=== PATIENT | female | born 1960 | race African-American/Black ===

== ENCOUNTER → 2017-12-01 15:15 | Outpatient (CLI) | payer BC, MEDICAID, SELFPAY | PROVIDERS: Family Provider Internal Medicine; PCP Internal Medicine; Visit Provider Nurse Practitioner Women's Health | DX: Z12.4 Encounter for screening for malignant neoplasm of cervix (principal) ==

== ENCOUNTER → 2018-01-13 13:20 | Outpatient (CLI) | payer BC, MEDICAID, SELFPAY ==
--- NOTE | 2018-01-13 13:30 | HPBI_ITS ---
MAMMOGRAPHY - UNILATERAL DIAGNOSTIC: RIGHT BREAST REASON FOR EXAM: Female, 57 years old. Pain in the lower inner quadrant of the right breast for 3 months. PERTINENT HISTORY: Non-contributory. TECHNIQUE: Digital unilateral breast birgit (3D mammographic acquisition) in the CC and MLO projections. 2-D mediolateral oblique (MLO) and craniocaudad (CC) views of both breasts were obtained. CAD: Full Field Digital Mammography with Computer Added Detection was performed. COMPARISON: Comparison is made with prior outside examination dated August 11, 2017. FINDINGS: Breast Composition: The breasts are heterogeneously dense, which may obscure small masses. There are no dominant masses or suspicious calcifications. There is a 6.2 mm x 6.5 mm well-defined nodule in the slightly inferior lateral midportion of the right breast. This most likely represents a small lymph node. Correlation with ultrasound is recommended. No other significant abnormalities are identified. HPBI/DIAG MAMM W/CAD, UNILAT IMPRESSION: 6.2 mm x 6.5 mm nodular density in the right breast as described. Correlation with ultrasound is recommended. ASSESSMENT CATEGORY: BIRADS Category 0: Incomplete. Need additional imaging evaluation. A letter regarding these results will be sent to the patient by the facility within 30 days. Approximately 10% of breast cancers are not detected by mammography. A normal mammogram should not delay biopsy of a clinically suspicious abnormality. Electronically Signed: Wale Gonzalez MD at 15:04 EDT Tel [phone], Service support ,
--- NOTE | 2018-01-13 14:30 | US_ITS ---
STUDY: ULTRASOUND BREAST - RIGHT REASON FOR EXAM: Female, 57 years old. Tenderness in the lower inner quadrant of the right breast. TECHNIQUE: Axial and longitudinal images of the RIGHT breast were performed with a high resolution ultrasound transducer. COMPARISON: Comparison is made with prior mammogram done earlier today. FINDINGS: RIGHT Breast: Sonographic examination of the lower inner quadrant was obtained. No solid or cystic mass lesion is seen. Routine mammographic follow-up is recommended. US/Breast Limited Unilateral IMPRESSION: No sonographic abnormality is seen. ASSESSMENT CATEGORY: BIRADS Category 2: Benign. A letter regarding these results will be sent to the patient by the facility within 30 days. Electronically Signed: Wale Gonzalez MD at 8:39 EDT Tel [phone], Service support ,
== END ==
PROVIDERS: Family Provider Internal Medicine; PCP Internal Medicine; Visit Provider Nurse Practitioner Women's Health
DX: N64.4 Mastodynia (principal)
CPT/HCPCS: 76642; 77061; 77065; G0279

== ENCOUNTER → 2018-12-16 16:33 | Outpatient (CLI) | payer BC, MEDICAID, SELFPAY ==
[2017-12-01 09:27] VITALS: BMI 39.6
--- NOTE | 2018-12-16 16:36 | BI_ITS ---
MAMMOGRAPHY - BILATERAL SCREENING REASON FOR EXAM: Female, 58 years old. Routine annual screening examination. PERTINENT HISTORY: Non-contributory. TECHNIQUE: Digital bilateral breast birgit (3D mammographic acquisition) in the CC and MLO projections. 2-D mediolateral oblique (MLO) and craniocaudad (CC) views of both breasts were obtained. CAD: Full Field Digital Mammography with Computer Added Detection was performed. COMPARISON: Comparison is made with prior mammogram dated January 13, 2018 and prior sonogram of the right breast dated January 13, 2018. FINDINGS: Breast Composition: The breasts are heterogeneously dense, which may obscure small masses. There is a 6.4 mm x 7.8 mm slightly irregular nodular density in the inferior central portion of the left breast. The patient will be recalled for additional views including 90 degree lateral and compression spot views and ultrasound of this nodular density. No other significant abnormalities are identified. BI/SCREENING MAMM (CAD), BILAT IMPRESSION: Nodular density in the left breast as described. The patient will be recalled for additional mammographic views and ultrasound. Recall Side: Left Breast ASSESSMENT CATEGORY: BIRADS Category 0: Incomplete. Need additional imaging evaluation. A letter regarding these results will be sent to the patient by the facility within 30 days. Approximately 10% of breast cancers are not detected by mammography. A normal mammogram should not delay biopsy of a clinically suspicious abnormality. [id number] Electronically Signed: Wale Gonzalez MD at 8:36 EST , Service support ,
== END ==
PROVIDERS: Family Provider Internal Medicine; PCP Internal Medicine; Referring Provider Nurse Practitioner Women's Health; Visit Provider Nurse Practitioner Women's Health
DX: Z12.31 Encounter for screening mammogram for malignant neoplasm of breast (principal)
CPT/HCPCS: 77063; 77067

== ENCOUNTER 2018-12-24 12:00 | Outpatient (RCR) | payer BC, MEDICAID, SELFPAY | END 2018-12-30 23:59 | LOC: NS 12:00 | PROVIDERS: Family Provider Internal Medicine; PCP Internal Medicine; Visit Provider Internal Medicine | DX: E66.01 Morbid (severe) obesity due to excess calories (principal); E78.00 Pure hypercholesterolemia, unspecified; M17.0 Bilateral primary osteoarthritis of knee | CPT/HCPCS: 97802; 97803 ==

== ENCOUNTER → 2018-12-28 09:28 | Outpatient (CLI) | payer BC, MEDICAID, SELFPAY ==
[2017-12-01 09:27] VITALS: BMI 39.6
--- NOTE | 2018-12-28 09:30 | BI_ITS ---
MAMMOGRAPHY - BILATERAL DIAGNOSTIC REASON FOR EXAM: Female, 58 years old. The patient was recalled for additional views of the left breast. PERTINENT HISTORY: Non-contributory. TECHNIQUE: Compression spot views and 90 degree lateral view of the left breast were obtained. CAD: Full Field Digital Mammography with Computer Added Detection was performed. COMPARISON: Comparison is made with prior mammogram dated December 16, 2018. FINDINGS: Breast Composition: The breasts are heterogeneously dense, which may obscure small masses. Stable appearance of the 6.4 mm x 7.8 mm slightly irregular nodule in the inferior central portion of the left breast as described. Correlation with ultrasound is recommended for further evaluation. No other significant abnormalities are identified. BI/DIAG MAMM W/CAD, BILAT IMPRESSION: Persistent nodular density as described. Correlation with ultrasound is recommended. ASSESSMENT CATEGORY: BIRADS Category 0: Incomplete. Need additional imaging evaluation. A letter regarding these results will be sent to the patient by the facility within 30 days. Approximately 10% of breast cancers are not detected by mammography. A normal mammogram should not delay biopsy of a clinically suspicious abnormality. Electronically Signed: Wale Gonzalez, at 10:50 EST , Service support ,
--- NOTE | 2018-12-28 09:30 | US_ITS ---
STUDY: ULTRASOUND BREAST - LEFT REASON FOR EXAM: Female, 58 years old. Abnormal screening mammogram. TECHNIQUE: Axial and longitudinal images of the LEFT breast were performed with a high resolution ultrasound transducer. COMPARISON: Comparison is made with prior mammogram dated December 16, 2018 and mammogram done earlier today. FINDINGS: LEFT Breast: The mammographic abnormality corresponds to a 6 mm x 7 mm x 5 mm slightly irregular solid and cystic nodule at the 7:00 position of the breast at 5 cm from nipple. A biopsy recommended for further evaluation. US/Breast Limited Unilateral IMPRESSION: 6 mm x 7 mm x 5 mm solid/cystic nodule at the 7:00 position of the breast at 5 cm from the nipple. A biopsy recommended. ASSESSMENT CATEGORY: BIRADS Category 4: Suspicious - Biopsy Should Be Considered. A letter regarding these results will be sent to the patient by the facility within 30 days. Electronically Signed: Wale Gonzalez, at 10:48 EST , Service support ,
== END ==
PROVIDERS: Family Provider Internal Medicine; PCP Internal Medicine; Referring Provider Nurse Practitioner Women's Health; Visit Provider Nurse Practitioner Women's Health
DX: R92.8 Other abnormal and inconclusive findings on diagnostic imaging of breast (principal)
CPT/HCPCS: 76642; 77066

== ENCOUNTER → 2019-01-11 09:01 | Outpatient (CLI) | payer BC, MEDICAID, SELFPAY ==
[2019-01-07 09:46] VITALS: BMI 42.3
--- NOTE | 2019-01-11 09:03 | US_ITS ---
STUDY: ULTRASOUND BREAST - LEFT REASON FOR EXAM: Female, 58 years old. Ultrasound guided left breast biopsy. TECHNIQUE: Axial and longitudinal images of the LEFT breast were performed with a high resolution ultrasound transducer. COMPARISON: Comparison is made with prior mammogram dated December 28, 2018 and prior ultrasound the left breast dated December 28, 2018. FINDINGS: LEFT Breast: Under direct sonographic guidance, the surgeon performed 4 core biopsies of the hypoechoic solid/cystic nodule at the 7:00 position breast at 5 cm from nipple. US/US Breast Biopsy 1st Lesion IMPRESSION: Ultrasound guided left breast biopsy. ASSESSMENT CATEGORY: BIRADS Category 4: Suspicious - Biopsy Should Be Considered. A letter regarding these results will be sent to the patient by the facility within 30 days. Electronically Signed: Wale Gonzalez, at 13:19 EDT , Service support ,
--- NOTE | 2019-01-11 09:30 | BRBX_PTH ---
PATIENT: GEORGIA GARBER LOC: OPUS U#:[id number] AGE/SX: 65/F ROOM: RE01/11/[address]: Dr. Kristi Licea MD : 1960 BED: DIS: SPEC #: [id number] RECD: 01/11/19 09:54 STATUS: SOUTH REJerrod #: [id number] KYLE: 01/11/19 09:[address]: Kristi Licea DEPT: SURGICAL PATHOLOGY RECD BY: Nicola Rao ENTERED: 01/11/19 11:35 SP TYPE: BREAST BX OTHR DR: Dr. Divya Alexandra MD Tissues: Left breast, NOS Procedures: Surgery Specimen Level IV HEADER OPERATION: Left breast biopsy PRE-OP DIAGNOSIS: Left breast mass TISSUE SUBMITTED: Left breast mass 7 o'clock, 5 cm from nipple, solid/cystic ISCHEMIC TIME: 1 minute FIXATION TIME: 10 hours MICROSCOPIC DIAGNOSIS Left breast mass, 7 o'clock, 5 cm from nipple, core biopsy: Fragments of fatty breast tissue with focal fibrocystic changes and blood clots. Negative for atypia or malignancy. SUE:alia 01/12/19 COMMENT Correlation with clinical, radiologic findings and appropriate follow up are necessary. MICROSCOPIC DESCRIPTION Slides are reviewed. GROSS DESCRIPTION Received in fixative is one container labeled with the patient's name and designated left breast. The specimen consists of multiple elongated fragments of young-yellow fibroadipose tissue that in aggregate measure 2.5 x 1.5 x 0.1 cm. The entire specimen is submitted in one cassette. / SUE:alia 01/11/19 TC:5 CPT: 07707
--- NOTE | 2019-01-11 10:00 | PCM.OPRPT ---
Report of Operation Date of Procedure: 01/11/19 Pre-Operative Diagnosis: Left breast nodule at 7:00 5 cm from the nipple Post-Operative Diagnosis: Same Surgery/Procedure Performed:: Left breast ultrasound-guided core biopsy Type of Anesthesia:: Local Specimen's removed: Left breast nodule 7:00 5 cm from the nipple Estimated Blood Loss (mL): minimal Description of Procedure: Procedure: Left ultrasound-guided core biopsy Indications: 58 year-old female with cystic/solid nodule at 7:00 in the left breast 5 centimeters from the nipple. Risk benefits were discussed the patient and she elected to proceed with ultrasound guided core biopsy with clip placement Description of procedure: Patient was brought into the ultrasound room in the left breast was marked. A timeout was completed verifying correct patient, procedure, site, specially, prior to beginning procedure. The left breast was prepped and draped in usual sterile fashion and using local anesthesia was obtained with 1% lidocaine with epi. The lesion was located with the ultrasound. Small incision was made with 11 blade to introduced the mammotome through the skin. Under ultrasound guidance multiple core samples were obtained using then 13-gauge mammotome and sent in formalin for pathology. The BARD ULTRACLIP ribbon shape was then deployed into the biopsy cavity under ultrasound guidance and a picture was taken. Upon completion procedure hemostasis was obtained and a Steri-Strip and OpSite were placed. Patient was then taken to the mammography suite for clip verification. The clip was verified. The patient tolerated the procedure well and was discharged from the breast imaging department good condition. Grafts/Implants Used: Bard ULTRACLIP dual trigger?ribbon shape - Complications None
== END ==
PROVIDERS: Family Provider Internal Medicine; PCP Internal Medicine; Referring Provider Surgery; Visit Provider Surgery
DX: N63.20 Unspecified lump in the left breast, unspecified quadrant (principal)
CPT/HCPCS: 19083; 88305

== ENCOUNTER 2019-01-21 10:00 | Outpatient (RCR) | payer BC, MEDICAID, SELFPAY ==
[2017-12-01 09:27] VITALS: BMI 39.6
[2019-01-07 09:46] VITALS: BMI 42.3
== END 2019-01-30 23:59 ==
LOC: NS 10:00
PROVIDERS: Family Provider Internal Medicine; PCP Internal Medicine; Visit Provider Internal Medicine
DX: E66.01 Morbid (severe) obesity due to excess calories (principal); E78.00 Pure hypercholesterolemia, unspecified; M17.0 Bilateral primary osteoarthritis of knee
CPT/HCPCS: 97803

== ENCOUNTER 2019-02-07 11:15 | Outpatient (RCR) | payer BC, MEDICAID, SELFPAY ==
[2019-01-07 09:46] VITALS: BMI 42.3
== END 2019-03-01 23:59 ==
LOC: NS 11:15
PROVIDERS: Family Provider Internal Medicine; PCP Internal Medicine; Visit Provider Internal Medicine
DX: E66.01 Morbid (severe) obesity due to excess calories (principal); E78.00 Pure hypercholesterolemia, unspecified; M17.0 Bilateral primary osteoarthritis of knee; Z71.3 Dietary counseling and surveillance
CPT/HCPCS: 97803

== ENCOUNTER 2019-03-18 10:45 | Outpatient (RCR) | payer BC, MEDICAID, SELFPAY ==
[2019-01-07 09:46] VITALS: BMI 42.3
== END 2019-04-01 23:59 ==
LOC: NS 10:45
PROVIDERS: Family Provider Internal Medicine; PCP Internal Medicine; Visit Provider Internal Medicine
DX: E66.01 Morbid (severe) obesity due to excess calories (principal); E78.00 Pure hypercholesterolemia, unspecified; M17.0 Bilateral primary osteoarthritis of knee; Z71.3 Dietary counseling and surveillance
CPT/HCPCS: 97803

== ENCOUNTER 2019-05-31 09:30 | Outpatient (RCR) | payer BC, MEDICAID, SELFPAY ==
[2019-01-07 09:46] VITALS: BMI 42.3
== END 2019-06-01 23:59 ==
LOC: NS 09:30
PROVIDERS: Family Provider Internal Medicine; PCP Internal Medicine; Visit Provider Internal Medicine
DX: Z71.3 Dietary counseling and surveillance (principal); E66.01 Morbid (severe) obesity due to excess calories; E78.00 Pure hypercholesterolemia, unspecified; M17.0 Bilateral primary osteoarthritis of knee
CPT/HCPCS: 97803

== ENCOUNTER 2019-06-28 11:00 | Outpatient (RCR) | payer BC, MEDICAID, SELFPAY ==
[2019-01-07 09:46] VITALS: BMI 42.3
== END 2019-06-28 23:59 | disposition home or self-care (01) ==
LOC: NS 11:00
PROVIDERS: Family Provider Internal Medicine; PCP Internal Medicine; Visit Provider Internal Medicine
DX: Z71.3 Dietary counseling and surveillance (principal); E66.01 Morbid (severe) obesity due to excess calories; E78.00 Pure hypercholesterolemia, unspecified; M17.0 Bilateral primary osteoarthritis of knee
CPT/HCPCS: 97802; 97803

== ENCOUNTER → 2019-07-08 08:45 | Outpatient (CLI) | payer BC, MEDICAID, SELFPAY ==
[2019-01-07 09:46] VITALS: BMI 42.3
--- NOTE | 2019-07-08 08:48 | BI_ITS ---
MAMMOGRAPHY - UNILATERAL DIAGNOSTIC: LEFT BREAST REASON FOR EXAM: Female, 59 years old. Six-month follow-up for left breast biopsy. PERTINENT HISTORY: Non-contributory. TECHNIQUE: Digital unilateral breast birgit (3D mammographic acquisition) in the CC and MLO projections. 2-D mediolateral oblique (MLO) and craniocaudad (CC) views of both breasts were obtained. CAD: Full Field Digital Mammography with Computer Added Detection was performed. COMPARISON: Comparison is made with prior study dated December 16, 2018 and December 28, 2018. FINDINGS: Breast Composition: The breasts are heterogeneously dense, which may obscure small masses. There are no dominant masses or suspicious calcifications. The previously seen nodular density in the inferior central portion of the left breast has decreased in size. A tissue clip marker is seen within it. No other significant abnormalities are identified. BI/DIAG MAMM W/CAD, UNILAT IMPRESSION: Stable unilateral diagnostic mammogram. One year follow-up mammogram recommended. (A) ASSESSMENT CATEGORY: BIRADS Category 2: Benign. A letter regarding these results will be sent to the patient by the facility within 30 days. Approximately 10% of breast cancers are not detected by mammography. A normal mammogram should not delay biopsy of a clinically suspicious abnormality. Electronically Signed: Wale Gonzalez, at 10:20 EDT , Service support ,
--- NOTE | 2019-07-08 08:48 | US_ITS ---
STUDY: ULTRASOUND BREAST - LEFT REASON FOR EXAM: Female, 59 years old. Six-month follow-up following left breast biopsy. TECHNIQUE: Axial and longitudinal images of the LEFT breast were performed with a high resolution ultrasound transducer. COMPARISON: Comparison is made with prior ultrasound of the breasts dated January 11, 2019 and prior mammogram done earlier today. FINDINGS: LEFT Breast: The previously seen nodule at the 7:00 position of the breast at 5 cm from nipple is not seen at this time. This corresponds to the mammographic findings. US/Breast Limited Unilateral IMPRESSION: No sonographic abnormality seen at this time. ASSESSMENT CATEGORY: BIRADS Category 1: Negative. A letter regarding these results will be sent to the patient by the facility within 30 days. Electronically Signed: Wale Gonzalez, at 11:00 EDT , Service support ,
== END ==
PROVIDERS: Family Provider Internal Medicine; PCP Internal Medicine; Referring Provider Surgery; Visit Provider Surgery
DX: N63.20 Unspecified lump in the left breast, unspecified quadrant (principal)
CPT/HCPCS: 76642; 77061; 77065; G0279

== ENCOUNTER 2019-10-23 20:35 | Emergency (ER) | payer BC, MEDICAID, SELFPAY ==
[2019-01-07 09:46] VITALS: BMI 42.3
[2019-10-23 20:36] VITALS: BP 164/69; PULSE 72; RESP 16; TEMP 36.7; O2SAT 99; BMI 40.7
--- NOTE | 2019-10-23 21:12 | CT_ITS ---
HISTORY: DIZZINESS AND HEADACHE WITH PAIN TO BACK OF HEAD HX:HTN,DIABETES,VERTIGO,PT JUST STARTED BP MEDS THIS WEEK ADDITIONAL HISTORY: None provided. COMPARISON: None TECHNIQUE: Axial, coronal and sagittal CT images were obtained of the brain without intravenous contrast. Number of images including paperwork: 235. A radiation dose optimization technique was used for this scan. FINDINGS: BRAIN PARENCHYMA: No acute hemorrhage or mass. No definite acute infarct; MRI more sensitive. EXTRA-AXIAL SPACES: No acute hemorrhage. VENTRICULAR SYSTEM: No hydrocephalus. PARANASAL SINUSES AND MASTOIDS: No air-fluid level in the imaged extent. ORBITS: Unremarkable imaged extent. SKELETON AND SOFT TISSUES: Calvarium intact. ASPECTS score: Not applicable. CT/Brain/Head without Contrast IMPRESSION: No acute intracranial abnormality. Individualized dose optimization techniques were used for this CT. at 2244 Reported and signed by: Kasia Garcia MD Electronically Signed: Kasia Garcia MD at 22:44 EST Tel , Service support ,
--- NOTE | 2019-10-23 21:12 | EKG12_ITS ---
Test Reason : DIZZY Blood Pressure : / mmHG Vent. Rate : 067 BPM Atrial Rate : 067 BPM P-R Int : 164 ms QRS Dur : 096 ms QT Int : 422 ms P-R-T Axes : 050 -15 032 degrees QTc Int : 445 ms Normal sinus rhythm Normal ECG Confirmed by MARYCARMEN ALVAREZ, SENAIT ([id number]), rewrite editor ALICIA WHITE ([id number]) on 10/27/2019 8:51:34 AM Referred By: [place] Confirmed By:SENAIT CONROY MD
--- NOTE | 2019-10-23 21:14 | ED.RN ---
NO OLD EKGS IN MUSE
[2019-10-23 21:32] LABS: Absolute Lymphocyte Count 2.63 X10^3/uL (0.83-4.51); Absolute Neutrophil Count 9.2 X10^3/uL (2.0-7.7); Basophil# 0.06 X10^3/uL; Basophil% 0.5 % (0-1); Eosinophil# 0.27 X10^3/uL; Eosinophils% 2.1 % (0-5); Hematocrit 45.7 % (37-47); Hemoglobin 14.4 g/dL (12.0-15.0); Lymphocyte # 2.63 X10^3/ul (4.0); Lymphocyte % 20.2 % (19-41); Mean Corp Hgb Conc 31.5 g/dL (32-36); Mean Corpuscular Hgb 28.3 pg (27.0-32.0); Mean Corpuscular Volume 89.8 fL (81-99); Mean Platelet Vol. 10.5 fl (6.2-12.0); Monocyte# 0.86 X10^3/uL; Monocyte% 6.6 % (0-10); NRBC Flagged by Analyzer 0 % (0-5); Neutrophil # 9.19 X10^3/uL (2.7-7.7); Neutrophil % 70.4 % (47-70); Platelet Count 352 K/mm3 (150-450); RBC Distribution Width CV 13.2 % (11.6-14.6); RBC Distribution Width SD 43.4 fl (35.1-43.9); Red Blood Count 5.09 M/mm3 (4.2-5.4)
[2019-10-23 21:45] LABS: Anion Gap 5 (5-15); BUN 17 mg/dL (7-18); BUN/Creat Ratio 17.3 RATIO (10-20); Calcium,Total 9.3 mg/dL (8.5-10.1); Chloride 106 mmol/L (98-107); Creatinine, Serum 0.98 mg/dL (0.55-1.02); EST Glomerular Filtration Rate 61 mL/min (>60); Est Glom Filt Rate - Afr Amer 74 mL/min (>60); Estimated Creatinine Clearance 59.37 ml/min; Glucose 108 mg/dL (74-106); Potassium 3.5 mmol/L (3.5-5.1); Sodium Level 141 mmol/L (136-145)
--- NOTE | 2019-10-23 23:10 | ED.DCSUM_ITS ---
- ER Visit Summary Date of Service: 10/23/19 Chief Complaint: Neck pain History of Present Illness: The patient is a [address] Alexandra. Patient reports that she is sitting on the table and been segmented for approximate 15 minutes when she had the abrupt onset of an aching pain the back of her neck that was 7 out of 10 in severity at worst. Is 4-10 currently. States that she became very lightheaded with this. She did not pass out. However, she reports that her vision blurred for approximately 15 minutes. She denies any associated chest pain, shortness of breath, or palpitations. She denies any numbness or weakness. She denies any recent trauma. No fall, MVA, or change in activity. Patient denies any other complaints. No headache, numbness, weakness, fever, chills. Physical Examination: Vitals: Stable. Afebrile. General: Well-nourished and well-developed. Head: Normocephalic atraumatic. Neck: Supple, no lymphadenopathy. No JVD. Moderate tenderness palpation of the insertion of her paraspinous musculature on the occipital scalp bilaterally that does reproduce her pain. Cardiovascular: Regular rate and rhythm. No murmurs. Respiratory: No respiratory distress. Clear to auscultation bilaterally. Abdominal: Soft, nontender, nondistended, normal bowel sounds. No guarding, rebound, or peritoneal signs. Back: Nontender. Extremities: Nontender, no edema. Skin: Normal color, no rash. Neurologic: Alert and oriented ?3. Cranial nerves II through XII are intact. Normal strength and sensation. Psych: Normal affect. Test Results: EKG is sinus at [address] changes. Troponin is negative. Chem-7 is more for glucose 108. CBC is marked for white count of 13.0. CT brain shows no acute disease. Emergency Department Course and Treatment: Patient's NIH scale is 0. She is res ting comfortably. She was given a dose of [place] p.o. Treatment Plan: Patient be discharged with [place]. Instructed to follow-up with her primary care physician 1 to 2 days if not improving. Return to the emergency department for any worsening symptoms. Disposition: To home in improved and stable condition. Impression: 1. Neck spasm. 2. Near syncope. This note was generated with [employer] software. It may contain incorrect words, spelling, and punctuation that were not noted in review of the chart prior to signing ED Disposition - Plan for ED Patient: Disposition: Home or Assisted Living Instructions: NECK SPASM, No Trauma Prescriptions: Hydrocodone Bitart/Apap 5-325 [[place] 5MG-325MG] 1 tab PO Q4H PRN PRN 2 Days #10 tab PRN Reason: Pain Prescription Printed Referrals: Divya Alexandra MD [Primary Care Provider] - 1-2 Days if not improving
[2019-10-23] MEDS: HYDROcodone Bitartrate/Apap 5/325 Tablet PO (23:16)
[2019-10-23 23:17] VITALS: BP 136/82; PULSE 61; RESP 18; O2SAT 99
== END 2019-10-23 23:23 | disposition home or self-care (01) ==
LOC: ED 21:15
PROVIDERS: Emergency Provider Emergency Medicine; Family Provider Internal Medicine; PCP Internal Medicine
DX: M62.838 Other muscle spasm (principal); R55 Syncope and collapse; M54.2 Cervicalgia; I10 Essential (primary) hypertension; H53.8 Other visual disturbances; R42 Dizziness and giddiness; Z79.899 Other long term (current) drug therapy
CPT/HCPCS: 70450; 80048; 84484; 85025; 93005; 96360; 99285; J7030; A4216

== ENCOUNTER 2020-05-29 09:16 | Emergency (ER) | payer BC, MEDICAID, SELFPAY ==
[2020-05-29 09:17] VITALS: BP 204/108; PULSE 83; RESP 16; TEMP 37; O2SAT 98; BMI 40.7
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
[2020-05-29] MEDS: Ketorolac 30 MG/ML Syringe IM (09:43)
== END 2020-05-29 10:07 | disposition home or self-care (01) ==
PROVIDERS: Emergency Provider Student in an Organized Health Care Education/Training Program; PCP Internal Medicine
DX: S29.012A Strain of muscle and tendon of back wall of thorax, initial encounter (principal); V44.5XXA Car driver injured in collision with heavy transport vehicle or bus in traffic accident, initial encounter; Y93.9 Activity, unspecified; Y92.9 Unspecified place or not applicable
CPT/HCPCS: 96372; 99282

== ENCOUNTER → 2022-07-10 | Outpatient (CLI) | payer OTHER, MEDICAID, SELFPAY ==
--- NOTE | 2022-07-10 15:48 | CT_ITS ---
STUDY: CT SOFT TISSUE NECK WITHOUT CONTRAST REASON FOR EXAM: Female, 62 years old. Subglottic stenosis. RADIATION DOSAGE (If Supplied By Facility): CTDIvol = ( 17.68 ) mGy, DLP = ( 481.45 ) mGycm TECHNIQUE: The patient was scanned in a multi-detector CT scanner. High resolution transaxial imaging was performed without the administration of intravenous contrast material. Sagittal and coronal images were reconstructed. Individualized dose optimization techniques were used for this CT. COMPARISON: None. FINDINGS: Normal bilateral parotid glands. Normal bilateral milling supervisor spaces. Normal bilateral parapharyngeal spaces. Normal bilateral carotid spaces. Normal bilateral sublingual and submandibular glands and spaces. Normal visualized nasopharynx. Normal retropharyngeal space. Normal perivertebral space. Normal visualized bilateral faucial tonsils. The visualized tongue, tongue base and oropharynx are normal. The visualized cervical lymph nodes (levels I-) are within normal size limits, and maintain normal morphology. There is no demonstrated solid or cystic mass lesion. Normal epiglottis, bilateral vallecula and hypopharynx. The pre-epiglottic and paraglottic adipose spaces are normal. Normal visualized bilateral piriform sinuses, aryepiglottic folds, vocal cords, and arytenoid-cricoid articulations. Question soft tissue density versus debris within the trachea just below the true cords. This is best seen on image 37 of series 2. Otherwise normal subglottic trachea. Normal bilateral lobes of the thyroid gland. Normal visualized pulmonary apices. Normal visualized paranasal sinuses. There is multilevel degenerative changes of the cervical spine. CT/Soft Tissue Neck without Contr IMPRESSION: 1. Minimal density in the subglottic trachea immediately below the true cords. Debris versus soft tissue swelling. 2. Degenerative changes cervical spine. 3. Otherwise normal noncontrast CT of the soft tissues of the neck. Electronically Signed: Jamar Kelly DO at 16:16 EDT ,
== END | disposition home or self-care (01) ==
LOC: CT 15:47
PROVIDERS: PCP Internal Medicine; Referring Provider Otolaryngology; Visit Provider Otolaryngology
DX: J95.5 Postprocedural subglottic stenosis (principal)
CPT/HCPCS: 70490

== ENCOUNTER → 2023-04-24 | Outpatient (CLI) | payer OTHER, MEDICAID, SELFPAY ==
[2023-04-29 16:09] LABS: HPV APTIMA, High Risk Negative (Negative)
== END | disposition home or self-care (01) ==
LOC: LABSPEC 12:31
PROVIDERS: PCP Internal Medicine; Referring Provider Obstetrics & Gynecology; Visit Provider Obstetrics & Gynecology
DX: Z12.4 Encounter for screening for malignant neoplasm of cervix (principal); R10.2 Pelvic and perineal pain
CPT/HCPCS: 87086; 87088; 87624; 88175; G0145

== ENCOUNTER → 2023-04-28 | Outpatient (CLI) | payer OTHER, MEDICAID, SELFPAY ==
--- NOTE | 2023-04-28 15:09 | US_ITS ---
INDICATION: pelvic pain EXAMINATION: Ultrasound US Pelvis Non OB Complete With Transvaginal Imaging COMPARISON: None. FINDINGS: 91 grayscale ultrasound images of the pelvis obtained both transabdominally and transvaginally. In addition dedicated ovarian color Doppler and Doppler waveform interrogation was performed. Suboptimal secondary to overlying bowel. UTERUS: Uterus measures : 7.2 x 4.9 x 3.3 cm. Endometrial thickness of 0.4 cm. Myometrium is somewhat heterogeneous. ADNEXA: Flow is documented to bilateral ovaries by color Doppler as well as Doppler waveform. Right ovary is not visualized. Left ovary is unremarkable. No significant free fluid. US/Pelvic (Non ) IMPRESSION: Left ovary is not visualized. Otherwise unremarkable pelvic ultrasound. Electronically Signed: Presley Chaudhry MD at 4:30 EDT ,
== END | disposition home or self-care (01) ==
PROVIDERS: PCP Internal Medicine; Referring Provider Obstetrics & Gynecology; Visit Provider Obstetrics & Gynecology
DX: R10.2 Pelvic and perineal pain (principal)
CPT/HCPCS: 76830; 76856; 93976

== ENCOUNTER 2023-12-23 13:56 | Outpatient (RCR) | payer OTHER, MEDICAID, SELFPAY ==
[2023-12-23 14:12] VITALS: BP 146/72; PULSE 85; RESP 18; TEMP 36.9; BMI 42.3
--- NOTE | 2023-12-23 16:07 | PCM.WC.HP ---
History of Present Illness Date of Service: 12/23/23 Chief Complaint: Right leg ulceration History of Wound: Chronic wound since August 2023 Progress of Wound: Ms. Gant is a 63-year-old female presenting to the wound care center at [facility] with a chief complaint of full-thickness ulceration to the lateral aspect of the right leg. Patient is unsure how the wound came about. Patient is unsure if she struck her wound, got a bug bite or accidentally cut her right leg. What she does know is that the wound has been present since August 2023. She admits that the wound is still present without treatment. She denies being a diabetic. She denies any treatment to the area. She denies constitutional symptoms. No other pedal complaints at this time. [facility] Medical History Arthritis Home Medications acetaminophen 500 mg tablet (Tylenol Extra Strength) 500 mg PO Q6H PRN Pain Score 1-08/1101/07/19 [History Last Taken Unknown] hydrochlorothiazide 12.5 mg capsule 25 mg PO DAILY 05/29/20 [History Last Taken 05/29/20] atorvastatin 20 mg tablet (Lipitor) 40 mg PO DAILY 04/24/23 [History Last Taken Unknown] lansoprazole 30 mg capsule,delayed release (Prevacid) 30 mg PO DAILY 04/24/23 [History Last Taken Unknown] valsartan 80 mg tablet 160 mg PO DAILY 04/24/23 [History Last Taken Unknown] carbamide peroxide 6.5 % ear drops (Debrox) 5 drp EACH EAR BID 12/23/23 [History Last Taken Unknown] etodolac 400 mg tablet 400 mg PO BID 12/23/23 [History Last Taken Unknown] Allergy/AdvReac Type Severity Reaction Status Date / Time No Known Allergies Allergy Verified 04/24/23 10:39 Family History Mother Diabetes Heart disease Surgical History colonoscopy gallbladder surgery Status post left knee replacement Social History Smoking Status: Never smoker alcohol intake: never substance use type: does not use caffeine: Yes what type of physical activity do you participate in: none seatbelt use: always do you feel safe at home: Yes additional social history: Single [place] in [place] Vital Signs Vital Signs Vital Signs: 12/23/23 14:12 Temperature 98.4 F Temperature Source Temporal Pulse Rate 85 Respiratory Rate 18 Blood Pressure 146/72 H Blood Pressure Mean 96 Blood Pressure Source Monitor Blood Pressure Position Sitting Blood Pressure Location Left Arm Oxygen Delivery Method Room Air Weight Weight: 122.47 kg Body Mass Index (BMI) 42.3 Physical Exam Narrative Vascular: DP and PT pulses are lightly palpable. CFT is brisk. Skin temperature great is warm to warm from proximal ankle to distal digits bilateral. No focal increase noted. Evidence of varicosities appreciated to the right lower extremity. Neurological: Light touch and epicritic sensation is intact. Dermatological: Full-thickness ulceration to the lateral aspect of the right lower extremity measuring 1.5 x 1.7 x 0.1 cm. Wound base is fibrogranular nature. No evidence of erythema or proximal streaking. No drainage. No probe to bone. No sign of infection. Evidence of varicosities appreciated right lower extremity. Excisional debridement down to and including subcutaneous tissue with a number 5 mm dermal curette to the level of the right lower extremity full-thickness ulceration. Predebridement measurement was 1.2 x 1.5 x 0.1 cm. Postdebridement measurement is 1.5 x 1.0 x 0.1 cm. Musculoskeletal: Mild pain to palpation to the full-thickness ulceration to right leg. No pain with calf compression. Debridement Note Debridement Note Debridement Free Text: Excisional debridement down to and including subcutaneous tissue with a number 5 mm dermal curette to the level of the right lower extremity full-thickness ulceration. Predebridement measurement was 1.2 x 1.5 x 0.1 cm. Postdebridement measurement is 1.5 x 1.0 x 0.1 cm. Post-Debridement Measurements and Additional Note: Post-Debridement Measurements/Treatment WC - Nurse 1 - General Ulcer Assessment Start: 12/23/23 14:11 Freq: Status: Active Protocol: MELE Activity Type Activity Date Activity User E-sign Co-sign Detail Recorded Client Recorded Date Recorded By Document 12/23/23 14:12 GM Desktop 12/23/23 14:33 GM 12/23/23 14:12 WC - Today's Visit Information Type of service Initial Visit Arrival Mode Ambulatory Transfer Assistance None Patient Identification Verified (Name & Yes ) Height and Weight Height 5 ft 7 in Weight 122.47 kg Weight in Pounds 270.0 lbs Weight Measurement Method Stated by Patient Body Mass Index (BMI) 42.3 BMI Classification Obese BSA - Chirag 2.30 Vital Signs Temperature (97.8 F-99.1 F) 98.4 F Temperature Source Temporal Pulse Rate (60-100) 85 Pulse Location Monitor Respiratory Rate (12-18) 18 Respiratory rate source Observation Oxygen Delivery Method Room Air Blood Pressure (90/60-120/80) 146/72 H Blood Pressure Mean 96 Source Monitor Position Sitting Blood Pressure Location Left Arm History Since Last Visit- (Skip if this is Patient's initial visit) Left Footwear Regular Shoe Right Footwear Regular Shoe Pain Scale: 0-10 Numeric Is Patient Pain Free? Yes Lower Extremity Assessment/ Foot Assessment/ Toe Nail Assessment Right -Claudication Assessment Rest Pain -Polpliteal Pulses Palpable No -Posterior Tibial Palpable No -Dorsalis Pedis Palpable Yes -Dorsalis Pedis Doppler Monophasic -Extremity Color Normal -Hair Growth on Legs No -Hair Growth on Toes No -Temperature of Extremity Warm -Capillary Refill Less than 3 Seconds -Dependent Rubor No -Blanched when Elevated No -Lipodermatosclerosis No -Other Deformity No -Prior Foot Ulcer No -Charcot Joint No -Prior Amputation No -Thick Yes -Discolored Yes -Deformed No -Improper Length & Hygeine No Neuropathy Assessment Feet - Top Side and Bottom <Entered> (a) Communication Assessment Preferred language Bulgarian Directory Operator Required No Able to Read Yes Able to Write Yes Right Hearing Abillity Normal Left Hearing Abillity Normal Visual Assistive Devices Glasses Teaching Assessment Preferences Verbal,Written, Demonstration Barriers to Learning None Readiness To Learn Excellent Willingness to Engage in Self Management High Activies Readiness to Engage in Self Management High Activities Anxiety Level Calm Cooperation Cooperative Perception Coherent Interest in Health Problem Asks Questions Does Patient Smoke tobacco or other No substances Functional Assessment Recent Decline in Ability to Perform Denies Any Declines Assistive Device With Patient No Culture/Worship/Music Critic Cultural/Worship Needs that may affect No Treatment Plan Would you allow our hospital electro mechanical designer to No meet you for the purpose of spiritual/ emotional support? Music Critic to contact place of voodoo No Teaching: Wound Center Admission to -Person Taught Patient -Teaching Method Discussion -Response to teaching Verbalize understanding (a) 1 - sensation is present 2 - sensation is present on dorsum - Nurse 1 - General Ulcer Measurement Start: 12/23/23 14:11 Freq: Status: Active Protocol: Activity Type Activity Date Activity User E-sign Co-sign Detail Recorded Client Recorded Date Recorded By Document 12/23/23 14:12 Desktop 12/23/23 14:33 12/23/23 14:12 Wound Center Nurse 1 #1 Right lateral lower leg -Current Size (cm) - Length 1.5 -Current Size (cm) - Width 1.5 -Current Size (cm) - Depth 0.1 -Total Square Cm 2.25 -Date of Last Picture (Recall this 12/23/23 field) -Photo Taken Yes -Epithelialization None Present -Tunneling No -Undermining/Tunneling No -Circular Undermining No -Exudate Amt None Present -Wound Margin Distinct, Outline Attached -Slough/Fibrin Yes -Necrosis Amt Large (67-100%) -Necrotic Tissue Type Adherent Slough -Structure Exposed N/A -Texture (Goldie-wound Skin Appearance) Assessed -Moisture (Goldie-wound Skin Appearance) Assessed -Color (Goldie-wound Skin Appearance) Assessed -Temperature (Goldie-wound Skin No Abnormality Appearance) (Pt Warm) -Ulcer Cleansing Rinsed/ Irrigated with Saline -Foul Odor after Cleansing No -Anesthetic Used 5% Lidocaine Gel Right Calf (cm) 45.3 Right Ankle (cm) 33.3 - Nurse 2 - General Ulcer CM Notes Start: 12/23/23 14:11 Freq: Status: Active Protocol: Activity Type Activity Date Activity User E-sign Co-sign Detail Recorded Client Recorded Date Recorded By Document 12/23/23 14:58 Laptop 12/23/23 15:07 12/23/23 14:58 Wound Center Nurse 2 #1 Right lateral lower leg -Time 15:03 -Correct Patient Yes -Correct Side, Site, Position Yes -Correct Procedure Yes -Procedure Performed Yes -Type of Procedure Debridement -Clinical Debridement Subcutaneous -Tissue Removed Subcutaneous -Post Debridement (cm) - Length 1.5 -Post Debridement (cm) - Width 1.7 -Post Debridement (cm) - Depth 0.1 -Total Square (Post) (cm) 2.55 -Area of Debridement (cm) - Length 1.5 -Area of Debridement (cm) - Width 1.7 -Total Square (Area) (cm) 2.55 -Tunneling No -Undermining/Tunneling No -Circular Undermining No -Wound/Ulcer Outcome Not Healed -Ulcer Cleansing Rinsed/ Irrigated with Saline -Foul Odor after Cleansing No -Bioengineered Tissue No -Bleeding Controlled with Pressure -Treatment Response Procedure Tolerated Well -Offloading No -Debridement - Subq, 1st 20sq cm Yes Pain Scale: 0-10 Numeric Is Patient Pain Free? Yes - Nurse 3 - General Ulcer D/C NN Start: 12/23/23 14:11 Freq: Status: Active Protocol: Activity Type Activity Date Activity User E-sign Co-sign Detail Recorded Client Recorded Date Recorded By Document 12/23/23 15:27 GM Desktop 12/23/23 15:28 GM 12/23/23 15:27 Wound Care Center Nurse 3 #1 Right lateral lower leg -Ulcer Cleansing Not Cleansed -Foul Odor after Cleansing No -Primary Dressing Applied Promogran Alissa Matter -Primary Dressing Covered/Secured with Dry Gauze & Roll Gauze, Secured with Tape -Promogran Alissa Matter 1 Right -Tubular Bandage Single Layer -Size of Tubigrip Used Size E -Size E ($) 1 Pain Scale: 0-10 Numeric Is Patient Pain Free? Yes Teaching: Wound Center Compression and elevation -Person Taught Patient -Teaching Method Discussion -Response to teaching Verbalize understanding Dressing Your Wound -Person Taught Patient -Teaching Method Discussion, Demonstration -Response to teaching Verbalize understanding *Debridement -Person Taught Patient -Teaching Method Discussion -Response to teaching Verbalize understanding WC - Visit Discharge Discharge Condition Stable Ambulatory Status Ambulatory Transportation Private Auto Medication Reconcilliation completed & Yes provided to patient/care provider Clinical Summary of Care Provided Yes Assessment/Plan Assessment/Plan (1) Non-pressure chronic ulcer of other part of right lower leg with fat layer exposed: CODE(S): L97.812 - Non-pressure chronic ulcer of other part of right lower leg with fat layer exposed PLAN: Patient was examined and evaluated. All findings were discussed with the patient. All questions were answered to the patient's satisfaction. Excisional debridement down to and including subcutaneous tissue with a number 5 mm dermal curette to the level of the right lower extremity full-thickness ulceration. Predebridement measurement was 1.2 x 1.5 x 0.1 cm. Postdebridement measurement is 1.5 x 1.0 x 0.1 cm. Right lower extremities were cleaned and patted dry. The ulceration was dressed with Alissa, dry sterile dressing and a single-layer Tubigrip was placed over the right lower extremity. The ulceration was cultured sent off to microbiology for culture and sensitivity antibiotic treatment to follow if needed. Due to the patient's varicosities and decrease palpable pulses we will begin authorization for venous and PVR/arterial studies. Due to the chronicity of the wound since August 2023 the patient was given an order to get tib-fib x-rays of the right lower extremity to rule out any underlying bone infection. Will begin authorization to the patient's insurance for home wound care dressings for [place] which will consist of Alissa, dry sterile dressing and single-layer Tubigrip that would need to be changed every other day until her wound is healed. Follow-up at the wound care center with Dr. Guillen in 1 week. (2) Peripheral vascular disease: CODE(S): I73.9 - Peripheral vascular disease, unspecified (3) Right leg pain: CODE(S): M79.604 - Pain in right leg
[2023-12-30 15:42] VITALS: BP 157/65; PULSE 89; RESP 18; BMI 42.3
--- NOTE | 2023-12-30 16:14 | PCM.WC.PN ---
History of Present Illness Date of Service: 12/30/23 Chief Complaint: Right leg ulceration History of Wound: Chronic wound since August 2023 Progress of Wound: Ms. Gant is a 63-year-old female presenting to the wound care center at [facility] with a chief complaint of full-thickness ulceration to the lateral aspect of the right leg. Patient is unsure how the wound came about. Patient is unsure if she struck her wound, got a bug bite or accidentally cut her right leg. What she does know is that the wound has been present since August 2023. She admits that the wound is still present without treatment. She denies being a diabetic. She denies any treatment to the area. She denies constitutional symptoms. No other pedal complaints at this time. Subjective Subjective Mrs. Gant is a 63-year-old female resenting to wound care center for follow-up and evaluation of full-thickness ulceration to the right leg. Patient has gotten her dressing supplies and is doing her home dressing changes daily. She denies any drainage to the wound. She states that there is no evidence of redness or sign of infection. She denies any pain right lower extremity. She denies trauma. Denies constitutional symptoms. No other pedal complaints at this time. Objective Data Objective Data Vital Signs: Vital Signs Temp Pulse Resp BP O2 Del Method 98.4 F 89 18 157/65 H Room Air 12/23/23 14:12 12/30/23 15:42 12/30/23 15:42 12/30/23 15:42 12/30/23 15:42 Oxygen Delivery Method Room Air Weight: 122.47 kg Body Mass Index (BMI) 42.3 Lab / Micro Data Micro: Microbiology 12/23/23 15:00 Wound - Leg, Right Gram Stain - Final 12/23/23 15:00 Wound - Leg, Right Wound Culture - Final No growth aerobically. 12/23/23 15:00 Wound - Leg, Right Anaerobic Culture - Final No anaerobic bacteria isolated. Physical Exam Narrative Vascular: DP and PT pulses are lightly palpable. CFT is brisk. Skin temperature great is warm to warm from proximal ankle to distal digits bilateral. No focal increase noted. Evidence of varicosities appreciated to the right lower extremity. Neurological: Light touch and epicritic sensation is intact. Dermatological: Full-thickness ulceration to the lateral aspect of the right lower extremity measuring 1.8 x 2.2 x 0.1 cm. Wound base is fibrogranular nature. No evidence of erythema or proximal streaking. No drainage. No probe to bone. No sign of infection. Evidence of varicosities appreciated right lower extremity. Excisional debridement down to and including subcutaneous tissue with a number 5 mm dermal curette to the level of the right lower extremity full-thickness ulceration. Predebridement measurement was 1.7 x 2.0 x 0.1 cm. Postdebridement measurement is 1.8 x 2.2 x 0.1 cm. Musculoskeletal: Mild pain to palpation to the full-thickness ulceration to right leg. No pain with calf compression. Debridement Note Debridement Note Debridement Free Text: Excisional debridement down to and including subcutaneous tissue with a number 5 mm dermal curette to the level of the right lower extremity full-thickness ulceration. Predebridement measurement was 1.7 x 2.0 x 0.1 cm. Postdebridement measurement is 1.8 x 2.2 x 0.1 cm Post-Debridement Measurements and Additional Note: Post-Debridement Measurements/Treatment - Nurse 1 - General Ulcer Assessment Start: 12/23/23 14:11 Freq: Status: Active Protocol: [email or web address] Activity Type Activity Date Activity User E-sign Co-sign Detail Recorded Client Recorded Date Recorded By Document 12/23/23 14:12 GM Desktop 12/23/23 14:33 GM Document 12/30/23 15:42 KW Desktop 12/30/23 15:49 KW 12/23/23 12/30/23 14:12 15:42 - Today's Visit Information Type of service Initial Visit Follow-up Visit (Physician/DOOR CLAMP OPERATOR ) Arrival Mode Ambulatory Ambulatory Transfer Assistance None Patient Identification Verified (Name & Yes Yes ) Height and Weight Height 5 ft 7 in Weight 122.47 kg Weight in Pounds 270.0 lbs Weight Measurement Method Stated by Patient Body Mass Index (BMI) 42.3 42.3 BMI Classification Obese Obese BSA - Chirag 2.30 Vital Signs Temperature (97.8 F-99.1 F) 98.4 F Temperature Source Temporal Pulse Rate (60-100) 85 89 Pulse Location Monitor Monitor Respiratory Rate (12-18) 18 18 Respiratory rate source Observation Observation Oxygen Delivery Method Room Air Room Air Blood Pressure (90/60-120/80) 146/72 H 157/65 H Blood Pressure Mean (mm Hg) 96 95 Source Monitor Monitor Position Sitting Semi-Fowlers Blood Pressure Location Left Arm Left Arm History Since Last Visit- (Skip if this is Patient's initial visit) Have you changed medications since your No last visit? Any new allergies or adverse reactions No Had a fall/change in ADL's that may No increase risk of falls Signs or symptoms of abuse and/or No neglect since last visit Have you been in the hospital since your No last visit? Has dressing in place as prescribed Yes Has compression in place as prescribed Yes Has offloadiing in place as prescribed N/A Experienced any changes in pain level or No management Left Footwear Regular Shoe Regular Shoe Right Footwear Regular Shoe Regular Shoe Pain Scale: 0-10 Numeric Is Patient Pain Free? Yes Yes Lower Extremity Assessment/ Foot Assessment/ Toe Nail Assessment Right -Claudication Assessment Rest Pain -Polpliteal Pulses Palpable No -Posterior Tibial Palpable No -Dorsalis Pedis Palpable Yes -Dorsalis Pedis Doppler Monophasic -Extremity Color Normal -Hair Growth on Legs No -Hair Growth on Toes No -Temperature of Extremity Warm -Capillary Refill Less than 3 Seconds -Dependent Rubor No -Blanched when Elevated No -Lipodermatosclerosis No -Other Deformity No -Prior Foot Ulcer No -Charcot Joint No -Prior Amputation No -Thick Yes -Discolored Yes -Deformed No -Improper Length & Hygeine No Neuropathy Assessment Feet - Top Side and Bottom <Entered> (a) Communication Assessment Preferred language Indonesian Agriculture Research Director Required No Able to Read Yes Able to Write Yes Right Hearing Abillity Normal Left Hearing Abillity Normal Visual Assistive Devices Glasses Teaching Assessment Preferences Verbal,Written, Demonstration Barriers to Learning None Readiness To Learn Excellent Willingness to Engage in Self Management High Activies Readiness to Engage in Self Management High Activities Anxiety Level Calm Cooperation Cooperative Perception Coherent Interest in Health Problem Asks Questions Does Patient Smoke tobacco or other No substances Functional Assessment Recent Decline in Ability to Perform Denies Any Declines Assistive Device With Patient No Culture/Yarsanism/Nursing Assoc Cultural/Yarsanism Needs that may affect No Treatment Plan Would you allow our hospital operator weapon locating radar to No meet you for the purpose of spiritual/ emotional support? Nursing Assoc to contact place of judaism No Teaching: Wound Center Admission to -Person Taught Patient -Teaching Method Discussion -Response to teaching Verbalize understanding (a) 1 - sensation is present 2 - sensation is present on dorsum WC - Nurse 1 - General Ulcer Measurement Start: 12/23/23 14:11 Freq: Status: Active Protocol: Activity Type Activity Date Activity User E-sign Co-sign Detail Recorded Client Recorded Date Recorded By Document 12/23/23 14:12 Desktop 12/23/23 14:33 Document 12/30/23 15:42 Desktop 12/30/23 15:49 12/23/23 12/30/23 14:12 15:42 Wound Center Nurse 1 #1 Right lateral lower leg -Current Size (cm) - Length 1.5 1.7 -Current Size (cm) - Width 1.5 1.7 -Current Size (cm) - Depth 0.1 0.1 -Total Square Cm 2.25 2.89 -Date of Last Picture (Recall this 12/23/23 field) -Photo Taken Yes -Epithelialization None Present -Tunneling No -Undermining/Tunneling No -Circular Undermining No -Exudate Amt None Present Small -Exudate Type Serosanguineous -Wound Margin Distinct, Distinct, Outline Outline Attached Attached -Granulation Amt Small (1-33%) -Granulation Quality Red -Slough/Fibrin Yes -Necrosis Amt Large (67-100%) Large (67-100%) -Necrotic Tissue Type Adherent Slough Adherent Slough -Structure Exposed N/A -Texture (Goldie-wound Skin Appearance) Assessed Assessed -Moisture (Goldie-wound Skin Appearance) Assessed Assessed -Color (Goldie-wound Skin Appearance) Assessed Assessed -Temperature (Goldie-wound Skin No Abnormality Appearance) (Pt Warm) -Ulcer Cleansing Rinsed/ Rinsed/ Irrigated with Irrigated with Saline Saline -Foul Odor after Cleansing No No -Anesthetic Used 5% Lidocaine 5% Lidocaine Gel Gel Right Calf (cm) 45.3 44 Right Ankle (cm) 33.3 22.5 WC - Nurse 2 - General Ulcer CM Notes Start: 12/23/23 14:11 Freq: Status: Active Protocol: Activity Type Activity Date Activity User E-sign Co-sign Detail Recorded Client Recorded Date Recorded By Document 12/23/23 14:58 Laptop 12/23/23 15:07 Document 12/30/23 16:03 Laptop 12/30/23 16:07 JF 12/23/23 12/30/23 14:58 16:03 Wound Center Nurse 2 #1 Right lateral lower leg -Time 15:03 16:04 -Correct Patient Yes Yes -Correct Side, Site, Position Yes Yes -Correct Procedure Yes Yes -Procedure Performed Yes Yes -Type of Procedure Debridement Debridement -Clinical Debridement Subcutaneous Subcutaneous -Tissue Removed Subcutaneous Subcutaneous -Post Debridement (cm) - Length 1.5 1.8 -Post Debridement (cm) - Width 1.7 2.2 -Post Debridement (cm) - Depth 0.1 0.1 -Total Square (Post) (cm) 2.55 3.96 -Area of Debridement (cm) - Length 1.5 1.8 -Area of Debridement (cm) - Width 1.7 2.2 -Total Square (Area) (cm) 2.55 3.96 -Tunneling No No -Undermining/Tunneling No No -Circular Undermining No No -Wound/Ulcer Outcome Not Healed Not Healed -Ulcer Cleansing Rinsed/ Rinsed/ Irrigated with Irrigated with Saline Saline -Foul Odor after Cleansing No No -Bioengineered Tissue No No -Bleeding Controlled with Pressure Pressure -Treatment Response Procedure Procedure Tolerated Well Tolerated Well -Offloading No No -Debridement - Subq, 1st 20sq cm Yes Yes Pain Scale: 0-10 Numeric Is Patient Pain Free? Yes Yes WC - Nurse 3 - General Ulcer D/C NN Start: 12/23/23 14:11 Freq: Status: Active Protocol: Activity Type Activity Date Activity User E-sign Co-sign Detail Recorded Client Recorded Date Recorded By Document 12/23/23 15:27 GM Desktop 12/23/23 15:28 12/23/23 15:27 Wound Care Center Nurse 3 #1 Right lateral lower leg -Ulcer Cleansing Not Cleansed -Foul Odor after Cleansing No -Primary Dressing Applied Promogran Alissa Matter -Primary Dressing Covered/Secured with Dry Gauze & Roll Gauze, Secured with Tape -Promogran Alissa Matter 1 Right -Tubular Bandage Single Layer -Size of Tubigrip Used Size E -Size E ($) 1 Pain Scale: 0-10 Numeric Is Patient Pain Free? Yes Teaching: Wound Center Compression and elevation -Person Taught Patient -Teaching Method Discussion -Response to teaching Verbalize understanding Dressing Your Wound -Person Taught Patient -Teaching Method Discussion, Demonstration -Response to teaching Verbalize understanding *Debridement -Person Taught Patient -Teaching Method Discussion -Response to teaching Verbalize understanding WC - Visit Discharge Discharge Condition Stable Ambulatory Status Ambulatory Transportation Private Auto Medication Reconcilliation completed & Yes provided to patient/care provider Clinical Summary of Care Provided Yes Assessment/Plan Assessment/Plan (1) Non-pressure chronic ulcer of other part of right lower leg with fat layer exposed: CODE(S): L97.812 - Non-pressure chronic ulcer of other part of right lower leg with fat layer exposed PLAN: Patient was examined and evaluated. All findings were discussed with the patient. All questions were answered to the patient's satisfaction. Excisional debridement down to and including subcutaneous tissue with a number 5 mm dermal curette to the level of the right lower extremity full-thickness ulceration. Predebridement measurement was 1.7 x 2.0 x 0.1 cm. Postdebridement measurement is 1.8 x 2.2 x 0.1 cm. Right lower extremities were cleaned and patted dry. The ulcers were dressed with Alissa, dry sterile dressing and single-layer Tubigrip. Patient's microbiology culture and sensitivities were negative. Patient will get vascular studies 01/01/2024. Will send in a prescription for Santyl to be applied nickel thick to the right lower extremity followed by moistened gauze and dry sterile dressing and single-layer Tubigrip. Follow-up at the wound care center with Dr. Guillen in 1 week. (2) Peripheral vascular disease: CODE(S): I73.9 - Peripheral vascular disease, unspecified (3) Right leg pain: CODE(S): M79.604 - Pain in right leg
== END 2023-12-31 23:59 | disposition home or self-care (01) ==
LOC: WC 13:56
PROVIDERS: PCP Internal Medicine; Referring Provider Internal Medicine; Visit Provider Podiatrist Foot & Ankle Surgery
DX: L97.812 Non-pressure chronic ulcer of other part of right lower leg with fat layer exposed (principal); I73.9 Peripheral vascular disease, unspecified; M19.90 Unspecified osteoarthritis, unspecified site; Z79.899 Other long term (current) drug therapy; Z96.652 Presence of left artificial knee joint
CPT/HCPCS: 11042; 87070; 87075; 87101; 87205; 99214; G0463

== ENCOUNTER 2024-01-20 15:45 | Outpatient (RCR) | payer OTHER, MEDICAID, SELFPAY ==
[2024-01-01 00:41] VITALS: BP 157/65; PULSE 89; RESP 18; TEMP 36.9; BMI 42.3
--- NOTE | 2024-01-01 08:55 | VDLE_ITS ---
Reason For Study: Right leg ulcer RIGHT LEFT CFV is compressible, spontaneous, phasic, CFV is compressible, spontaneous, phasic, competent and demonstrates normal competent, and demonstrates normal augmentation. augmentation. FV is compressible, spontaneous, phasic, FV is compressible, spontaneous, phasic, competent and demonstrates normal competent and demonstrates normal augmentation. augmentation. POP V is compressible, spontaneous, phasic, POP V is compressible, spontaneous, phasic, competent and demonstrates normal competent and demonstrates normal augmentation. augmentation. T/P Trunk is compressible. T/P Trunk is compressible. PTV is compressible. PTV is compressible. RT PerV is compressible. LT PerV is compressible. SFJ is competent and measures 0.75 x 0.55 cm. SFJ is competent and measures 0.68 x 0.74 cm. GSV proximal thigh measures 0.39 x 0.39 cm. GSV proximal thigh measures 0.31 x 0.27 cm. GSV above knee is competent. GSV above knee is competent. GSV at knee measures 0.18 x 0.22 cm. GSV at knee measures 0.20 x 0.24 cm. GSV below knee is INCOMPETENT for greater GSV below knee is INCOMPETENT for greater than 0.5 seconds. than 0.5 seconds. ASV mid thigh is INCOMPETENT for greater than SSV proximal calf is INCOMPETENT for greater 0.5 seconds and measures 0.25 x 0.25 cm. than 0.5 seconds and measures 0.20 x 0.22 cm. INCOMPETENT safety trainer is noted 15 cm above medial malleolus. SSV proximal calf is INCOMPETENT for greater than 0.5 seconds and measures 0.11 x 0.12 cm. Procedure This is a venous duplex using B-mode, color flow and spectral Doppler. Exam performed in department. A preliminary report was called and/or faxed to . VL/Venous Duplex US - Colt Extrem Interpretation Summary Deep veins of the lower extremities are bilaterally patent and compressible seg mentally. There is no evidence of deep vein thrombosis on either side. Valvular competence appears in tact within the proximal deep venous systems bilaterally. The great saphenous veins appear bila terally patent and compressible segmentally. Sapheno-femoral junctions are bilaterally competent . The right great saphenous vein appears competent above the knee. The right great saphenous vein appears incompetent below the knee. The left great saphenous vein appears competent above the knee. The left great saphenous vein appears incompetent below the knee. Small saphenous veins are pa tent and incompetent bilaterally. The accessory saphenous vein in the right mid-thigh is incompetent . An incompetent safety trainer vein is noted in the right calf, located 15 centimeters proximal to the right medial malleolus. Ordering Physician: Juan Guillen Referring Physician: Divya Alexandra M.D. Performed By: Laurie Freeman RVT
--- NOTE | 2024-01-01 08:57 | ART_ITS ---
Reason For Study: Right leg ulcer Procedure A bilateral lower extremity continuous wave Doppler with analog waveform analysis,segmental pressures,and ankle brachial indexes without exercise. Left Segmental Pressures Left brachial= 109mmHg. Left posterior tibial artery = 131mmHg. Left dorsalis pedis artery = 126mmHg. Left digit = 102 mmHg. The left dorsalis pedis waveforms are triphasic. The left posterior tibial artery waveforms are triphasic. Right Segmental Pressures Right brachial= 123mmHg. Right posterior tibial artery = 133mmHg. Right dorsalis pedis artery = 125mmHg. Right digit = 103 mmHg. The right dorsalis pedis waveforms are triphasic. The right posterior tibial artery waveforms are triphasic. Indices The right ankle brachial index by the dorsalis pedis is 1.02. The right ankle brachial index by the posterior tibial artery is 1.08. The right digital-brachial index is 0.84. The left ankle brachial index by the dorsalis pedis is 1.02. The left ankle brachial index by the posterior tibial artery is 1.07. The left digital-brachial index is 0.83. VL/Lower Ext Art Exam w/o Exercis Interpretation Summary Triphasic Doppler waveforms are noted at ankle level bilaterally. Pulse-volume recordings appear diminished at digital level bilaterally, but satisfactory at calf and ankle lev els bilaterally. Resting ankle-brachial indices are normal bilaterally. Digital-brachial indices are normal bilaterally. There is no evidence of significant arterial occlusive disease in the lower ext remities bilaterally. Ordering Physician: Juan Guillen Referring Physician: Divya Alexandra M.D. Performed By: Laurie Freeman RVT
--- NOTE | 2024-01-01 10:10 | RAD_ITS ---
STUDY: X-RAY - RIGHT TIBIA AND FIBULA REASON FOR EXAM: Female, 63 years old. RIGHT LEG ULCER TECHNIQUE: 2 view(s) of the tibia and fibula were obtained. COMPARISON: None. FINDINGS: Normal visualized tibia. Normal visualized fibula. There is no demonstrated destructive osseous lesion. The soft tissue structures are unremarkable. No soft tissue gas seen. RAD/Tibia & Fibula 2 Views IMPRESSION: Normal x-ray examination of the tibia and fibula. Electronically Signed: Mir Rocha MD at 18:53 EST ,
[2024-01-06 15:51] VITALS: BP 147/90; PULSE 101; RESP 18; TEMP 35.8; BMI 42.3
--- NOTE | 2024-01-06 16:45 | PN.PCM_ITS ---
History of Present Illness Date of Service: 01/06/24 Chief Complaint: Right leg ulceration History of Wound: Chronic wound since August 2023 Subjective Subjective Mrs. Gant is a 63-year-old female resenting to wound care center for follow- up and evaluation of full-thickness ulceration to the right leg. Patient has gotten her dressing supplies and is doing her home dressing changes daily. She also states that she got her x-ray, and vascular studies. She denies any drainage to the wound. She states that there is no evidence of redness or sign of infection. She denies any pain right lower extremity. She denies trauma. Denies constitutional symptoms. No other pedal complaints at this time. Objective Data Objective Data Vital Signs: Vital Signs Temp Pulse Resp BP O2 Del Method 96.5 F L 101 H 18 147/90 H Room Air 01/06/24 15:51 01/06/24 15:51 01/06/24 15:51 01/06/24 15:51 01/06/24 15:51 Oxygen Delivery Method Room Air Weight: 122.47 kg Body Mass Index (BMI) 42.3 Physical Exam Narrative Vascular: DP and PT pulses are lightly palpable. CFT is brisk. Skin temperature great is warm to warm from proximal ankle to distal digits bilateral. No focal increase noted. Evidence of varicosities appreciated to the right lower extremity. Neurological: Light touch and epicritic sensation is intact. Dermatological: Full-thickness ulceration to the lateral aspect of the right lower extremity measuring 1.8 x 1.9 x 0.1 cm. Wound base is fibrogranular nature. No evidence of erythema or proximal streaking. No drainage. No probe to bone. No sign of infection. Evidence of varicosities appreciated right lower extremity. Excisional debridement down to and including subcutaneous tissue with a number 5 mm dermal curette to the level of the right lower extremity full-thickness ulceration. Predebridement measurement was 1.7 x 1.8 x 0.1 cm. Postdebridement measurement is 1.8 x 1.9 x 0.1 cm. Musculoskeletal: Mild pain to palpation to the full-thickness ulceration to right leg. No pain with calf compression. Debridement Note Debridement Note Debridement Free Text: Excisional debridement down to and including subcutaneous tissue with a number 5 mm dermal curette to the level of the right lower extremity full-thickness ulceration. Predebridement measurement was 1.7 x 1.8 x 0.1 cm. Postdebridement measurement is 1.8 x 1.9 x 0.1 cm. Post-Debridement Measurements and Additional Note: Post-Debridement Measurements/Treatment WC - Nurse 1 - General Ulcer Assessment Start: 01/06/24 15:51 Freq: Status: Active Protocol: MELE Activity Type Activity Date Activity User E-sign Co-sign Detail Recorded Client Recorded Date Recorded By Document 01/06/24 15:51 [employer]2 [employer] 01/06/24 15:56 KW 01/06/24 15:51 WC - Today's Visit Information Type of service Follow-up Visit (Physician/ACCOUNT SERVICES COORDINATOR ) Arrival Mode Cane Patient Identification Verified (Name & Yes ) Height and Weight Body Mass Index (BMI) 42.3 BMI Classification Obese Vital Signs Temperature (97.8 F-99.1 F) 96.5 F L Temperature Source Temporal Pulse Rate (60-100) 101 H Pulse Location Monitor Respiratory Rate (12-18) 18 Respiratory rate source Observation Oxygen Delivery Method Room Air Blood Pressure (90/60-120/80) 147/90 H Blood Pressure Mean (mm Hg) 109 Source Monitor Position Semi-Fowlers Blood Pressure Location Left Forearm History Since Last Visit- (Skip if this is Patient's initial visit) Have you changed medications since your No last visit? Any new allergies or adverse reactions No Had a fall/change in ADL's that may No increase risk of falls Signs or symptoms of abuse and/or No neglect since last visit Have you been in the hospital since your No last visit? Has dressing in place as prescribed Yes Has compression in place as prescribed Yes Has offloadiing in place as prescribed N/A Experienced any changes in pain level or No management Left Footwear Regular Shoe Right Footwear Regular Shoe Pain Scale: 0-10 Numeric Is Patient Pain Free? Yes - Nurse 1 - General Ulcer Measurement Start: 01/06/24 15:51 Freq: Status: Active Protocol: Activity Type Activity Date Activity User E-sign Co-sign Detail Recorded Client Recorded Date Recorded By Document 01/06/24 15:51 KW [employer] 01/06/24 15:56 KW 01/06/24 15:51 Wound Center Nurse 1 #1 Right lateral lower leg -Current Size (cm) - Length 1.4 -Current Size (cm) - Width 2 -Current Size (cm) - Depth 0.1 -Total Square Cm 2.8 -Exudate Amt Small -Exudate Type Serosanguineous -Wound Margin Distinct, Outline Attached -Granulation Amt Small (1-33%) -Granulation Quality [place] -Necrosis Amt Large (67-100%) -Necrotic Tissue Type Adherent Slough -Texture (Goldie-wound Skin Appearance) Assessed -Moisture (Goldie-wound Skin Appearance) Assessed -Color (Goldie-wound Skin Appearance) Assessed -Ulcer Cleansing Rinsed/ Irrigated with Saline -Foul Odor after Cleansing No -Anesthetic Used 5% Lidocaine Gel Right Calf (cm) 43 Right Ankle (cm) 22.5 WC - Nurse 2 - General Ulcer CM Notes Start: 01/06/24 15:51 Freq: Status: Active Protocol: Activity Type Activity Date Activity User E-sign Co-sign Detail Recorded Client Recorded Date Recorded By Document 01/06/24 16:01 Desktop 01/06/24 16:08 01/06/24 16:01 Wound Center Nurse 2 #1 Right lateral lower leg -Time 16:07 -Correct Patient Yes -Correct Side, Site, Position Yes -Correct Procedure Yes -Procedure Performed Yes -Type of Procedure Debridement -Clinical Debridement Subcutaneous -Tissue Removed Subcutaneous -Post Debridement (cm) - Length 1.8 -Post Debridement (cm) - Width 1.9 -Post Debridement (cm) - Depth 0.1 -Total Square (Post) (cm) 3.42 -Area of Debridement (cm) - Length 1.8 -Area of Debridement (cm) - Width 1.9 -Total Square (Area) (cm) 3.42 -Tunneling No -Undermining/Tunneling No -Circular Undermining No -Wound/Ulcer Outcome Not Healed -Ulcer Cleansing Rinsed/ Irrigated with Saline -Foul Odor after Cleansing No -Bioengineered Tissue No -Bleeding Controlled with Pressure -Treatment Response Procedure Tolerated Well -Offloading No -Debridement - Subq, 1st 20sq cm Yes -Wound Comment(s) Primatrix sample applied [id number] lot number 11/01/2024 exp date Pain Scale: 0-10 Numeric Is Patient Pain Free? Yes - Nurse 3 - General Ulcer D/C NN Start: 01/06/24 15:51 Freq: Status: Active Protocol: Activity Type Activity Date Activity User E-sign Co-sign Detail Recorded Client Recorded Date Recorded By Document 01/06/24 16:12 KW Desktop 01/06/24 16:13 KW 01/06/24 16:12 Wound Care Center Nurse 3 #1 Right lateral lower leg -Primary Dressing Applied Optilok 8x12 -Other Dressing PRIMATRIX -Optilok 8x12 1 Right -Tubular Bandage Double Layer -Size of Tubigrip Used Size E -Size E ($) 1 Treatment Response Procedure Tolerated Well Pain Scale: 0-10 Numeric Is Patient Pain Free? 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 All findings were discussed with the patient. All questions were answered to the patient's satisfaction. Excisional debridement down to and including subcutaneous tissue with a number 5 mm dermal curette to the level of the right lower extremity full-thickness ulce ration. Predebridement measurement was 1.7 x 1.8 x 0.1 cm. Postdebridement measurement is 1.8 x 1.9 x 0.1 cm. The patient's right leg ulceration was dressed with PriMatrix a 2 x 2 centimeter disc followed by bolster dressing and a double layer Tubigrip stocking. The patient's radiographs are unremarkable at this time and have no concern for underlying bone infection or pathology. The patient's arterial studies are unremarkable at this time. 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 If the patient is delayed in healing by mid January we will make referral over to vascular surgery for consultation and possible intervention. The patient's left lower extremity venous study was unremarkable. Follow-up at the wound care center with Dr. Guillen in 1 week. (2) Other specified peripheral vascular diseases: CODE(S): I73.89 - Other specified peripheral vascular diseases
[2024-01-13 15:44] VITALS: BP 162/77; PULSE 96; RESP 18; TEMP 36.5; BMI 42.3
--- NOTE | 2024-01-13 16:40 | PN.PCM_ITS ---
History of Present Illness Date of Service: 01/13/24 Chief Complaint: Right leg ulceration History of Wound: Chronic wound since August 2023 Subjective Subjective Mrs. Gant is a 63-year-old female resenting to wound care center for follow- up and evaluation of full-thickness ulceration to the right leg. Patient has gotten her dressing supplies and is doing her home dressing changes daily. She also states that she got her x-ray, and vascular studies. She denies any drainage to the wound. She states that there is no evidence of redness or sign of infection. She denies any pain right lower extremity. She denies trauma. Denies constitutional symptoms. No other pedal complaints at this time. Objective Data Objective Data Vital Signs: Vital Signs Temp Pulse Resp BP O2 Del Method 97.7 F L 96 18 162/77 H Room Air 01/13/24 15:44 01/13/24 15:44 01/13/24 15:44 01/13/24 15:44 01/13/24 15:44 Oxygen Delivery Method Room Air Weight: 122.47 kg Body Mass Index (BMI) 42.3 Physical Exam Narrative Vascular: DP and PT pulses are lightly palpable. CFT is brisk. Skin temperature great is warm to warm from proximal ankle to distal digits bilateral. No focal increase noted. Evidence of varicosities appreciated to the right lower extremity. Neurological: Light touch and epicritic sensation is intact. Dermatological: Full-thickness ulceration to the lateral aspect of the right lower extremity measuring 1.9 x 2.4 x 0.1 cm. Wound base is fibrogranular nature. No evidence of erythema or proximal streaking. No drainage. No probe to bone. No sign of infection. Evidence of varicosities appreciated right lower extremity. Excisional debridement down to and including subcutaneous tissue with a number 5 mm dermal curette to the level of the right lower extremity full-thickness ulceration. Predebridement measurement was 1.8 x 2.2 x 0.1 cm. Postdebridement measurement is 1.9 x 2.4 x 0.1 cm. Musculoskeletal: Mild pain to palpation to the full-thickness ulceration to right leg. No pain with calf compression. Debridement Note Debridement Note Debridement Free Text: Excisional debridement down to and including subcutaneous tissue with a number 5 mm dermal curette to the level of the right lower extremity full-thickness ulceration. Predebridement measurement was 1.8 x 2.2 x 0.1 cm. Postdebridement measurement is 1.9 x 2.4 x 0.1 cm. Post-Debridement Measurements and Additional Note: Post-Debridement Measurements/Treatment WC - Nurse 1 - General Ulcer Assessment Start: 01/06/24 15:51 Freq: Status: Active Protocol: [email or web address] Activity Type Activity Date Activity User E-sign Co-sign Detail Recorded Client Recorded Date Recorded By Document 01/06/24 15:51 KW Desktop 01/06/24 15:56 KW Document 01/13/24 15:44 KW Desktop 01/13/24 15:53 KW 01/06/24 01/13/24 15:51 15:44 WC - Today's Visit Information Type of service Follow-up Visit Follow-up Visit (Physician/SENIOR WINDOWS SYSTEMS ENGINEER (Physician/SENIOR WINDOWS SYSTEMS ENGINEER ) ) Arrival Mode Cane Ambulatory Patient Identification Verified (Name & Yes Yes ) Height and Weight Body Mass Index (BMI) 42.3 42.3 BMI Classification Obese Obese Vital Signs Temperature (97.8 F-99.1 F) 96.5 F L 97.7 F L Temperature Source Temporal Temporal Pulse Rate (60-100) 101 H 96 Pulse Location Monitor Monitor Respiratory Rate (12-18) 18 18 Respiratory rate source Observation Observation Oxygen Delivery Method Room Air Room Air Blood Pressure (90/60-120/80) 147/90 H 162/77 H Blood Pressure Mean (mm Hg) 109 105 Source Monitor Monitor Position Semi-Fowlers Semi-Fowlers Blood Pressure Location Left Forearm Left Arm History Since Last Visit- (Skip if this is Patient's initial visit) Have you changed medications since your No No last visit? Any new allergies or adverse reactions No No Had a fall/change in ADL's that may No No increase risk of falls Signs or symptoms of abuse and/or No No neglect since last visit Have you been in the hospital since your No No last visit? Has dressing in place as prescribed Yes Yes Has compression in place as prescribed Yes Yes Has offloadiing in place as prescribed N/A N/A Experienced any changes in pain level or No No management Left Footwear Regular Shoe Regular Shoe Right Footwear Regular Shoe Regular Shoe Pain Scale: 0-10 Numeric Is Patient Pain Free? Yes Yes - Nurse 1 - General Ulcer Measurement Start: 01/06/24 15:51 Freq: Status: Active Protocol: Activity Type Activity Date Activity User E-sign Co-sign Detail Recorded Client Recorded Date Recorded By Document 01/06/24 15:51 KW Desktop 01/06/24 15:56 KW Document 01/13/24 15:44 KW Desktop 01/13/24 15:53 KW 01/06/24 01/13/24 15:51 15:44 Wound Center Nurse 1 #1 Right lateral lower leg -Current Size (cm) - Length 1.4 1.8 -Current Size (cm) - Width 2 2 -Current Size (cm) - Depth 0.1 0.1 -Total Square Cm 2.8 3.6 -Exudate Amt Small Small -Exudate Type Serosanguineous Serosanguineous -Wound Margin Distinct, Distinct, Outline Outline Attached Attached -Granulation Amt Small (1-33%) Small (1-33%) -Granulation Quality [place] Red -Necrosis Amt Large (67-100%) Large (67-100%) -Necrotic Tissue Type Adherent Slough Adherent Slough -Texture (Goldie-wound Skin Appearance) Assessed Assessed -Moisture (Goldie-wound Skin Appearance) Assessed Assessed -Color (Goldie-wound Skin Appearance) Assessed Assessed -Temperature (Goldie-wound Skin No Abnormality Appearance) (Pt Warm) -Tenderness on Palpation (Goldie-wound No Skin Appearance) -Ulcer Cleansing Rinsed/ Rinsed/ Irrigated with Irrigated with Saline Saline -Foul Odor after Cleansing No No -Anesthetic Used 5% Lidocaine 5% Lidocaine Gel Gel Right Calf (cm) 43 42 Right Ankle (cm) 22.5 23 WC - Nurse 2 - General Ulcer CM Notes Start: 01/06/24 15:51 Freq: Status: Active Protocol: Activity Type Activity Date Activity User E-sign Co-sign Detail Recorded Client Recorded Date Recorded By Document 01/06/24 16:01 Desktop 01/06/24 16:08 Document 01/13/24 16:08 Laptop 01/13/24 16:17 01/06/24 01/13/24 16:01 16:08 Wound Center Nurse 2 #1 Right lateral lower leg -Time 16:07 16:09 -Correct Patient Yes Yes -Correct Side, Site, Position Yes Yes -Correct Procedure Yes Yes -Procedure Performed Yes Yes -Type of Procedure Debridement Debridement -Clinical Debridement Subcutaneous Subcutaneous -Tissue Removed Subcutaneous Subcutaneous -Post Debridement (cm) - Length 1.8 1.9 -Post Debridement (cm) - Width 1.9 2.4 -Post Debridement (cm) - Depth 0.1 0.1 -Total Square (Post) (cm) 3.42 4.56 -Area of Debridement (cm) - Length 1.8 1.9 -Area of Debridement (cm) - Width 1.9 2.4 -Total Square (Area) (cm) 3.42 4.56 -Tunneling No No -Undermining/Tunneling No No -Circular Undermining No No -Wound/Ulcer Outcome Not Healed Not Healed -Ulcer Cleansing Rinsed/ Rinsed/ Irrigated with Irrigated with Saline Saline -Foul Odor after Cleansing No No -Bioengineered Tissue No No -Bleeding Controlled with Pressure Pressure -Treatment Response Procedure Procedure Tolerated Well Tolerated Well -Offloading No No -Debridement - Subq, 1st 20sq cm Yes Yes -Wound Comment(s) Primatrix sample applied [id number] lot number 11/01/2024 exp date Pain Scale: 0-10 Numeric Is Patient Pain Free? Yes Yes - Nurse 3 - General Ulcer D/C NN Start: 01/06/24 15:51 Freq: Status: Active Protocol: Activity Type Activity Date Activity User E-sign Co-sign Detail Recorded Client Recorded Date Recorded By Document 01/06/24 16:12 KW Desktop 01/06/24 16:13 KW Document 01/13/24 16:20 KW Desktop 01/13/24 16:20 KW 01/06/24 01/13/24 16:12 16:20 Wound Care Center Nurse 3 #1 Right lateral lower leg -Primary Dressing Applied Optilok 8x12 Aquacel AG 4x4 -Other Dressing PRIMATRIX -Primary Dressing Covered/Secured with Dry Gauze & Roll Gauze, Secured with Tape -Aquacel AG 4x4 1 -Optilok 8x12 1 Right -Tubular Bandage Double Layer Double Layer -Size of Tubigrip Used Size E Size E -Size E ($) 1 2 Treatment Response Procedure Tolerated Well Pain Scale: 0-10 Numeric Is Patient Pain Free? Yes Yes - Visit Discharge Discharge Condition Stable Stable Ambulatory Status Ambulatory Ambulatory Transportation Private Auto Private Auto Medication Reconcilliation completed & No provided to patient/care provider Clinical Summary of Care Provided Yes Assessment/Plan Assessment/Plan (1) Non-pressure chronic ulcer of other part of right lower leg with fat layer exposed: CODE(S): L97.812 - Non-pressure chronic ulcer of other part of right lower leg with fat layer exposed PLAN: Patient was examined and evaluated. All findings were discussed with the patient. All questions were answered to the patient's satisfaction. Excisional debridement down to and including subcutaneous tissue with a number 5 mm dermal curette to the level of the right lower extremity full-thickness ulceration. Predebridement measurement was 1.8 x 2.2 x 0.1 cm. Postdebridement measurement is 1.9 x 2.4 x 0.1 cm. Ulceration was dressed with silver alginate AG, dry sterile dressing and a double layer Tubigrip. We will attempt to get Santyl for the patient as this will be the gold standard for treating her fibrotic wound. If you are unsuccessful to get this medication to the patient's pharmacy I recommend the patient paying [id number] which she was understanding of. Follow-up at the wound care center with Dr. Guillen in 1 week. (2) Other specified peripheral vascular diseases: CODE(S): I73.89 - Other specified peripheral vascular diseases
[2024-01-20 15:41] VITALS: BMI 42.3
--- NOTE | 2024-01-20 21:23 | PN.PCM_ITS ---
History of Present Illness Date of Service: 01/20/24 Chief Complaint: Right leg ulceration History of Wound: Chronic wound since August 2023 Subjective Subjective Mrs. Gant is a 63-year-old female resenting to wound care center for follow- up and evaluation of full-thickness ulceration to the right leg. Patient has gotten her dressing supplies and is doing her home dressing changes daily. She also states that she got her Santyl which was only $50 with the coupon. She has been doing dressing changes with the product and has noticed improvement to her ulceration to the right leg. She denies any pain right lower extremity. She denies trauma. Denies constitutional symptoms. No other pedal complaints at this time. Objective Data Objective Data Vital Signs: Vital Signs Temp Pulse Resp BP O2 Del Method 97.7 F L 96 18 162/77 H Room Air 01/13/24 15:44 01/13/24 15:44 01/13/24 15:44 01/13/24 15:44 01/13/24 15:44 Oxygen Delivery Method Room Air Weight: 122.47 kg Body Mass Index (BMI) 42.3 Physical Exam Narrative Vascular: DP and PT pulses are lightly palpable. CFT is brisk. Skin temperature great is warm to warm from proximal ankle to distal digits bilateral. No focal increase noted. Evidence of varicosities appreciated to the right lower extremity. Neurological: Light touch and epicritic sensation is intact. Dermatological: Full-thickness ulceration to the lateral aspect of the right lo wer extremity measuring 1.8 x 2.3 x 0.1 cm. Wound base is fibrogranular nature and improving. No evidence of erythema or proximal streaking. No drainage. No probe to bone. No sign of infection. Evidence of varicosities appreciated right lower extremity. Excisional debridement down to and including subcutaneous tissue with a number 5 mm dermal curette to the level of the right lower extremity full-thickness ulceration. Predebridement measurement was 1.7 x 2.2 x 0.1 cm. Postdebridement measurement is 1.8 x 2.3 x 0.1 cm. Musculoskeletal: Mild pain to palpation to the full-thickness ulceration to right leg. No pain with calf compression. Debridement Note Debridement Note Post-Debridement Measurements and Additional Note: Post-Debridement Measurements/Treatment - Nurse 1 - General Ulcer Assessment Start: 01/06/24 15:51 Freq: Status: Active Protocol: [email or web address] Activity Type Activity Date Activity User E-sign Co-sign Detail Recorded Client Recorded Date Recorded By Document 01/06/24 15:51 KW Desktop 01/06/24 15:56 KW Document 01/13/24 15:44 KW Desktop 01/13/24 15:53 KW Document 01/20/24 15:41 KW Desktop 01/20/24 15:45 KW 01/06/24 01/13/24 01/20/24 15:51 15:44 15:41 - Today's Visit Information Type of service Follow-up Visit Follow-up Visit Follow-up Visit (Physician/[employer] (Physician/[employer]OKER (Physician/[employer]OK[employer] ) ) ) Arrival Mode Cane Ambulatory Ambulatory Patient Identification Verified (Name & Yes Yes Yes ) Height and Weight Body Mass Index (BMI) 42.3 42.3 42.3 BMI Classification Obese Obese Obese Vital Signs Temperature (97.8 F-99.1 F) 96.5 F L 97.7 F L Temperature Source Temporal Temporal Pulse Rate (60-100) 101 H 96 Pulse Location Monitor Monitor Respiratory Rate (12-18) 18 18 Respiratory rate source Observation Observation Oxygen Delivery Method Room Air Room Air Blood Pressure (90/60-120/80) 147/90 H 162/77 H Blood Pressure Mean (mm Hg) 109 105 Source Monitor Monitor Position Semi-Fowlers Semi-Fowlers Blood Pressure Location Left Forearm Left Arm History Since Last Visit- (Skip if this is Patient's initial visit) Have you changed medications since your No No No last visit? Any new allergies or adverse reactions No No No Had a fall/change in ADL's that may No No No increase risk of falls Signs or symptoms of abuse and/or No No No neglect since last visit Have you been in the hospital since your No No No last visit? Has dressing in place as prescribed Yes Yes Yes Has compression in place as prescribed Yes Yes Yes Has offloadiing in place as prescribed N/A N/A N/A Experienced any changes in pain level or No No No management Left Footwear Regular Shoe Regular Shoe Regular Shoe Right Footwear Regular Shoe Regular Shoe Regular Shoe Pain Scale: 0-10 Numeric Is Patient Pain Free? Yes Yes Yes - Nurse 1 - General Ulcer Measurement Start: 03/06/24 15:51 Freq: Status: Active Protocol: Activity Type Activity Date Activity User E-sign Co-sign Detail Recorded Client Recorded Date Recorded By Document 01/06/24 15:51 KW Desktop 01/06/24 15:56 KW Document 01/13/24 15:44 KW Desktop 01/13/24 15:53 KW Document 01/20/24 15:41 KW Desktop 01/20/24 15:45 KW 01/06/24 01/13/24 01/20/24 15:51 15:44 15:41 Wound Center Nurse 1 #1 Right lateral lower leg -Current Size (cm) - Length 1.4 1.8 2 -Current Size (cm) - Width 2 2 2.1 -Current Size (cm) - Depth 0.1 0.1 0.1 -Total Square Cm 2.8 3.6 4.2 -Exudate Amt Small Small -Exudate Type Serosanguineous Serosanguineous -Wound Margin Distinct, Distinct, Outline Outline Attached Attached -Granulation Amt Small (1-33%) Small (1-33%) Small (1-33%) -Granulation Quality [place] -Necrosis Amt Large (67-100%) Large (67-100%) Large (67-100%) -Necrotic Tissue Type Adherent Slough Adherent Slough Adherent Slough -Texture (Goldie-wound Skin Appearance) Assessed Assessed Assessed -Moisture (Goldie-wound Skin Appearance) Assessed Assessed Assessed -Color (Goldie-wound Skin Appearance) Assessed Assessed Assessed -Temperature (Goldie-wound Skin No Abnormality No Abnormality Appearance) (Pt Warm) (Pt Warm) -Tenderness on Palpation (Goldie-wound No Skin Appearance) -Ulcer Cleansing Rinsed/ Rinsed/ Rinsed/ Irrigated with Irrigated with Irrigated with Saline Saline Saline -Foul Odor after Cleansing No No No -Anesthetic Used 5% Lidocaine 5% Lidocaine 5% Lidocaine Gel Gel Gel Right Calf (cm) 43 42 42.8 Right Ankle (cm) 22.5 23 21.7 WC - Nurse 2 - General Ulcer CM Notes Start: 01/06/24 15:51 Freq: Status: Active Protocol: Activity Type Activity Date Activity User E-sign Co-sign Detail Recorded Client Recorded Date Recorded By Document 01/06/24 16:01 [facility] 01/06/24 16:08 Document 01/13/24 16:08 Laptop 01/13/24 16:17 Document 01/20/24 15:58 Laptop 01/20/24 16:00 01/06/24 01/13/24 01/20/24 16:01 16:08 15:58 Wound Center Nurse 2 #1 Right lateral lower leg -Time 16:07 16:09 15:58 -Correct Patient Yes Yes Yes -Correct Side, Site, Position Yes Yes Yes -Correct Procedure Yes Yes Yes -Procedure Performed Yes Yes Yes -Type of Procedure Debridement Debridement Debridement -Clinical Debridement Subcutaneous Subcutaneous Subcutaneous -Tissue Removed Subcutaneous Subcutaneous Subcutaneous -Post Debridement (cm) - Length 1.8 1.9 1.8 -Post Debridement (cm) - Width 1.9 2.4 2.3 -Post Debridement (cm) - Depth 0.1 0.1 0.1 -Total Square (Post) (cm) 3.42 4.56 4.14 -Area of Debridement (cm) - Length 1.8 1.9 1.8 -Area of Debridement (cm) - Width 1.9 2.4 2.3 -Total Square (Area) (cm) 3.42 4.56 4.14 -Tunneling No No No -Undermining/Tunneling No No No -Circular Undermining No No No -Wound/Ulcer Outcome Not Healed Not Healed Not Healed -Ulcer Cleansing Rinsed/ Rinsed/ Rinsed/ Irrigated with Irrigated with Irrigated with Saline Saline Saline -Foul Odor after Cleansing No No No -Bioengineered Tissue No No No -Bleeding Controlled with Pressure Pressure Pressure -Treatment Response Procedure Procedure Procedure Tolerated Well Tolerated Well Tolerated Well -Offloading No No No -Debridement - Subq, 1st 20sq cm Yes Yes Yes -Wound Comment(s) Primatrix sample applied [id number] lot number 11/01/2024 exp date Pain Scale: 0-10 Numeric Is Patient Pain Free? Yes Yes Yes WC - Nurse 3 - General Ulcer D/C NN Start: 01/06/24 15:51 Freq: Status: Active Protocol: Activity Type Activity Date Activity User E-sign Co-sign Detail Recorded Client Recorded Date Recorded By Document 01/06/24 16:12 KW Desktop 01/06/24 16:13 KW Document 01/13/24 16:20 KW Desktop 01/13/24 16:20 KW Document 01/20/24 16:12 [facility] Desktop 01/20/24 16:13 [facility] 01/06/24 01/13/24 01/20/24 16:12 16:20 16:12 Wound Care Center Nurse 3 #1 Right lateral lower leg -Ulcer Cleansing Rinsed/ Irrigated with Saline -Foul Odor after Cleansing No -Primary Dressing Applied Optilok 8x12 Aquacel AG 4x4 -Other Dressing PRIMATRIX hailee; moist gauze -Primary Dressing Covered/Secured with Dry Gauze & Dry Gauze & Roll Gauze, Roll Gauze, Secured with Secured with Tape Tape -Aquacel AG 4x4 1 -Optilok 8x12 1 Right -Tubular Bandage Double Layer Double Layer Double Layer -Size of Tubigrip Used Size E Size E Size D -Size D ($) 4 -Size E ($) 1 2 -Other sent extra Treatment Response Procedure Procedure Tolerated Well Tolerated Well Pain Scale: 0-10 Numeric Is Patient Pain Free? Yes Yes Yes WC - Visit Discharge Discharge Condition Stable Stable Stable Ambulatory Status Ambulatory Ambulatory Ambulatory Transportation Private Auto Private Auto Private Auto Medication Reconcilliation completed & No provided to patient/care provider Clinical Summary of Care Provided Yes Assessment/Plan Assessment/Plan (1) Non-pressure chronic ulcer of other part of right lower leg with fat layer exposed: CODE(S): L97.812 - Non-pressure chronic ulcer of other part of right lower leg with fat layer exposed PLAN: Patient was examined and evaluated. All findings were discussed with the patient. All questions were answered to the patient satisfaction. Excisional debridement down to and including subcutaneous tissue with a number 5 mm dermal curette to the level of the right lower extremity full-thickness ulceration. Predebridement measurement was 1.7 x 2.2 x 0.1 cm. Postdebridement measurement is 1.8 x 2.3 x 0.1 cm. Right lower extremity ulceration dressed with Santyl, moist soaking 4 x 4 dry sterile dressing and a Tubigrip. Patient will follow-up with Dr. Guillen in 2 weeks. Patient will follow-up with Dr. Guillen at the wound care center in 2 week. (2) Other specified peripheral vascular diseases: CODE(S): I73.89 - Other specified peripheral vascular diseases
== END 2024-01-31 23:59 | disposition home or self-care (01) ==
LOC: WC 15:45
PROVIDERS: PCP Internal Medicine; Referring Provider Internal Medicine; Visit Provider Podiatrist Foot & Ankle Surgery
DX: L97.812 Non-pressure chronic ulcer of other part of right lower leg with fat layer exposed (principal); I73.89 Other specified peripheral vascular diseases
CPT/HCPCS: 11042; 73590; 93923; 93970

== ENCOUNTER 2024-02-24 15:45 | Outpatient (RCR) | payer OTHER, MEDICAID, MEDICARE, SELFPAY ==
[2024-02-01 00:49] VITALS: BP 162/77; PULSE 96; RESP 18; TEMP 36.5; BMI 42.3
[2024-02-03 15:37] VITALS: BP 169/93; PULSE 94; RESP 18; TEMP 36.3; BMI 42.3
--- NOTE | 2024-02-03 16:10 | PN.PCM_ITS ---
History of Present Illness Date of Service: 02/03/24 Chief Complaint: Right leg ulceration History of Wound: Chronic wound since August 2023 Subjective Subjective Mrs Gant is a 63-year-old female presenting to clinic today for follow-up evaluation of full-thickness ulceration to right leg. She has been doing home dressing changes with Santyl moist gauze and dry sterile dressing with double layer Tubigrip. She states that she notices improvement with her ulceration. She denies any new trauma. Denies constitutional symptoms. Other pedal complaints at this time. Objective Data Objective Data Vital Signs: Vital Signs Temp Pulse Resp BP O2 Del Method 97.4 F L 94 18 169/93 H Room Air 02/03/24 15:37 02/03/24 15:37 02/03/24 15:37 02/03/24 15:37 02/03/24 15:37 Oxygen Delivery Method Room Air Weight: 122.47 kg Body Mass Index (BMI) 42.3 Physical Exam Narrative Vascular: DP and PT pulses are lightly palpable. CFT is brisk. Skin temperature great is warm to warm from proximal ankle to distal digits bi lateral. No focal increase noted. Evidence of varicosities appreciated to the right lower extremity. Neurological: Light touch and epicritic sensation is intact. Dermatological: Full-thickness ulceration to the lateral aspect of the right lower extremity measuring 1.5 x 1.9 x 0.1 cm. Wound base is fibrogranular nature and improving. No evidence of erythema or proximal streaking. No drainage. No probe to bone. No sign of infection. Evidence of varicosities appreciated right lower extremity. Excisional debridement down to and including subcutaneous tissue with a number 3 mm dermal curette to the level of the right lower extremity full-thickness ulceration. Predebridement measurement was 1.5 x 1.9 x 0.1 cm. Postdebridement measurement is 1.6 x 2.0 x 0.2 cm. Musculoskeletal: Mild pain to palpation to the full-thickness ulceration to right leg. No pain with calf compression. Debridement Note Debridement Note Debridement Free Text: Excisional debridement down to and including subcutaneous tissue with a number 3 mm dermal curette to the level of the right lower extremity full-thickness ulceration. Predebridement measurement was 1.5 x 1.9 x 0.1 cm. Postdebridement measurement is 1.6 x 2.0 x 0.2 cm. Post-Debridement Measurements and Additional Note: Post-Debridement Measurements/Treatment - Nurse 1 - General Ulcer Assessment Start: 02/03/24 15:37 Freq: Status: Active Protocol: MELE Activity Type Activity Date Activity User E-sign Co-sign Detail Recorded Client Recorded Date Recorded By Document 02/03/24 15:37 KW Desktop 02/03/24 15:46 KW 02/03/24 15:37 WC - Today's Visit Information Type of service Follow-up Visit (Physician/[employer] ) Arrival Mode Ambulatory Patient Identification Verified (Name & Yes ) Height and Weight Body Mass Index (BMI) 42.3 BMI Classification Obese Vital Signs Temperature (97.8 F-99.1 F) 97.4 F L Temperature Source Temporal Pulse Rate (60-100) 94 Pulse Location Monitor Respiratory Rate (12-18) 18 Respiratory rate source Observation Oxygen Delivery Method Room Air Blood Pressure (90/60-120/80) 169/93 H Blood Pressure Mean (mm Hg) 118 Source Monitor Position Semi-Fowlers Blood Pressure Location Left Arm History Since Last Visit- (Skip if this is Patient's initial visit) Have you changed medications since your No last visit? Any new allergies or adverse reactions No Had a fall/change in ADL's that may No increase risk of falls Signs or symptoms of abuse and/or No neglect since last visit Have you been in the hospital since your No last visit? Has dressing in place as prescribed Yes Has compression in place as prescribed Yes Has offloadiing in place as prescribed N/A Experienced any changes in pain level or No management Left Footwear Regular Shoe Right Footwear Regular Shoe Pain Scale: 0-10 Numeric Is Patient Pain Free? Yes - Nurse 1 - General Ulcer Measurement Start: 02/03/24 15:37 Freq: Status: Active Protocol: Activity Type Activity Date Activity User E-sign Co-sign Detail Recorded Client Recorded Date Recorded By Document 02/03/24 15:37 KW Desktop 02/03/24 15:46 KW 02/03/24 15:37 Wound Center Nurse 1 #1 Right lateral lower leg -Current Size (cm) - Length 1.8 -Current Size (cm) - Width 2 -Current Size (cm) - Depth 0.1 -Total Square Cm 3.6 -Date of Last Picture (Recall this 02/03/24 field) -Photo Taken Yes -Exudate Amt Medium -Exudate Type Serosanguineous -Wound Margin Distinct, Outline Attached -Granulation Amt Medium (34-66%) -Granulation Quality Red -Necrosis Amt Medium (34-66%) -Necrotic Tissue Type Adherent Slough -Texture (Goldie-wound Skin Appearance) Assessed -Moisture (Goldie-wound Skin Appearance) Assessed, Maceration -Color (Goldie-wound Skin Appearance) Assessed -Temperature (Goldie-wound Skin No Abnormality Appearance) (Pt Warm) -Tenderness on Palpation (Goldie-wound No Skin Appearance) -Ulcer Cleansing Rinsed/ Irrigated with Saline -Foul Odor after Cleansing No -Anesthetic Used 5% Lidocaine Gel Right Calf (cm) 44.3 Right Ankle (cm) 22 WC - Nurse 2 - General Ulcer CM Notes Start: 02/03/24 15:37 Freq: Status: Active Protocol: Activity Type Activity Date Activity User E-sign Co-sign Detail Recorded Client Recorded Date Recorded By Document 02/03/24 16:06 Laptop 02/03/24 16:09 02/03/24 16:06 Wound Center Nurse 2 #1 Right lateral lower leg -Time 16:06 -Correct Patient Yes -Correct Side, Site, Position Yes -Correct Procedure Yes -Procedure Performed Yes -Type of Procedure Debridement -Clinical Debridement Subcutaneous -Tissue Removed Subcutaneous -Post Debridement (cm) - Length 1.6 -Post Debridement (cm) - Width 2.0 -Post Debridement (cm) - Depth 0.2 -Total Square (Post) (cm) 3.20 -Area of Debridement (cm) - Length 1.6 -Area of Debridement (cm) - Width 2.0 -Total Square (Area) (cm) 3.20 -Tunneling No -Undermining/Tunneling No -Circular Undermining No -Wound/Ulcer Outcome Not Healed -Ulcer Cleansing Rinsed/ Irrigated with Saline -Foul Odor after Cleansing No -Bioengineered Tissue No -Bleeding Controlled with Pressure -Treatment Response Procedure Tolerated Well -Offloading No -Debridement - Subq, 1st 20sq cm Yes Pain Scale: 0-10 Numeric Is Patient Pain Free? Yes Assessment/Plan Assessment/Plan (1) Non-pressure chronic ulcer of other part of right lower leg with fat layer exposed: CODE(S): L97.812 - Non-pressure chronic ulcer of other part of right lower leg with fat layer exposed PLAN: Patient was examined and evaluated. All findings were discussed with the patient. All questions were answered to the patient's satisfaction. Excisional debridement down to and including subcutaneous tissue with a number 3 mm dermal curette to the level of the right lower extremity full-thickness ulceration. Predebridement measurement was 1.5 x 1.9 x 0.1 cm. Postdebridement measurement is 1.6 x 2.0 x 0.2 cm. Right lower extremities were cleaned and patted dry. Santyl nickel thick was applied to the full-thickness ulceration followed by moist gauze dry sterile dressing on double layer Tubigrip. Patient will continue home dressing changes as instructed. She showed understanding of this. Follow-up at the wound care center with Dr. Guillen in 1 week. (2) Other specified peripheral vascular diseases: CODE(S): I73.89 - Other specified peripheral vascular diseases
--- NOTE | 2024-02-05 12:29 | WC ---
4.3.24 RT LAT LE
[2024-02-17 15:50] VITALS: BP 163/78; PULSE 90; RESP 16; TEMP 37.6; BMI 42.3
--- NOTE | 2024-02-17 16:18 | PCM.WC.PN ---
History of Present Illness Date of Service: 02/17/24 Chief Complaint: Right leg ulceration History of Wound: Chronic wound since August 2023 Subjective Subjective Mrs Gant is a 63-year-old female presenting to clinic today for follow-up evaluation of full-thickness ulceration to right leg. She has been doing home dressing changes with Santyl moist gauze and dry sterile dressing with double layer Tubigrip. She states that she notices improvement with her ulceration. She denies any new trauma. Denies constitutional symptoms. Other pedal complaints at this time. Objective Data Objective Data Vital Signs: Vital Signs Temp Pulse Resp BP O2 Del Method 99.7 F H 90 16 163/78 H Room Air 02/17/24 15:50 02/17/24 15:50 02/17/24 15:50 02/17/24 15:50 02/17/24 15:50 Oxygen Delivery Method Room Air Weight: 122.47 kg Body Mass Index (BMI) 42.3 Physical Exam Narrative Vascular: DP and PT pulses are lightly palpable. CFT is brisk. Skin temperature great is warm to warm from proximal ankle to distal digits bilateral. No focal increase noted. Evidence of varicosities appreciated to the right lower extremity. Neurological: Light touch and epicritic sensation is intact. Dermatological: Full-thickness ulceration to the lateral aspect of the right lower extremity measuring 1.3 x 2.0 x 0.1 cm. Wound base is fibrogranular nature and improving. No evidence of erythema or proximal streaking. No drainage. No probe to bone. No sign of infection. Evidence of varicosities appreciated right lower extremity. Excisional debridement down to and including subcutaneous tissue with a number 3 mm dermal curette to the level of the right lower extremity full-thickness ulceration. Predebridement measurement was 1.2 x 1.9 x 0.1 cm. Postdebridement measurement is 1.3 x 2.0 x 0.1 cm. Musculoskeletal: Mild pain to palpation to the full-thickness ulceration to right leg. No pain with calf compression. Debridement Note Debridement Note Debridement Free Text: Excisional debridement down to and including subcutaneous tissue with a number 3 mm dermal curette to the level of the right lower extremity full-thickness ulceration. Predebridement measurement was 1.2 x 1.9 x 0.1 cm. Postdebridement measurement is 1.3 x 2.0 x 0.1 cm. Post-Debridement Measurements and Additional Note: Post-Debridement Measurements/Treatment WC - Nurse 1 - General Ulcer Assessment Start: 02/03/24 15:37 Freq: Status: Active Protocol: MELE Activity Type Activity Date Activity User E-sign Co-sign Detail Recorded Client Recorded Date Recorded By Document 02/03/24 15:37 KW Desktop 02/03/24 15:46 KW Document 02/17/24 15:50 CP Desktop 02/17/24 15:54 CP 02/03/24 02/17/24 15:37 15:50 WC - Today's Visit Information Type of service Follow-up Visit Follow-up Visit (Physician/CITY EDITOR (Physician/CITY EDITOR ) ) Arrival Mode Ambulatory Ambulatory Patient Identification Verified (Name & Yes Yes ) Patient Requires Transmission-Based No Precautions Safety Precautions NA Height and Weight Body Mass Index (BMI) 42.3 42.3 BMI Classification Obese Obese Vital Signs Temperature (97.8 F-99.1 F) 97.4 F L 99.7 F H Temperature Source Temporal Temporal Pulse Rate (60-100) 94 90 Pulse Location Monitor Monitor Respiratory Rate (12-18) 18 16 Respiratory rate source Observation Observation Oxygen Delivery Method Room Air Room Air Blood Pressure (90/60-120/80) 169/93 H 163/78 H Blood Pressure Mean (mm Hg) 118 106 Source Monitor Monitor Position Semi-Fowlers Semi-Fowlers Blood Pressure Location Left Arm Left Arm History Since Last Visit- (Skip if this is Patient's initial visit) Have you changed medications since your No No last visit? Any new allergies or adverse reactions No No Had a fall/change in ADL's that may No No increase risk of falls Signs or symptoms of abuse and/or No No neglect since last visit Have you been in the hospital since your No No last visit? Has dressing in place as prescribed Yes Yes Has compression in place as prescribed Yes Yes Has offloadiing in place as prescribed N/A No Experienced any changes in pain level or No No management Left Footwear Regular Shoe Right Footwear Regular Shoe Pain Scale: 0-10 Numeric Is Patient Pain Free? Yes Yes DEMETRIUS - Nurse 1 - General Ulcer Measurement Start: 02/03/24 15:37 Freq: Status: Active Protocol: Activity Type Activity Date Activity User E-sign Co-sign Detail Recorded Client Recorded Date Recorded By Document 02/03/24 15:37 KW Desktop 02/03/24 15:46 KW Document 02/17/24 15:50 CP Desktop 02/17/24 15:54 CP 02/03/24 02/17/24 15:37 15:50 Wound Center Nurse 1 #1 Right lateral lower leg -Current Size (cm) - Length 1.8 1.4 -Current Size (cm) - Width 2 1.7 -Current Size (cm) - Depth 0.1 0.1 -Total Square Cm 3.6 2.38 -Date of Last Picture (Recall this 02/03/24 field) -Photo Taken Yes -Epithelialization None Present -Tunneling No -Undermining/Tunneling No -Exudate Amt Medium Small -Exudate Type Serosanguineous Sanguineous -Wound Margin Distinct, Flat & Intact Outline Attached -Granulation Amt Medium (34-66%) Large (67-100%) -Granulation Quality Red Red -Slough/Fibrin Yes -Necrosis Amt Medium (34-66%) Small (1-33%) -Necrotic Tissue Type Adherent Slough Adherent Slough -Structure Exposed N/A -Texture (Goldie-wound Skin Appearance) Assessed No Abnormality -Moisture (Goldie-wound Skin Appearance) Assessed, No Abnormality Maceration -Color (Goldie-wound Skin Appearance) Assessed No Abnormality -Temperature (Goldie-wound Skin No Abnormality No Abnormality Appearance) (Pt Warm) (Pt Warm) -Tenderness on Palpation (Goldie-wound No Yes Skin Appearance) -Ulcer Cleansing Rinsed/ Rinsed/ Irrigated with Irrigated with Saline Saline -Foul Odor after Cleansing No No -Anesthetic Used 5% Lidocaine 5% Lidocaine Gel Gel Right Calf (cm) 44.3 41.5 Right Ankle (cm) 22 23.4 WC - Nurse 2 - General Ulcer CM Notes Start: 02/03/24 15:37 Freq: Status: Active Protocol: Activity Type Activity Date Activity User E-sign Co-sign Detail Recorded Client Recorded Date Recorded By Document 02/03/24 16:06 Laptop 02/03/24 16:09 Document 02/17/24 16:02 Laptop 02/17/24 16:07 02/03/24 02/17/24 16:06 16:02 Wound Center Nurse 2 #1 Right lateral lower leg -Time 16:06 16:02 -Correct Patient Yes Yes -Correct Side, Site, Position Yes Yes -Correct Procedure Yes Yes -Procedure Performed Yes Yes -Type of Procedure Debridement Debridement -Clinical Debridement Subcutaneous Subcutaneous -Tissue Removed Subcutaneous Subcutaneous -Post Debridement (cm) - Length 1.6 1.3 -Post Debridement (cm) - Width 2.0 2 -Post Debridement (cm) - Depth 0.2 0.1 -Total Square (Post) (cm) 3.20 2.6 -Area of Debridement (cm) - Length 1.6 1.3 -Area of Debridement (cm) - Width 2.0 2.0 -Total Square (Area) (cm) 3.20 2.60 -Tunneling No No -Undermining/Tunneling No No -Circular Undermining No No -Wound/Ulcer Outcome Not Healed Not Healed -Ulcer Cleansing Rinsed/ Rinsed/ Irrigated with Irrigated with Saline Saline -Foul Odor after Cleansing No No -Bioengineered Tissue No No -Bleeding Controlled with Pressure Pressure -Treatment Response Procedure Procedure Tolerated Well Tolerated Well -Offloading No No -Debridement - Subq, 1st 20sq cm Yes Yes Pain Scale: 0-10 Numeric Is Patient Pain Free? Yes Yes - Nurse 3 - General Ulcer D/C NN Start: 02/03/24 15:37 Freq: Status: Active Protocol: Activity Type Activity Date Activity User E-sign Co-sign Detail Recorded Client Recorded Date Recorded By Document 02/03/24 16:12 KW Desktop 02/03/24 16:14 KW 02/03/24 16:12 Wound Care Center Nurse 3 #1 Right lateral lower leg -Other Dressing SANTYL -Primary Dressing Covered/Secured with Dry Gauze & Roll Gauze, Secured with Tape Right -Tubular Bandage Double Layer -Size of Tubigrip Used Size D -Size D ($) 2 Pain Scale: 0-10 Numeric Is Patient Pain Free? Yes WC - Visit Discharge Discharge Condition Stable Ambulatory Status Ambulatory Transportation Private Auto Medication Reconcilliation completed & No provided to patient/care provider Clinical Summary of Care Provided Yes Assessment/Plan Assessment/Plan (1) Non-pressure chronic ulcer of other part of right lower leg with fat layer exposed: CODE(S): L97.812 - Non-pressure chronic ulcer of other part of right lower leg with fat layer exposed PLAN: Patient was examined and evaluated. All findings were discussed with the patient. All questions were answered to the patient's satisfaction. Excisional debridement down to and including subcutaneous tissue with a number 3 mm dermal curette to the level of the right lower extremity full-thickness ulceration. Predebridement measurement was 1.2 x 1.9 x 0.1 cm. Postdebridement measurement is 1.3 x 2.0 x 0.1 cm. Right lower extremities were cleaned and patted dry. Santyl was applied nickel thick with moist gauze and dry sterile dressing and Tubigrip. Patient will continue daily dressing changes for an additional week. When the patient follows up next week we will begin collagen application with moist Alissa and dry sterile dressing and Tubigrip. Patient is grateful for her care. Follow-up at the wound care center with Dr. Guillen in 1 week. (2) Other specified peripheral vascular diseases: CODE(S): I73.89 - Other specified peripheral vascular diseases
[2024-02-24 15:43] VITALS: RESP 16; TEMP 37.1; BMI 42.3
--- NOTE | 2024-02-24 16:53 | PCM.WC.PN ---
History of Present Illness Date of Service: 02/24/24 Chief Complaint: Right leg ulceration History of Wound: Chronic wound since August 2023 Subjective Subjective Mrs Gant is a 63-year-old female presenting to clinic today for follow-up evaluation of full-thickness ulceration to right leg. She has been doing home dressing changes with Santyl moist gauze and dry sterile dressing with double layer Tubigrip. She states that she notices improvement with her ulceration. She denies any new trauma. Denies constitutional symptoms. Other pedal complaints at this time. Objective Data Objective Data Vital Signs: Vital Signs Temp Pulse Resp BP O2 Del Method 98.7 F 90 16 163/78 H Room Air 02/24/24 15:43 02/17/24 15:50 02/24/24 15:43 02/17/24 15:50 02/24/24 15:43 Oxygen Delivery Method Room Air Weight: 122.47 kg Body Mass Index (BMI) 42.3 Physical Exam Narrative Vascular: DP and PT pulses are lightly palpable. CFT is brisk. Skin temperature great is warm to warm from proximal ankle to distal digits bilateral. No focal increase noted. Evidence of varicosities appreciated to the right lower extremity. Neurological: Light touch and epicritic sensation is intact. Dermatological: Full-thickness ulceration to the lateral aspect of the right lower extremity measuring 1.3 x 1.7 x 0.1 cm. Wound base is granular nature and improving. No evidence of erythema or proximal streaking. No drainage. No probe to bone. No sign of infection. Evidence of varicosities appreciated right lower extremity. Excisional debridement down to and including subcutaneous tissue with a number 3 mm dermal curette to the level of the right lower extremity full-thickness ulceration. Predebridement measurement was 1.2 x 1.6 x 0.1 cm. Postdebridement measurement is 1.3 x 1.7 x 0.1 cm. Musculoskeletal: Mild pain to palpation to the full-thickness ulceration to right leg. No pain with calf compression. Debridement Note Debridement Note Debridement Free Text: Excisional debridement down to and including subcutaneous tissue with a number 3 mm dermal curette to the level of the right lower extremity full-thickness ulceration. Predebridement measurement was 1.2 x 1.6 x 0.1 cm. Postdebridement measurement is 1.3 x 1.7 x 0.1 cm. Post-Debridement Measurements and Additional Note: Post-Debridement Measurements/Treatment WC - Nurse 1 - General Ulcer Assessment Start: 02/03/24 15:37 Freq: Status: Active Protocol: MELE Activity Type Activity Date Activity User E-sign Co-sign Detail Recorded Client Recorded Date Recorded By Document 02/03/24 15:37 KW Desktop 02/03/24 15:46 KW Document 02/17/24 15:50 CP Desktop 02/17/24 15:54 CP Document 02/24/24 15:43 GM Desktop 02/24/24 15:55 GM 02/03/24 02/17/24 02/24/24 15:37 15:50 15:43 WC - Today's Visit Information Type of service Follow-up Visit Follow-up Visit Follow-up Visit (Physician/WATCH MECHANIC (Physician/WATCH MECHANIC (Physician/WATCH MECHANIC ) ) ) Arrival Mode Ambulatory Ambulatory Ambulatory Transfer Assistance None Patient Identification Verified (Name & Yes Yes Yes ) Patient Requires Transmission-Based No No Precautions Safety Precautions NA NA Height and Weight Body Mass Index (BMI) 42.3 42.3 42.3 BMI Classification Obese Obese Obese Vital Signs Temperature (97.8 F-99.1 F) 97.4 F L 99.7 F H 98.7 F Temperature Source Temporal Temporal Temporal Pulse Rate (60-100) 94 90 Pulse Location Monitor Monitor Monitor Respiratory Rate (12-18) 18 16 16 Respiratory rate source Observation Observation Observation Oxygen Delivery Method Room Air Room Air Room Air Blood Pressure (90/60-120/80) 169/93 H 163/78 H Blood Pressure Mean (mm Hg) 118 106 Source Monitor Monitor Monitor Position Semi-Fowlers Semi-Fowlers Sitting Blood Pressure Location Left Arm Left Arm Left Arm History Since Last Visit- (Skip if this is Patient's initial visit) Have you changed medications since your No No No last visit? Any new allergies or adverse reactions No No No Had a fall/change in ADL's that may No No No increase risk of falls Signs or symptoms of abuse and/or No No No neglect since last visit Have you been in the hospital since your No No No last visit? Has dressing in place as prescribed Yes Yes Yes Has compression in place as prescribed Yes Yes Has offloadiing in place as prescribed N/A No Experienced any changes in pain level or No No management Left Footwear Regular Shoe Right Footwear Regular Shoe Pain Scale: 0-10 Numeric Is Patient Pain Free? Yes Yes Yes WC - Nurse 1 - General Ulcer Measurement Start: 02/03/24 15:37 Freq: Status: Active Protocol: Activity Type Activity Date Activity User E-sign Co-sign Detail Recorded Client Recorded Date Recorded By Document 02/03/24 15:37 KW Desktop 02/03/24 15:46 KW Document 02/17/24 15:50 CP Desktop 02/17/24 15:54 CP Document 02/24/24 15:43 GM Desktop 02/24/24 15:55 GM 02/03/24 02/17/24 02/24/24 15:37 15:50 15:43 Wound Center Nurse 1 #1 Right lateral lower leg -Current Size (cm) - Length 1.8 1.4 1.2 -Current Size (cm) - Width 2 1.7 1.7 -Current Size (cm) - Depth 0.1 0.1 0.1 -Total Square Cm 3.6 2.38 2.04 -Date of Last Picture (Recall this 02/03/24 field) -Photo Taken Yes No -Epithelialization None Present Medium 34-66% -Tunneling No No -Undermining/Tunneling No No -Circular Undermining No -Exudate Amt Medium Small Small -Exudate Type Serosanguineous Sanguineous Yellow/Green -Wound Margin Distinct, Flat & Intact Distinct, Outline Outline Attached Attached -Granulation Amt Medium (34-66%) Large (67-100%) Medium (34-66%) -Granulation Quality Red Red -Slough/Fibrin Yes Yes -Necrosis Amt Medium (34-66%) Small (1-33%) Small (1-33%) -Necrotic Tissue Type Adherent Slough Adherent Slough Adherent Slough -Structure Exposed N/A N/A -Texture (Goldie-wound Skin Appearance) Assessed No Abnormality Assessed -Moisture (Goldie-wound Skin Appearance) Assessed, No Abnormality Assessed Maceration -Color (Goldie-wound Skin Appearance) Assessed No Abnormality Assessed -Temperature (Goldie-wound Skin No Abnormality No Abnormality No Abnormality Appearance) (Pt Warm) (Pt Warm) (Pt Warm) -Tenderness on Palpation (Goldie-wound No Yes Skin Appearance) -Ulcer Cleansing Rinsed/ Rinsed/ Soap and Water Irrigated with Irrigated with Saline Saline -Foul Odor after Cleansing No No No -Anesthetic Used 5% Lidocaine 5% Lidocaine 5% Lidocaine Gel Gel Gel Right Calf (cm) 44.3 41.5 45.5 Right Ankle (cm) 22 23.4 23.5 WC - Nurse 2 - General Ulcer CM Notes Start: 02/03/24 15:37 Freq: Status: Active Protocol: Activity Type Activity Date Activity User E-sign Co-sign Detail Recorded Client Recorded Date Recorded By Document 02/03/24 16:06 [facility] Laptop 02/03/24 16:09 Document 02/17/24 16:02 [facility] Laptop 02/17/24 16:07 Document 02/24/24 16:05 [facility] Laptop 02/24/24 16:06 02/03/24 02/17/24 02/24/24 16:06 16:02 16:05 Wound Center Nurse 2 #1 Right lateral lower leg -Time 16:06 16:02 16:05 -Correct Patient Yes Yes Yes -Correct Side, Site, Position Yes Yes Yes -Correct Procedure Yes Yes Yes -Procedure Performed Yes Yes Yes -Type of Procedure Debridement Debridement Debridement -Clinical Debridement Subcutaneous Subcutaneous Subcutaneous -Tissue Removed Subcutaneous Subcutaneous Subcutaneous -Post Debridement (cm) - Length 1.6 1.3 1.3 -Post Debridement (cm) - Width 2.0 2 1.7 -Post Debridement (cm) - Depth 0.2 0.1 0.1 -Total Square (Post) (cm) 3.20 2.6 2.21 -Area of Debridement (cm) - Length 1.6 1.3 1.3 -Area of Debridement (cm) - Width 2.0 2.0 1.7 -Total Square (Area) (cm) 3.20 2.60 2.21 -Tunneling No No No -Undermining/Tunneling No No No -Circular Undermining No No No -Wound/Ulcer Outcome Not Healed Not Healed Not Healed -Ulcer Cleansing Rinsed/ Rinsed/ Rinsed/ Irrigated with Irrigated with Irrigated with Saline Saline Saline -Foul Odor after Cleansing No No No -Bioengineered Tissue No No No -Bleeding Controlled with Pressure Pressure Pressure -Treatment Response Procedure Procedure Procedure Tolerated Well Tolerated Well Tolerated Well -Offloading No No No -Debridement - Subq, 1st 20sq cm Yes Yes Yes Pain Scale: 0-10 Numeric Is Patient Pain Free? Yes Yes Yes - Nurse 3 - General Ulcer D/C NN Start: 02/03/24 15:37 Freq: Status: Active Protocol: Activity Type Activity Date Activity User E-sign Co-sign Detail Recorded Client Recorded Date Recorded By Document 02/03/24 16:12 KW Desktop 02/03/24 16:14 KW Document 02/17/24 16:19 BMF Desktop 02/17/24 16:19 BM Document 02/24/24 16:13 KW Desktop 02/24/24 16:13 KW 02/03/24 02/17/24 02/24/24 16:12 16:19 16:13 Wound Care Center Nurse 3 #1 Right lateral lower leg -Ulcer Cleansing Rinsed/ Irrigated with Saline -Foul Odor after Cleansing No -Primary Dressing Applied NonAdherent Contact Layer, Promogran Alissa Matter -Other Dressing SANTYL santyl -Primary Dressing Covered/Secured with Dry Gauze & Dry Gauze & Dry Gauze & Roll Gauze, Roll Gauze, Roll Gauze, Secured with Secured with Secured with Tape Tape Tape -Promogran Alissa Matter 1 Right -Tubular Bandage Double Layer Single Layer Double Layer -Size of Tubigrip Used Size D Size D Size D -Size D ($) 2 1 2 Treatment Response Procedure Tolerated Well Pain Scale: 0-10 Numeric Is Patient Pain Free? Yes Yes Yes - Visit Discharge Discharge Condition Stable Stable Stable Ambulatory Status Ambulatory Ambulatory Ambulatory Transportation Private Auto Private Auto Private Auto Medication Reconcilliation completed & No No provided to patient/care provider Clinical Summary of Care Provided Yes Yes Assessment/Plan Assessment/Plan (1) Non-pressure chronic ulcer of other part of right lower leg with fat layer exposed: CODE(S): L97.812 - Non-pressure chronic ulcer of other part of right lower leg with fat layer exposed PLAN: Patient was examined and evaluated. All findings were discussed with the patient. All questions were answered to the patient's satisfaction. Excisional debridement down to and including subcutaneous tissue with a number 3 mm dermal curette to the level of the right lower extremity full-thickness ulceration. Predebridement measurement was 1.2 x 1.6 x 0.1 cm. Postdebridement measurement is 1.3 x 1.7 x 0.1 cm. Right lower extremities were cleaned patted dry. We will stop the Santyl as the patient's wound is ready for collagen. The ulceration was dressed with Alissa, moist gauze dry sterile dressing and single-layer Tubigrip. Patient will perform daily dressing changes and was also dispensed Adaptic if needed. Patient was understanding of her dressing changes. Follow-up at the wound care center with Dr. Guillen in 1 week. (2) Other specified peripheral vascular diseases: CODE(S): I73.89 - Other specified peripheral vascular diseases
== END 2024-03-01 23:59 | disposition home or self-care (01) ==
LOC: WC 15:45
PROVIDERS: PCP Internal Medicine; Referring Provider Internal Medicine; Visit Provider Podiatrist Foot & Ankle Surgery
DX: L97.812 Non-pressure chronic ulcer of other part of right lower leg with fat layer exposed (principal); Z79.899 Other long term (current) drug therapy; I73.89 Other specified peripheral vascular diseases
CPT/HCPCS: 11042

== ENCOUNTER 2024-03-16 15:45 | Outpatient (RCR) | payer MEDICARE, OTHER, SELFPAY ==
[2024-03-02 00:51] VITALS: BP 163/78; PULSE 90; RESP 16; TEMP 37.1; BMI 42.3
[2024-03-02 15:46] VITALS: BP 136/64; PULSE 95; RESP 18; TEMP 36.2; BMI 42.3
--- NOTE | 2024-03-02 16:36 | PCM.WC.PN ---
History of Present Illness Date of Service: 03/02/24 Chief Complaint: Right leg ulceration History of Wound: Chronic wound since August 2023 Subjective Subjective Mrs Gant is a 64-year-old female presenting to clinic today for evaluation of full-thickness ulceration to right leg. She has been doing dressing changes with Alissa and dry sterile dressing and Tubigrip. She admits some improvement to her leg. She denies any new ulceration. Denies trauma. Denies constitutional symptoms. No other pedal complaints at this time. Objective Data Objective Data Vital Signs: Vital Signs Temp Pulse Resp BP O2 Del Method 97.1 F L 95 18 136/64 H Room Air 03/02/24 15:46 03/02/24 15:46 03/02/24 15:46 03/02/24 15:46 03/02/24 15:46 Oxygen Delivery Method Room Air Weight: 122.47 kg Body Mass Index (BMI) 42.3 Physical Exam Narrative Vascular: DP and PT pulses are lightly palpable. CFT is brisk. Skin temperature great is warm to warm from proximal ankle to distal digits bilateral. No focal increase noted. Evidence of varicosities appreciated to the right lower extremity. Neurological: Light touch and epicritic sensation is intact. Dermatological: Full-thickness ulceration to the lateral aspect of the right lower extremity measuring 1.4 x 1.5 x 0.1 cm. Wound base is granular nature and improving. No evidence of erythema or proximal streaking. No drainage. No probe to bone. No sign of infection. Evidence of varicosities appreciated right lower extremity. Excisional debridement down to and including subcutaneous tissue with a number 3 mm dermal curette to the level of the right lower extremity full-thickness ulceration. Predebridement measurement was 1.3 x 1.4 x 0.1 cm. Postdebridement measurement is 1.4 x 1.5 x 0.1 cm. Musculoskeletal: Mild pain to palpation to the full-thickness ulceration to right leg. No pain with calf compression. Debridement Note Debridement Note Debridement Free Text: Excisional debridement down to and including subcutaneous tissue with a number 3 mm dermal curette to the level of the right lower extremity full-thickness ulceration. Predebridement measurement was 1.3 x 1.4 x 0.1 cm. Postdebridement measurement is 1.4 x 1.5 x 0.1 cm. Post-Debridement Measurements and Additional Note: Post-Debridement Measurements/Treatment DEMETRIUS - Nurse 1 - General Ulcer Assessment Start: 03/02/24 15:46 Freq: Status: Active Protocol: MELE Activity Type Activity Date Activity User E-sign Co-sign Detail Recorded Client Recorded Date Recorded By Document 03/02/24 15:46 KW [employer] 03/02/24 15:51 KW 03/02/24 15:46 WC - Today's Visit Information Type of service Follow-up Visit (Physician/RETURN TO FACTORY CLERK ) Arrival Mode Ambulatory Patient Identification Verified (Name & Yes ) Height and Weight Body Mass Index (BMI) 42.3 BMI Classification Obese Vital Signs Temperature (97.8 F-99.1 F) 97.1 F L Temperature Source Temporal Pulse Rate (60-100) 95 Pulse Location Monitor Respiratory Rate (12-18) 18 Respiratory rate source Observation Oxygen Delivery Method Room Air Blood Pressure (90/60-120/80) 136/64 H Blood Pressure Mean (mm Hg) 88 Source Monitor Position Semi-Fowlers Blood Pressure Location Left Arm History Since Last Visit- (Skip if this is Patient's initial visit) Have you changed medications since your No last visit? Any new allergies or adverse reactions No Had a fall/change in ADL's that may No increase risk of falls Signs or symptoms of abuse and/or No neglect since last visit Have you been in the hospital since your No last visit? Has dressing in place as prescribed Yes Has compression in place as prescribed Yes Has offloadiing in place as prescribed N/A Experienced any changes in pain level or No management Left Footwear Regular Shoe Right Footwear Regular Shoe Pain Scale: 0-10 Numeric Is Patient Pain Free? Yes Marie Nurse 1 - General Ulcer Measurement Start: 03/02/24 15:46 Freq: Status: Active Protocol: Activity Type Activity Date Activity User E-sign Co-sign Detail Recorded Client Recorded Date Recorded By Document 03/02/24 15:46 KW [employer] 03/02/24 15:51 KW 03/02/24 15:46 Wound Center Nurse 1 #1 Right lateral lower leg -Current Size (cm) - Length 1.4 -Current Size (cm) - Width 1.7 -Current Size (cm) - Depth 0.2 -Total Square Cm 2.38 -Exudate Amt Small -Exudate Type Serosanguineous -Wound Margin Distinct, Outline Attached -Granulation Amt Large (67-100%) -Granulation Quality Red -Necrosis Amt Small (1-33%) -Necrotic Tissue Type Adherent Slough -Texture (Goldie-wound Skin Appearance) Assessed -Moisture (Goldie-wound Skin Appearance) Assessed -Color (Goldie-wound Skin Appearance) Assessed -Temperature (Goldie-wound Skin No Abnormality Appearance) (Pt Warm) -Tenderness on Palpation (Goldie-wound No Skin Appearance) -Ulcer Cleansing Soap and Water -Anesthetic Used 5% Lidocaine Gel Right Calf (cm) 43 Right Ankle (cm) 22.5 - Nurse 2 - General Ulcer CM Notes Start: 03/02/24 15:46 Freq: Status: Active Protocol: Activity Type Activity Date Activity User E-sign Co-sign Detail Recorded Client Recorded Date Recorded By Document 03/02/24 16:13 [employer] 03/02/24 16:14 03/02/24 16:13 Wound Center Nurse 2 #1 Right lateral lower leg -Time 16:14 -Correct Patient Yes -Correct Side, Site, Position Yes -Correct Procedure Yes -Procedure Performed Yes -Type of Procedure Debridement -Clinical Debridement Subcutaneous -Tissue Removed Subcutaneous -Post Debridement (cm) - Length 1.4 -Post Debridement (cm) - Width 1.5 -Post Debridement (cm) - Depth 0.1 -Total Square (Post) (cm) 2.10 -Area of Debridement (cm) - Length 1.4 -Area of Debridement (cm) - Width 1.5 -Total Square (Area) (cm) 2.10 -Tunneling No -Undermining/Tunneling No -Circular Undermining No -Wound/Ulcer Outcome Not Healed -Ulcer Cleansing Rinsed/ Irrigated with Saline -Foul Odor after Cleansing No -Bioengineered Tissue No -Bleeding Controlled with Pressure -Treatment Response Procedure Tolerated Well -Offloading No -Debridement - Subq, 1st 20sq cm Yes Pain Scale: 0-10 Numeric Is Patient Pain Free? Yes - Nurse 3 - General Ulcer D/C NN Start: 03/02/24 15:46 Freq: Status: Active Protocol: Activity Type Activity Date Activity User E-sign Co-sign Detail Recorded Client Recorded Date Recorded By Document 03/02/24 16:14 [employer] 03/02/24 16:15 03/02/24 16:14 Wound Care Center Nurse 3 #1 Right lateral lower leg -Ulcer Cleansing Rinsed/ Irrigated with Saline -Foul Odor after Cleansing No -Other Dressing hydrogel -Primary Dressing Covered/Secured with Dry Gauze, Secured with Tape Right -Tubular Bandage Double Layer -Size of Tubigrip Used Size D -Size D ($) 2 Pain Scale: 0-10 Numeric Is Patient Pain Free? Yes WC - Visit Discharge Discharge Condition Stable Ambulatory Status Ambulatory Transportation Private Auto Medication Reconcilliation completed & Yes provided to patient/care provider Clinical Summary of Care Provided Yes Assessment/Plan Assessment/Plan (1) Non-pressure chronic ulcer of other part of right lower leg with fat layer exposed: CODE(S): L97.812 - Non-pressure chronic ulcer of other part of right lower leg with fat layer exposed PLAN: Patient was examined and evaluated. All findings were discussed with the patient. All questions were answered to the patient's satisfaction. Excisional debridement down to and including subcutaneous tissue with a number 3 mm dermal curette to the level of the right lower extremity full-thickness ulceration. Predebridement measurement was 1.3 x 1.4 x 0.1 cm. Postdebridement measurement is 1.4 x 1.5 x 0.1 cm. Right lower extremities were cleaned and patted dry. Santyl nickel thick was applied to the ulceration followed by wet gauze dry sterile dressing and Tubigrip. We begin authorization for EpiFix to help speed up and heal the patient's full-thickness ulceration. We believe that the amniotic skin graft substitute will help desk operator in accelerating the patient's delayed healing wound. Follow-up at the wound care center with Dr. Guillen in 1 week. (2) Other specified peripheral vascular diseases: CODE(S): I73.89 - Other specified peripheral vascular diseases
[2024-03-09 15:39] VITALS: BP 138/73; PULSE 81; RESP 18; TEMP 37.9; BMI 42.3
--- NOTE | 2024-03-09 16:06 | PN.PCM_ITS ---
History of Present Illness Date of Service: 03/09/24 Chief Complaint: Right leg ulceration History of Wound: Chronic wound since August 2023 Subjective Subjective Mrs. Gant is a 64-year-old female presenting to the wound care center today for follow-up and evaluation to the right full-thickness ulceration. Patient has been doing home dressing changes with Santyl daily. She admits her wound is improving. We are still waiting approval for the amniotic skin graft substitute through her insurance. She denies any pain to the right heel. She denies trauma. Denies constitutional symptoms. No other pedal complaints at this time. Objective Data Objective Data Vital Signs: Vital Signs Temp Pulse Resp BP O2 Del Method 100.2 F H 81 18 138/73 H Room Air 03/09/24 15:39 03/09/24 15:39 03/09/24 15:39 03/09/24 15:39 03/09/24 15:39 Oxygen Delivery Method Room Air Weight: 122.47 kg Body Mass Index (BMI) 42.3 Physical Exam Narrative Vascular: DP and PT pulses are lightly palpable. CFT is brisk. Skin tempera ture great is warm to warm from proximal ankle to distal digits bilateral. No focal increase noted. Evidence of varicosities appreciated to the right lower extremity. Neurological: Light touch and epicritic sensation is intact. Dermatological: Full-thickness ulceration to the lateral aspect of the right lower extremity measuring 1.3 x 1.6 x 0.1 cm. Wound base is granular nature and improving. No evidence of erythema or proximal streaking. No drainage. No probe to bone. No sign of infection. Evidence of varicosities appreciated right lower extremity. Excisional debridement down to and including subcutaneous tissue with a number 3 mm dermal curette to the level of the right lower extremity full-thickness ulceration. Predebridement measurement was 1.2 x 1.5 x 0.1 cm. Postdebridement measurement is 1.3 x 1.6 x 0.1 cm. Musculoskeletal: Mild pain to palpation to the full-thickness ulceration to right leg. No pain with calf compression. Debridement Note Debridement Note Debridement Free Text: Excisional debridement down to and including subcutaneous tissue with a number 3 mm dermal curette to the level of the right lower extremity full-thickness ulceration. Predebridement measurement was 1.2 x 1.5 x 0.1 cm. Postdebridement measurement is 1.3 x 1.6 x 0.1 cm. Post-Debridement Measurements and Additional Note: Post-Debridement Measurements/Treatment WC - Nurse 1 - General Ulcer Assessment Start: 03/02/24 15:46 Freq: Status: Active Protocol: MELE Activity Type Activity Date Activity User E-sign Co-sign Detail Recorded Client Recorded Date Recorded By Document 03/02/24 15:46 KW Desktop 03/02/24 15:51 KW Document 03/09/24 15:39 KW Desktop 03/09/24 15:44 KW 03/02/24 03/09/24 15:46 15:39 WC - Today's Visit Information Type of service Follow-up Visit Follow-up Visit (Physician/TREE AND SHRUB TECHNICIAN (Physician/TREE AND SHRUB TECHNICIAN ) ) Arrival Mode Ambulatory Ambulatory Patient Identification Verified (Name & Yes Yes ) Height and Weight Body Mass Index (BMI) 42.3 42.3 BMI Classification Obese Obese Vital Signs Temperature (97.8 F-99.1 F) 97.1 F L 100.2 F H Temperature Source Temporal Temporal Pulse Rate (60-100) 95 81 Pulse Location Monitor Monitor Respiratory Rate (12-18) 18 18 Respiratory rate source Observation Observation Oxygen Delivery Method Room Air Room Air Blood Pressure (90/60-120/80) 136/64 H 138/73 H Blood Pressure Mean (mm Hg) 88 94 Source Monitor Monitor Position Semi-Fowlers Semi-Fowlers Blood Pressure Location Left Arm Left Arm History Since Last Visit- (Skip if this is Patient's initial visit) Have you changed medications since your No No last visit? Any new allergies or adverse reactions No No Had a fall/change in ADL's that may No No increase risk of falls Signs or symptoms of abuse and/or No No neglect since last visit Have you been in the hospital since your No No last visit? Has dressing in place as prescribed Yes Yes Has compression in place as prescribed Yes Yes Has offloadiing in place as prescribed N/A N/A Experienced any changes in pain level or No No management Left Footwear Regular Shoe Regular Shoe Right Footwear Regular Shoe Regular Shoe Pain Scale: 0-10 Numeric Is Patient Pain Free? Yes Yes - Nurse 1 - General Ulcer Measurement Start: 03/02/24 15:46 Freq: Status: Active Protocol: Activity Type Activity Date Activity User E-sign Co-sign Detail Recorded Client Recorded Date Recorded By Document 03/02/24 15:46 KW Desktop 03/02/24 15:51 KW Document 03/09/24 15:39 KW Desktop 03/09/24 15:44 KW Edit Result 03/09/24 15:39 KW (1) Desktop 03/09/24 15:45 KW (1) Right Calf (cm) => 41 Right Ankle (cm) => 22.2 03/02/24 03/09/24 15:46 15:39 Wound Center Nurse 1 #1 Right lateral lower leg -Current Size (cm) - Length 1.4 1.6 -Current Size (cm) - Width 1.7 1.8 -Current Size (cm) - Depth 0.2 0.2 -Total Square Cm 2.38 2.88 -Exudate Amt Small Small -Exudate Type Serosanguineous Serosanguineous -Wound Margin Distinct, Distinct, Outline Outline Attached Attached -Granulation Amt Large (67-100%) Medium (34-66%) -Granulation Quality Red Red -Necrosis Amt Small (1-33%) Small (1-33%) -Necrotic Tissue Type Adherent Slough Adherent Slough -Texture (Goldie-wound Skin Appearance) Assessed Assessed -Moisture (Goldie-wound Skin Appearance) Assessed Assessed -Color (Goldie-wound Skin Appearance) Assessed Assessed -Temperature (Goldie-wound Skin No Abnormality No Abnormality Appearance) (Pt Warm) (Pt Warm) -Tenderness on Palpation (Goldie-wound No No Skin Appearance) -Ulcer Cleansing Soap and Water Rinsed/ Irrigated with Saline -Foul Odor after Cleansing No -Anesthetic Used 5% Lidocaine 5% Lidocaine Gel Gel Right Calf (cm) 43 41 Right Ankle (cm) 22.5 22.2 WC - Nurse 2 - General Ulcer CM Notes Start: 03/02/24 15:46 Freq: Status: Active Protocol: Activity Type Activity Date Activity User E-sign Co-sign Detail Recorded Client Recorded Date Recorded By Document 03/02/24 16:13 Laptop 03/02/24 16:14 Document 03/09/24 15:54 Laptop 03/09/24 15:56 JF 03/02/24 03/09/24 16:13 15:54 Wound Center Nurse 2 #1 Right lateral lower leg -Time 16:14 15:55 -Correct Patient Yes Yes -Correct Side, Site, Position Yes Yes -Correct Procedure Yes Yes -Procedure Performed Yes Yes -Type of Procedure Debridement Debridement -Clinical Debridement Subcutaneous Subcutaneous -Tissue Removed Subcutaneous Subcutaneous -Post Debridement (cm) - Length 1.4 1.3 -Post Debridement (cm) - Width 1.5 1.6 -Post Debridement (cm) - Depth 0.1 0.1 -Total Square (Post) (cm) 2.10 2.08 -Area of Debridement (cm) - Length 1.4 1.3 -Area of Debridement (cm) - Width 1.5 1.6 -Total Square (Area) (cm) 2.10 2.08 -Tunneling No No -Undermining/Tunneling No No -Circular Undermining No No -Wound/Ulcer Outcome Not Healed Not Healed -Ulcer Cleansing Rinsed/ Rinsed/ Irrigated with Irrigated with Saline Saline -Foul Odor after Cleansing No No -Bioengineered Tissue No No -Bleeding Controlled with Pressure Pressure -Treatment Response Procedure Procedure Tolerated Well Tolerated Well -Offloading No No -Debridement - Subq, 1st 20sq cm Yes Yes Pain Scale: 0-10 Numeric Is Patient Pain Free? Yes Yes - Nurse 3 - General Ulcer D/C NN Start: 03/02/24 15:46 Freq: Status: Active Protocol: Activity Type Activity Date Activity User E-sign Co-sign Detail Recorded Client Recorded Date Recorded By Document 03/02/24 16:14 Laptop 03/02/24 16:15 Document 03/09/24 15:56 Laptop 03/09/24 15:57 03/02/24 03/09/24 16:14 15:56 Wound Care Center Nurse 3 #1 Right lateral lower leg -Ulcer Cleansing Rinsed/ Rinsed/ Irrigated with Irrigated with Saline Saline -Foul Odor after Cleansing No No -Other Dressing hydrogel santyl -Primary Dressing Covered/Secured with Dry Gauze, Dry Gauze & Secured with Roll Gauze, Tape Secured with Tape Right -Tubular Bandage Double Layer Double Layer -Size of Tubigrip Used Size D Size D -Size D ($) 2 2 Pain Scale: 0-10 Numeric Is Patient Pain Free? Yes Yes - Visit Discharge Discharge Condition Stable Stable Ambulatory Status Ambulatory Ambulatory Transportation Private Auto Private Auto Medication Reconcilliation completed & Yes Yes provided to patient/care provider Clinical Summary of Care Provided Yes Yes Assessment/Plan Assessment/Plan (1) Non-pressure chronic ulcer of other part of right lower leg with fat layer exposed: CODE(S): L97.812 - Non-pressure chronic ulcer of other part of right lower leg with fat layer exposed PLAN: Patient was examined and evaluated. All findings were discussed with the patient. All questions were answered to the patient's satisfaction. Excisional debridement down to and including subcutaneous tissue with a number 3 mm dermal curette to the level of the right lower extremity full-thickness ulceration. Predebridement measurement was 1.2 x 1.5 x 0.1 cm. Postdebridement measurement is 1.3 x 1.6 x 0.1 cm. The right lower extremity were cleaned and patted dry. Santyl nickel thick with moist gauze was applied to the right lower extremity followed by dry sterile dressing and compression wrap. Patient will do daily dressing changes and will continue authorizing for amniotic skin graft substitute. Follow-up at the wound care center with Dr. Guillen in 1 week. (2) Other specified peripheral vascular diseases: CODE(S): I73.89 - Other specified peripheral vascular diseases
[2024-03-16 15:42] VITALS: BP 153/78; PULSE 100; RESP 18; TEMP 36.6; BMI 42.3
--- NOTE | 2024-03-16 16:34 | PN.PCM_ITS ---
History of Present Illness Date of Service: 03/16/24 Chief Complaint: Right leg ulceration History of Wound: Chronic wound since August 2023 Subjective Subjective Mrs. Gant is a 64-year-old female presenting to the wound care center today for follow-up evaluation of full-thickness ulceration to the right lower extremity. Patient has been doing home dressing changes as discussed during her last visit. Patient has been approved for amniotic skin graft substitute. She denies trauma. Denies constitutional symptoms. No other pedal complaints at this time. Objective Data Objective Data Vital Signs: Vital Signs Temp Pulse Resp BP O2 Del Method 97.8 F 100 18 153/78 H Room Air 03/16/24 15:42 03/16/24 15:42 03/16/24 15:42 03/16/24 15:42 03/16/24 15:42 Oxygen Delivery Method Room Air Weight: 122.47 kg Body Mass Index (BMI) 42.3 Physical Exam Narrative Vascular: DP and PT pulses are lightly palpable. CFT is brisk. Skin temperature great is warm to warm from proximal ankle to distal digits bilateral. No focal increase noted. Evidence of varicosities appreciated to the right lower extremity. Neurological: Light touch and epicritic sensation is intact. Dermatological: Full-thickness ulceration to the lateral aspect of the right lower extremity measuring 1.2 x 1.7 x 0.1 cm. Wound base is granular nature and improving. No evidence of erythema or proximal streaking. No drainage. No probe to bone. No sign of infection. Evidence of varicosities appreciated right lower extremity. Excisional debridement down to and including subcutaneous tissue with a number 3 mm dermal curette to the level of the right lower extremity full-thickness ulceration. Predebridement measurement was 1.2 x 1.6 x 0.1 cm. Postdebridement measurement is 1.2 x 1.7 x 0.1 cm. EpiFix 18 mm disc was applied to the right full-thickness ulceration with 100% use. First application. The graft site was free and clear of any infection. The wound/skin graft substitute was dressed with nonadherent bandage secured in place with Steri-Strips followed by bolster dressing as well as a double layer Tubigrip. Musculoskeletal: Mild pain to palpation to the full-thickness ulceration to right leg. No pain with calf compression. Debridement Note Debridement Note Debridement Free Text: Excisional debridement down to and including subcutaneous tissue with a number 3 mm dermal curette to the level of the right lower extremity full-thickness ulceration. Predebridement measurement was 1.2 x 1.6 x 0.1 cm. Postdebridement measurement is 1.2 x 1.7 x 0.1 cm. EpiFix 18 mm disc was applied to the right full-thickness ulceration with 100% use. First application. The graft site was free and clear of any infection. The wound/skin graft substitute was dressed with nonadherent bandage secured in place with Steri-Strips followed by bolster dressing as well as a double layer Tubigrip. Post-Debridement Measurements and Additional Note: Post-Debridement Measurements/Treatment - Nurse 1 - General Ulcer Assessment Start: 03/02/24 15:46 Freq: Status: Active Protocol: MELE Activity Type Activity Date Activity User E-sign Co-sign Detail Recorded Client Recorded Date Recorded By Document 03/02/24 15:46 KW Desktop 03/02/24 15:51 KW Document 03/09/24 15:39 KW Desktop 03/09/24 15:44 KW Document 03/16/24 15:42 KW [id number] 03/16/24 15:47 KW 03/02/24 03/09/24 03/16/24 15:46 15:39 15:42 - Today's Visit Information Type of service Follow-up Visit Follow-up Visit Follow-up Visit (Physician/MACHINE BILLER (Physician/MACHINE BILLER (Physician/MACHINE BILLER ) ) ) Arrival Mode Ambulatory Ambulatory Ambulatory Patient Identification Verified (Name & Yes Yes Yes ) Height and Weight Body Mass Index (BMI) 42.3 42.3 42.3 BMI Classification Obese Obese Obese Vital Signs Temperature (97.8 F-99.1 F) 97.1 F L 100.2 F H 97.8 F Temperature Source Temporal Temporal Oral Pulse Rate (60-100) 95 81 100 Pulse Location Monitor Monitor Monitor Respiratory Rate (12-18) 18 18 18 Respiratory rate source Observation Observation Observation Oxygen Delivery Method Room Air Room Air Room Air Blood Pressure (90/60-120/80) 136/64 H 138/73 H 153/78 H Blood Pressure Mean (mm Hg) 88 94 103 Source Monitor Monitor Monitor Position Semi-Fowlers Semi-Fowlers Supine Blood Pressure Location Left Arm Left Arm Left Arm History Since Last Visit- (Skip if this is Patient's initial visit) Have you changed medications since your No No No last visit? Any new allergies or adverse reactions No No No Had a fall/change in ADL's that may No No No increase risk of falls Signs or symptoms of abuse and/or No No No neglect since last visit Have you been in the hospital since your No No No last visit? Has dressing in place as prescribed Yes Yes Yes Has compression in place as prescribed Yes Yes Yes Has offloadiing in place as prescribed N/A N/A N/A Experienced any changes in pain level or No No No management Left Footwear Regular Shoe Regular Shoe Regular Shoe Right Footwear Regular Shoe Regular Shoe Regular Shoe Pain Scale: 0-10 Numeric Is Patient Pain Free? Yes Yes Yes WC - Nurse 1 - General Ulcer Measurement Start: 03/02/24 15:46 Freq: Status: Active Protocol: Activity Type Activity Date Activity User E-sign Co-sign Detail Recorded Client Recorded Date Recorded By Document 03/02/24 15:46 KW Desktop 03/02/24 15:51 KW Document 03/09/24 15:39 KW Desktop 03/09/24 15:44 KW Edit Result 03/09/24 15:39 KW (1) Desktop 03/09/24 15:45 KW Document 03/16/24 15:42 KW [id number] 03/16/24 15:47 KW (1) Right Calf (cm) => 41 Right Ankle (cm) => 22.2 03/02/24 03/09/24 03/16/24 15:46 15:39 15:42 Wound Center Nurse 1 #1 Right lateral lower leg -Combined with other wound No -Current Size (cm) - Length 1.4 1.6 1.6 -Current Size (cm) - Width 1.7 1.8 1.8 -Current Size (cm) - Depth 0.2 0.2 0.2 -Total Square Cm 2.38 2.88 2.88 -Epithelialization Small 1-33% -Tunneling No -Undermining/Tunneling No -Circular Undermining No -Exudate Amt Small Small Medium -Exudate Type Serosanguineous Serosanguineous Serosanguineous -Wound Margin Distinct, Distinct, Distinct, Outline Outline Outline Attached Attached Attached -Granulation Amt Large (67-100%) Medium (34-66%) Large (67-100%) -Granulation Quality Red Red Red -Slough/Fibrin Yes -Necrosis Amt Small (1-33%) Small (1-33%) Small (1-33%) -Necrotic Tissue Type Adherent Slough Adherent Slough Adherent Slough -Texture (Goldie-wound Skin Appearance) Assessed Assessed Assessed, Scarring -Moisture (Goldie-wound Skin Appearance) Assessed Assessed Assessed, Maceration -Color (Goldie-wound Skin Appearance) Assessed Assessed Assessed -Temperature (Goldie-wound Skin No Abnormality No Abnormality No Abnormality Appearance) (Pt Warm) (Pt Warm) (Pt Warm) -Tenderness on Palpation (Goldie-wound No No No Skin Appearance) -Ulcer Cleansing Soap and Water Rinsed/ Rinsed/ Irrigated with Irrigated with Saline Saline -Foul Odor after Cleansing No No -Anesthetic Used 5% Lidocaine 5% Lidocaine 5% Lidocaine Gel Gel Gel Lower Limb Edema Present Yes Right Calf (cm) 43 41 Right Ankle (cm) 22.5 22.2 Left Calf (cm) 41.5 Left Ankle (cm) 22.1 - Nurse 2 - General Ulcer CM Notes Start: 03/02/24 15:46 Freq: Status: Active Protocol: Activity Type Activity Date Activity User E-sign Co-sign Detail Recorded Client Recorded Date Recorded By Document 03/02/24 16:13 Laptop 03/02/24 16:14 Document 03/09/24 15:54 Laptop 03/09/24 15:56 Document 03/16/24 15:57 [id number] 03/16/24 16:03 03/02/24 03/09/24 03/16/24 16:13 15:54 15:57 Wound Center Nurse 2 #1 Right lateral lower leg -Time 16:14 15:55 15:57 -Correct Patient Yes Yes Yes -Correct Side, Site, Position Yes Yes Yes -Correct Procedure Yes Yes Yes -Procedure Performed Yes Yes Yes -Type of Procedure Debridement Debridement Debridement -Clinical Debridement Subcutaneous Subcutaneous Subcutaneous -Tissue Removed Subcutaneous Subcutaneous Subcutaneous -Post Debridement (cm) - Length 1.4 1.3 -Post Debridement (cm) - Width 1.5 1.6 -Post Debridement (cm) - Depth 0.1 0.1 -Total Square (Post) (cm) 2.10 2.08 -Area of Debridement (cm) - Length 1.4 1.3 -Area of Debridement (cm) - Width 1.5 1.6 -Total Square (Area) (cm) 2.10 2.08 -Tunneling No No No -Undermining/Tunneling No No No -Circular Undermining No No No -Wound/Ulcer Outcome Not Healed Not Healed Not Healed -Ulcer Cleansing Rinsed/ Rinsed/ Irrigated with Irrigated with Saline Saline -Foul Odor after Cleansing No No -Bioengineered Tissue No No Yes -Type of Bioengineered Tissue Epifix 18mm Disc -Expiration Date 10/02/28 -Product Lot Number [id number] -Percent Used 100 -Lot number of Saline Used [id number] -Bleeding Controlled with Pressure Pressure Pressure -Treatment Response Procedure Procedure Procedure Tolerated Well Tolerated Well Tolerated Well -Offloading No No -Debridement - Subq, 1st 20sq cm Yes Yes No -Epifix 18mm Disc 3 Pain Scale: 0-10 Numeric Is Patient Pain Free? Yes Yes Yes - Nurse 3 - General Ulcer D/C NN Start: 03/02/24 15:46 Freq: Status: Active Protocol: Activity Type Activity Date Activity User E-sign Co-sign Detail Recorded Client Recorded Date Recorded By Document 03/02/24 16:14 Laptop 03/02/24 16:15 Document 03/09/24 15:56 Laptop 03/09/24 15:57 03/02/24 03/09/24 16:14 15:56 Wound Care Center Nurse 3 #1 Right lateral lower leg -Ulcer Cleansing Rinsed/ Rinsed/ Irrigated with Irrigated with Saline Saline -Foul Odor after Cleansing No No -Other Dressing hydrogel santyl -Primary Dressing Covered/Secured with Dry Gauze, Dry Gauze & Secured with Roll Gauze, Tape Secured with Tape Right -Tubular Bandage Double Layer Double Layer -Size of Tubigrip Used Size D Size D -Size D ($) 2 2 Pain Scale: 0-10 Numeric Is Patient Pain Free? Yes Yes - Visit Discharge Discharge Condition Stable Stable Ambulatory Status Ambulatory Ambulatory Transportation Private Auto Private Auto Medication Reconcilliation completed & Yes Yes provided to patient/care provider Clinical Summary of Care Provided Yes Yes Assessment/Plan Assessment/Plan (1) Non-pressure chronic ulcer of other part of right lower leg with fat layer exposed: CODE(S): L97.812 - Non-pressure chronic ulcer of other part of right lower leg with fat layer exposed PLAN: Patient was examined and evaluated. All findings were discussed with the patient. All questions were answered to the patient's satisfaction. Excisional debridement down to and including subcutaneous tissue with a number 3 mm dermal curette to the level of the right lower extremity full-thickness ulceration. Predebridement measurement was 1.2 x 1.6 x 0.1 cm. Postdebridement measurement is 1.2 x 1.7 x 0.1 cm. EpiFix 18 mm disc was applied to the right full-thickness ulceration with 100% use. First application. The graft site was free and clear of any infection. The wound/skin graft substitute was dressed with nonadherent bandage secured in place with Steri-Strips followed by bolster dressing as well as a double layer Tubigrip. Follow-up at the wound care center with Dr. Guillen in 1 week. (2) Other specified peripheral vascular diseases: CODE(S): I73.89 - Other specified peripheral vascular diseases
[2024-03-23 15:51] VITALS: BP 138/65; PULSE 80; RESP 18; BMI 42.3
--- NOTE | 2024-03-23 16:27 | PCM.WC.PN ---
History of Present Illness Date of Service: 03/23/24 Chief Complaint: Right leg ulceration History of Wound: Chronic wound since August 2023 Subjective Subjective Mrs. Gant is a 64-year-old female presenting to the wound care center today for follow-up evaluation of full-thickness ulceration to the right leg. She has left her dressing clean dry and intact. She notices that with removal of her dressing her ulceration is improving. She continues to wear her compression sleeve. She is working without any pain. Denies trauma. Denies constitutional symptoms. No other pedal complaints at this time. Objective Data Objective Data Vital Signs: Vital Signs Temp Pulse Resp BP O2 Del Method 97.8 F 80 18 138/65 H Room Air 03/16/24 15:42 03/23/24 15:51 03/23/24 15:51 03/23/24 15:51 03/23/24 15:51 Oxygen Delivery Method Room Air Weight: 122.47 kg Body Mass Index (BMI) 42.3 Physical Exam Narrative Vascular: DP and PT pulses are lightly palpable. CFT is brisk. Skin temperature great is warm to warm from proximal ankle to distal digits bilateral. No focal increase noted. Evidence of varicosities appreciated to the right lower extremity. Neurological: Light touch and epicritic sensation is intact. Dermatological: Full-thickness ulceration to the lateral aspect of the right lower extremity measuring 1.4 x 1.4 x 0.1 cm. Wound base is granular nature and improving. No evidence of erythema or proximal streaking. No drainage. No probe to bone. No sign of infection. Evidence of varicosities appreciated right lower extremity. Excisional debridement down to and including subcutaneous tissue with a number 3 mm dermal curette to the level of the right lower extremity full-thickness ulceration. Predebridement measurement was 1.3 x 1.3 x 0.1 cm. Postdebridement measurement is 1.4 x 1.4 x 0.1 cm. EpiFix 18 mm disc was applied to the right full-thickness ulceration with 100% use. Second application. The graft site was free and clear of any infection. The wound/skin graft substitute was dressed with nonadherent bandage secured in place with Steri-Strips followed by bolster dressing as well as a double layer Tubigrip. Musculoskeletal: Mild pain to palpation to the full-thickness ulceration to right leg. No pain with calf compression. Debridement Note Debridement Note Debridement Free Text: Excisional debridement down to and including subcutaneous tissue with a number 3 mm dermal curette to the level of the right lower extremity full-thickness ulceration. Predebridement measurement was 1.3 x 1.3 x 0.1 cm. Postdebridement measurement is 1.4 x 1.4 x 0.1 cm. EpiFix 18 mm disc was applied to the right full-thickness ulceration with 100% use. Second application. The graft site was free and clear of any infection. The wound/skin graft substitute was dressed with nonadherent bandage secured in place with Steri-Strips followed by bolster dressing as well as a double layer Tubigrip Post-Debridement Measurements and Additional Note: Post-Debridement Measurements/Treatment - Nurse 1 - General Ulcer Assessment Start: 03/02/24 15:46 Freq: Status: Active Protocol: [email or web address].[email or web address] Activity Type Activity Date Activity User E-sign Co-sign Detail Recorded Client Recorded Date Recorded By Document 03/02/24 15:46 KW Desktop 03/02/24 15:51 KW Document 03/09/24 15:39 KW Desktop 03/09/24 15:44 KW Document 03/16/24 15:42 KW [id number] 03/16/24 15:47 KW Document 03/23/24 15:51 KW wound center 03/23/24 15:57 KW 03/02/24 03/09/24 03/16/24 15:46 15:39 15:42 - Today's Visit Information Type of service Follow-up Visit Follow-up Visit Follow-up Visit (Physician/PROTECTIVE SIGNAL INSTALLER (Physician/PROTECTIVE SIGNAL INSTALLER (Physician/PROTECTIVE SIGNAL INSTALLER ) ) ) Arrival Mode Ambulatory Ambulatory Ambulatory Patient Identification Verified (Name & Yes Yes Yes ) Height and Weight Body Mass Index (BMI) 42.3 42.3 42.3 BMI Classification Obese Obese Obese Vital Signs Temperature (97.8 F-99.1 F) 97.1 F L 100.2 F H 97.8 F Temperature Source Temporal Temporal Oral Pulse Rate (60-100) 95 81 100 Pulse Location Monitor Monitor Monitor Respiratory Rate (12-18) 18 18 18 Respiratory rate source Observation Observation Observation Oxygen Delivery Method Room Air Room Air Room Air Blood Pressure (90/60-120/80) 136/64 H 138/73 H 153/78 H Blood Pressure Mean (mm Hg) 88 94 103 Source Monitor Monitor Monitor Position Semi-Fowlers Semi-Fowlers Supine Blood Pressure Location Left Arm Left Arm Left Arm History Since Last Visit- (Skip if this is Patient's initial visit) Have you changed medications since your No No No last visit? Any new allergies or adverse reactions No No No Had a fall/change in ADL's that may No No No increase risk of falls Signs or symptoms of abuse and/or No No No neglect since last visit Have you been in the hospital since your No No No last visit? Has dressing in place as prescribed Yes Yes Yes Has compression in place as prescribed Yes Yes Yes Has offloadiing in place as prescribed N/A N/A N/A Experienced any changes in pain level or No No No management Left Footwear Regular Shoe Regular Shoe Regular Shoe Right Footwear Regular Shoe Regular Shoe Regular Shoe Pain Scale: 0-10 Numeric Is Patient Pain Free? Yes Yes Yes 03/23/24 15:51 WC - Today's Visit Information Type of service Follow-up Visit (Physician/PROTECTIVE SIGNAL INSTALLER ) Arrival Mode Ambulatory Patient Identification Verified (Name & Yes ) Height and Weight Body Mass Index (BMI) 42.3 BMI Classification Obese Vital Signs Temperature (97.8 F-99.1 F) Temperature Source Pulse Rate (60-100) 80 Pulse Location Monitor Respiratory Rate (12-18) 18 Respiratory rate source Observation Oxygen Delivery Method Room Air Blood Pressure (90/60-120/80) 138/65 H Blood Pressure Mean (mm Hg) 89 Source Monitor Position Supine Blood Pressure Location Left Arm History Since Last Visit- (Skip if this is Patient's initial visit) Have you changed medications since your No last visit? Any new allergies or adverse reactions No Had a fall/change in ADL's that may No increase risk of falls Signs or symptoms of abuse and/or No neglect since last visit Have you been in the hospital since your No last visit? Has dressing in place as prescribed Yes Has compression in place as prescribed Yes Has offloadiing in place as prescribed N/A Experienced any changes in pain level or No management Left Footwear Regular Shoe Right Footwear Regular Shoe Pain Scale: 0-10 Numeric Is Patient Pain Free? Yes WC - Nurse 1 - General Ulcer Measurement Start: 03/02/24 15:46 Freq: Status: Active Protocol: Activity Type Activity Date Activity User E-sign Co-sign Detail Recorded Client Recorded Date Recorded By Document 03/02/24 15:46 KW Desktop 03/02/24 15:51 KW Document 03/09/24 15:39 KW Desktop 03/09/24 15:44 KW Edit Result 03/09/24 15:39 KW (1) Desktop 03/09/24 15:45 KW Document 03/16/24 15:42 KW [id number] 03/16/24 15:47 KW Document 03/23/24 15:51 KW wound center 03/23/24 15:57 KW (1) Right Calf (cm) => 41 Right Ankle (cm) => 22.2 03/02/24 03/09/24 03/16/24 15:46 15:39 15:42 Wound Center Nurse 1 #1 Right lateral lower leg -Combined with other wound No -Current Size (cm) - Length 1.4 1.6 1.6 -Current Size (cm) - Width 1.7 1.8 1.8 -Current Size (cm) - Depth 0.2 0.2 0.2 -Total Square Cm 2.38 2.88 2.88 -Photo Taken -Epithelialization Small 1-33% -Tunneling No -Undermining/Tunneling No -Circular Undermining No -Exudate Amt Small Small Medium -Exudate Type Serosanguineous Serosanguineous Serosanguineous -Wound Margin Distinct, Distinct, Distinct, Outline Outline Outline Attached Attached Attached -Granulation Amt Large (67-100%) Medium (34-66%) Large (67-100%) -Granulation Quality Red Red Red -Slough/Fibrin Yes -Necrosis Amt Small (1-33%) Small (1-33%) Small (1-33%) -Necrotic Tissue Type Adherent Slough Adherent Slough Adherent Slough -Texture (Goldie-wound Skin Appearance) Assessed Assessed Assessed, Scarring -Moisture (Goldie-wound Skin Appearance) Assessed Assessed Assessed, Maceration -Color (Goldie-wound Skin Appearance) Assessed Assessed Assessed -Temperature (Goldie-wound Skin No Abnormality No Abnormality No Abnormality Appearance) (Pt Warm) (Pt Warm) (Pt Warm) -Tenderness on Palpation (Goldie-wound No No No Skin Appearance) -Ulcer Cleansing Soap and Water Rinsed/ Rinsed/ Irrigated with Irrigated with Saline Saline -Foul Odor after Cleansing No No -Anesthetic Used 5% Lidocaine 5% Lidocaine 5% Lidocaine Gel Gel Gel Lower Limb Edema Present Yes Right Calf (cm) 43 41 Right Ankle (cm) 22.5 22.2 Left Calf (cm) 41.5 Left Ankle (cm) 22.1 03/23/24 15:51 Wound Center Nurse 1 #1 Right lateral lower leg -Combined with other wound -Current Size (cm) - Length 1.1 -Current Size (cm) - Width 1.2 -Current Size (cm) - Depth 0.2 -Total Square Cm 1.32 -Photo Taken No -Epithelialization Medium 34-66% -Tunneling -Undermining/Tunneling -Circular Undermining -Exudate Amt Small -Exudate Type Serosanguineous -Wound Margin Distinct, Outline Attached -Granulation Amt Large (67-100%) -Granulation Quality Three Points,Red -Slough/Fibrin -Necrosis Amt -Necrotic Tissue Type -Texture (Goldie-wound Skin Appearance) Assessed -Moisture (Goldie-wound Skin Appearance) Assessed -Color (Goldie-wound Skin Appearance) Assessed -Temperature (Goldie-wound Skin No Abnormality Appearance) (Pt Warm) -Tenderness on Palpation (Goldie-wound No Skin Appearance) -Ulcer Cleansing Soap and Water -Foul Odor after Cleansing No -Anesthetic Used 5% Lidocaine Gel Lower Limb Edema Present Right Calf (cm) 42.5 Right Ankle (cm) 22 Left Calf (cm) Left Ankle (cm) WC - Nurse 2 - General Ulcer CM Notes Start: 03/02/24 15:46 Freq: Status: Active Protocol: Activity Type Activity Date Activity User E-sign Co-sign Detail Recorded Client Recorded Date Recorded By Document 03/02/24 16:13 JF Laptop 03/02/24 16:14 JF Document 03/09/24 15:54 JF Laptop 03/09/24 15:56 JF Document 03/16/24 15:57 [place] [id number] 03/16/24 16:03 DS Edit Result 03/16/24 15:57 DS (1) [id number] 03/18/24 09:28 DS Document 03/23/24 16:04 JF [id number] 03/23/24 16:12 JF (1) #1 Right lateral lower leg - Apply Skin Sub - 1st 25 sq cm - Legs => 1 03/02/24 03/09/24 03/16/24 16:13 15:54 15:57 Wound Center Nurse 2 #1 Right lateral lower leg -Time 16:14 15:55 15:57 -Correct Patient Yes Yes Yes -Correct Side, Site, Position Yes Yes Yes -Correct Procedure Yes Yes Yes -Procedure Performed Yes Yes Yes -Type of Procedure Debridement Debridement Debridement -Clinical Debridement Subcutaneous Subcutaneous Subcutaneous -Tissue Removed Subcutaneous Subcutaneous Subcutaneous -Post Debridement (cm) - Length 1.4 1.3 -Post Debridement (cm) - Width 1.5 1.6 -Post Debridement (cm) - Depth 0.1 0.1 -Total Square (Post) (cm) 2.10 2.08 -Area of Debridement (cm) - Length 1.4 1.3 -Area of Debridement (cm) - Width 1.5 1.6 -Total Square (Area) (cm) 2.10 2.08 -Tunneling No No No -Undermining/Tunneling No No No -Circular Undermining No No No -Wound/Ulcer Outcome Not Healed Not Healed Not Healed -Ulcer Cleansing Rinsed/ Rinsed/ Irrigated with Irrigated with Saline Saline -Foul Odor after Cleansing No No -Bioengineered Tissue No No Yes -Type of Bioengineered Tissue Epifix 18mm Disc -Expiration Date 10/02/28 -Product Lot Number [id number] -Percent Used 100 -Lot number of Saline Used [id number] -Bleeding Controlled with Pressure Pressure Pressure -Treatment Response Procedure Procedure Procedure Tolerated Well Tolerated Well Tolerated Well -Offloading No No -Debridement - Subq, 1st 20sq cm Yes Yes No -Apply Skin Sub - 1st 25 sq cm - Legs 1 -Epifix 18mm Disc 3 Pain Scale: 0-10 Numeric Is Patient Pain Free? Yes Yes Yes 03/23/24 16:04 Wound Center Nurse 2 #1 Right lateral lower leg -Time 16:05 -Correct Patient Yes -Correct Side, Site, Position Yes -Correct Procedure Yes -Procedure Performed Yes -Type of Procedure Debridement -Clinical Debridement Subcutaneous -Tissue Removed Subcutaneous -Post Debridement (cm) - Length 1.4 -Post Debridement (cm) - Width 1.4 -Post Debridement (cm) - Depth 0.1 -Total Square (Post) (cm) 1.96 -Area of Debridement (cm) - Length 1.4 -Area of Debridement (cm) - Width 1.4 -Total Square (Area) (cm) 1.96 -Tunneling No -Undermining/Tunneling No -Circular Undermining No -Wound/Ulcer Outcome Not Healed -Ulcer Cleansing Rinsed/ Irrigated with Saline -Foul Odor after Cleansing No -Bioengineered Tissue Yes -Type of Bioengineered Tissue Epifix 18mm Disc -Expiration Date 10/02/28 -Product Lot Number [id number] -Percent Used 100 -Lot number of Saline Used [id number] -Bleeding Controlled with Pressure -Treatment Response Procedure Tolerated Well -Offloading No -Debridement - Subq, 1st 20sq cm No -Apply Skin Sub - 1st 25 sq cm - Legs 1 -Epifix 18mm Disc 3 Pain Scale: 0-10 Numeric Is Patient Pain Free? Yes - Nurse 3 - General Ulcer D/C NN Start: 03/02/24 15:46 Freq: Status: Active Protocol: Activity Type Activity Date Activity User E-sign Co-sign Detail Recorded Client Recorded Date Recorded By Document 03/02/24 16:14 Laptop 03/02/24 16:15 Document 03/09/24 15:56 Laptop 03/09/24 15:57 Document 03/23/24 16:12 [id number] 03/23/24 16:12 03/02/24 03/09/24 03/23/24 16:14 15:56 16:12 Wound Care Center Nurse 3 #1 Right lateral lower leg -Ulcer Cleansing Rinsed/ Rinsed/ Rinsed/ Irrigated with Irrigated with Irrigated with Saline Saline Saline -Foul Odor after Cleansing No No No -Primary Dressing Applied Mepilex Border -Other Dressing hydrogel santyl -Primary Dressing Covered/Secured with Dry Gauze, Dry Gauze & Secured with Roll Gauze, Tape Secured with Tape -Mepilex Border 1 Right -Tubular Bandage Double Layer Double Layer Double Layer -Size of Tubigrip Used Size D Size D Size D -Size D ($) 2 2 2 Pain Scale: 0-10 Numeric Is Patient Pain Free? Yes Yes Yes - Visit Discharge Discharge Condition Stable Stable Stable Ambulatory Status Ambulatory Ambulatory Ambulatory Transportation Private Auto Private Auto Private Auto Medication Reconcilliation completed & Yes Yes Yes provided to patient/care provider Clinical Summary of Care Provided Yes Yes Yes Assessment/Plan Assessment/Plan (1) Non-pressure chronic ulcer of other part of right lower leg with fat layer exposed: CODE(S): L97.812 - Non-pressure chronic ulcer of other part of right lower leg with fat layer exposed (2) Other specified peripheral vascular diseases: CODE(S): I73.89 - Other specified peripheral vascular diseases
== END 2024-04-01 23:59 | disposition home or self-care (01) ==
LOC: WC 15:45
PROVIDERS: PCP Internal Medicine; Referring Provider Internal Medicine; Visit Provider Podiatrist Foot & Ankle Surgery
DX: L97.812 Non-pressure chronic ulcer of other part of right lower leg with fat layer exposed (principal); I73.89 Other specified peripheral vascular diseases; Z79.899 Other long term (current) drug therapy
CPT/HCPCS: 11042; 15271; Q4186

== ENCOUNTER 2024-04-27 15:45 | Outpatient (RCR) | payer MEDICARE, OTHER, SELFPAY ==
[2024-04-02 02:25] VITALS: BP 163/78; PULSE 90; RESP 16; TEMP 37.1; BMI 42.3
[2024-04-06 16:09] VITALS: BP 153/91; PULSE 86; RESP 18; TEMP 36.1; BMI 42.3
--- NOTE | 2024-04-06 16:43 | PN.PCM_ITS ---
History of Present Illness Date of Service: 04/06/24 Chief Complaint: Right leg ulceration History of Wound: Chronic wound since August 2023 Subjective Subjective Mrs. Gant is a 64-year-old female presenting to the wound care center today for follow-up evaluation of full-thickness ulceration to the right leg. She has left her dressing clean dry and intact. She continues to wear her compression sleeve. She is working without any pain. Denies trauma. Denies constitutional symptoms. No other pedal complaints at this time. Objective Data Objective Data Vital Signs: Vital Signs Temp Pulse Resp BP O2 Del Method 96.9 F L 86 18 153/91 H Room Air 04/06/24 16:04/06/24 16:04/06/24 16:04/06/24 16:04/06/24 16:09 Oxygen Delivery Method Room Air Weight: 122.47 kg Body Mass Index (BMI) 42.3 Physical Exam Narrative Vascular: DP and PT pulses are lightly palpable. CFT is brisk. Skin temperature great is warm to warm from proximal ankle to distal digits bilateral. No focal increase noted. Evidence of varicosities appreciated to the right lower extremity. Neurological: Light touch and epicritic sensation is intact. Dermatological: Full-thickness ulceration to the lateral aspect of the right lower extremity measuring 1.2 x 1.3 x 0.1 cm. Wound base is granular nature and improving. No evidence of erythema or proximal streaking. No drainage. No probe to bone. No sign of infection. Evidence of varicosities appreciated right lower extremity. Excisional debridement down to and including subcutaneous tissue with a number 3 mm dermal curette to the level of the right lower extremity full-thickness ulceration. Predebridement measurement was 1.1 x 1.2 x 0.1 cm. Postdebridement measurement is 1.2x 1.3 x 0.1 cm. EpiFix 18 mm disc was applied to the right full-thickness ulceration with 100% use. Third application. The graft site was free and clear of any infection. The wound/skin graft substitute was dressed with nonadherent bandage secured in place with Steri-Strips followed by bolster dressing as well as a double layer Tubigrip. Musculoskeletal: Mild pain to palpation to the full-thickness ulceration to right leg. No pain with calf compression. Debridement Note Debridement Note Debridement Free Text: Excisional debridement down to and including subcutaneous tissue with a number 3 mm dermal curette to the level of the right lower extremity full-thickness ulceration. Predebridement measurement was 1.1 x 1.2 x 0.1 cm. Postdebridement measurement is 1.2x 1.3 x 0.1 cm. EpiFix 18 mm disc was applied to the right full-thickness ulceration with 100% use. Third application. The graft site was free and clear of any infection. The wound/skin graft substitute was dressed with nonadherent bandage secured in place with Steri-Strips followed by bolster dressing as well as a double layer Tubigrip. Post-Debridement Measurements and Additional Note: Post-Debridement Measurements/Treatment - Nurse 1 - General Ulcer Assessment Start: 04/06/24 16:03 Freq: Status: Active Protocol: MELE Activity Type Activity Date Activity User E-sign Co-sign Detail Recorded Client Recorded Date Recorded By Document 04/06/24 16:09 [facility] 04/06/24 16:12 04/06/24 16:09 - Today's Visit Information Type of service Follow-up Visit (Physician/STAFF REGISTERED NURSE ) Arrival Mode Ambulatory Patient Identification Verified (Name & Yes ) Height and Weight Body Mass Index (BMI) 42.3 BMI Classification Obese Vital Signs Temperature (97.8 F-99.1 F) 96.9 F L Temperature Source Temporal Pulse Rate (60-100) 86 Pulse Location Monitor Respiratory Rate (12-18) 18 Respiratory rate source Observation Oxygen Delivery Method Room Air Blood Pressure (90/60-120/80) 153/91 H Blood Pressure Mean (mm Hg) 111 Source Monitor Position Sitting Blood Pressure Location Left Forearm History Since Last Visit- (Skip if this is Patient's initial visit) Have you changed medications since your No last visit? Any new allergies or adverse reactions No Had a fall/change in ADL's that may No increase risk of falls Signs or symptoms of abuse and/or No neglect since last visit Have you been in the hospital since your No last visit? Has dressing in place as prescribed Yes Has compression in place as prescribed Yes Has offloadiing in place as prescribed N/A Experienced any changes in pain level or No management Left Footwear Regular Shoe Right Footwear Regular Shoe Pain Scale: 0-10 Numeric Is Patient Pain Free? Yes - Nurse 1 - General Ulcer Measurement Start: 04/06/24 16:03 Freq: Status: Active Protocol: Activity Type Activity Date Activity User E-sign Co-sign Detail Recorded Client Recorded Date Recorded By Document 04/06/24 16:09 GM 04/06/24 16:12 GM Edit Result 04/06/24 16:09 GM (1) 04/06/24 16:13 GM (1) #1 Right lateral lower leg - Date of Last Picture (Recall this => 04/06/24 field) - Photo Taken No => Yes 04/06/24 16:09 Wound Center Nurse 1 #1 Right lateral lower leg -Current Size (cm) - Length 1 -Current Size (cm) - Width 1 -Current Size (cm) - Depth 0.1 -Total Square Cm 1 -Date of Last Picture (Recall this 04/06/24 field) -Photo Taken Yes -Epithelialization Small 1-33% -Exudate Amt Small -Exudate Type Yellow/Green -Wound Margin Distinct, Outline Attached -Granulation Amt Large (67-100%) -Granulation Quality Red -Slough/Fibrin No -Texture (Goldie-wound Skin Appearance) Assessed -Moisture (Goldie-wound Skin Appearance) Assessed -Color (Goldie-wound Skin Appearance) Assessed -Temperature (Goldie-wound Skin No Abnormality Appearance) (Pt Warm) -Ulcer Cleansing Soap and Water -Foul Odor after Cleansing No -Anesthetic Used 5% Lidocaine Gel Right Calf (cm) 42.5 Right Ankle (cm) 23.0 - Nurse 2 - General Ulcer CM Notes Start: 04/06/24 16:03 Freq: Status: Active Protocol: Activity Type Activity Date Activity User E-sign Co-sign Detail Recorded Client Recorded Date Recorded By Document 04/06/24 16:25 [id number] 04/06/24 16:30 04/06/24 16:25 Wound Center Nurse 2 #1 Right lateral lower leg -Time 16:26 -Correct Patient Yes -Correct Side, Site, Position Yes -Correct Procedure Yes -Procedure Performed Yes -Type of Procedure Debridement -Clinical Debridement Subcutaneous -Tissue Removed Subcutaneous -Post Debridement (cm) - Length 1.2 -Post Debridement (cm) - Width 1.3 -Post Debridement (cm) - Depth 0.1 -Total Square (Post) (cm) 1.56 -Area of Debridement (cm) - Length 1.2 -Area of Debridement (cm) - Width 1.3 -Total Square (Area) (cm) 1.56 -Tunneling No -Undermining/Tunneling No -Circular Undermining No -Wound/Ulcer Outcome Not Healed -Ulcer Cleansing Rinsed/ Irrigated with Saline -Foul Odor after Cleansing No -Bioengineered Tissue Yes -Type of Bioengineered Tissue Epifix 18mm Disc -Expiration Date 11/02/28 -Product Lot Number [id number] -Percent Used 100 -Lot number of Saline Used [id number] -Bleeding Controlled with Pressure -Treatment Response Procedure Tolerated Well -Offloading No -Debridement - Subq, 1st 20sq cm No -Apply Skin Sub - 1st 25 sq cm - Legs 1 -Epifix 18mm Disc 3 Pain Scale: 0-10 Numeric Is Patient Pain Free? Yes - Nurse 3 - General Ulcer D/C NN Start: 04/06/24 16:03 Freq: Status: Active Protocol: Activity Type Activity Date Activity User E-sign Co-sign Detail Recorded Client Recorded Date Recorded By Document 04/06/24 16:37 DL [id number] 04/06/24 16:37 DL 04/06/24 16:37 Wound Care Center Nurse 3 #1 Right lateral lower leg -Foul Odor after Cleansing No -Primary Dressing Applied Mepilex Border -Other Dressing epifix/nugel -Mepilex Border 1 Right -Tubular Bandage Single Layer -Size of Tubigrip Used Size D -Size D ($) 1 Treatment Response Procedure Tolerated Well Pain Scale: 0-10 Numeric Is Patient Pain Free? 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 All findings were discussed with the patient. All questions were answered to the patient's satisfaction. Excisional debridement down to and including subcutaneous tissue with a number 3 mm dermal curette to the level of the right lower extremity full-thickness ulceration. Predebridement measurement was 1.1 x 1.2 x 0.1 cm. Postdebridement measurement is 1.2x 1.3 x 0.1 cm. EpiFix 18 mm disc was applied to the right full-thickness ulceration with 100% use. Third application. The graft site was free and clear of any infection. The wound/skin graft substitute was dressed with nonadherent bandage secured in place with Steri-Strips followed by bolster dressing as well as a double layer Tubigrip. Follow-up at the wound care center with Dr. Guillen in 1 week. (2) Other specified peripheral vascular diseases: CODE(S): I73.89 - Other specified peripheral vascular diseases
--- NOTE | 2024-04-08 09:24 | WC ---
04/06/2024 RIGHT LATERAL LE
[2024-04-13 15:36] VITALS: BP 127/65; PULSE 81; RESP 16; BMI 42.3
--- NOTE | 2024-04-13 16:37 | PCM.WC.PN ---
History of Present Illness Date of Service: 04/13/24 Chief Complaint: Right leg ulceration History of Wound: Chronic wound since August 2023 Progress of Wound: Courtesy visit for Dr. Guillen. Right lateral leg ulceration is stable, beefy pink. She is tolerating the Epifix. She denies any drainage. Subjective Subjective Mrs. Gant is a 64-year-old female presenting to the wound care center today for follow-up evaluation of full-thickness ulceration to the right leg. She has left her dressing clean dry and intact. She continues to wear her compression sleeve. She is working without any pain. Denies trauma. Denies constitutional symptoms. No other pedal complaints at this time. Objective Data Objective Data Vital Signs: Vital Signs Temp Pulse Resp BP O2 Del Method 96.9 F L 81 16 127/65 H Room Air 04/06/24 16:09 04/13/24 15:36 04/13/24 15:36 04/13/24 15:36 04/13/24 15:36 Oxygen Delivery Method Room Air Weight: 270 lb Body Mass Index (BMI) 42.3 Charges/Coding Procedures Integumentary 150xxx-152xx: 16406 Skin sub graft trnk/arm/leg Physical Exam Const alert and oriented x3 HEENT normocephalic Resp normal respiratory effort Cardio Cardio Narrative: +1 pedal pulse right foot. Capillary refill is brisk. Extremity normal capillary refill Skin Wound Narrative: Right lateral leg ulcer, base has some granulation tissue present. Goldie wound clear. Debridement Note Debridement Note Wound debrided: Lateral leg ulcer Laterality: Right Wound Grade/Stage: 3 Type of Debridement: Excisional debridement Anesthesia Used: 5% Lidocaine Gel Depth: Down to and including healthy tissue and in the subcutaneous layer Percentage of wound debrided: 100 Instrument Used: 3mm curette Tissue Removed: Non viable tissue and slough Severity: Fat Layer Exposed Amount of bleeding with debridement: Mild Bleeding Controlled with: Compression and gauze Patient tolerated procedure: Patient tolerated procedure well Post-Debridement Measurements and Additional Note: Post-Debridement Measurements/Treatment - Nurse 1 - General Ulcer Assessment Start: 04/06/24 16:03 Freq: Status: Active Protocol: MELE Activity Type Activity Date Activity User E-sign Co-sign Detail Recorded Client Recorded Date Recorded By Document 04/06/24 16:09 GM 04/06/24 16:12 GM Document 04/13/24 15:36 KW k 04/13/24 15:41 KW 04/06/24 04/13/24 16:09 15:36 - Today's Visit Information Type of service Follow-up Visit Follow-up Visit (Physician/ATTENDANT HONOR BAR (Physician/ATTENDANT HONOR BAR ) ) Arrival Mode Ambulatory Ambulatory Patient Identification Verified (Name & Yes Yes ) Height and Weight Body Mass Index (BMI) 42.3 42.3 BMI Classification Obese Obese Vital Signs Temperature (97.8 F-99.1 F) 96.9 F L Temperature Source Temporal Pulse Rate (60-100) 86 81 Pulse Location Monitor Monitor Respiratory Rate (12-18) 18 16 Respiratory rate source Observation Observation Oxygen Delivery Method Room Air Room Air Blood Pressure (90/60-120/80) 153/91 H 127/65 H Blood Pressure Mean (mm Hg) 111 85 Source Monitor Monitor Position Sitting Semi-Fowlers Blood Pressure Location Left Forearm Left Forearm History Since Last Visit- (Skip if this is Patient's initial visit) Have you changed medications since your No No last visit? Any new allergies or adverse reactions No No Had a fall/change in ADL's that may No No increase risk of falls Signs or symptoms of abuse and/or No No neglect since last visit Have you been in the hospital since your No No last visit? Has dressing in place as prescribed Yes Yes Has compression in place as prescribed Yes Yes Has offloadiing in place as prescribed N/A N/A Experienced any changes in pain level or No No management Left Footwear Regular Shoe Regular Shoe Right Footwear Regular Shoe Regular Shoe Pain Scale: 0-10 Numeric Is Patient Pain Free? Yes Yes - Nurse 1 - General Ulcer Measurement Start: 04/06/24 16:03 Freq: Status: Active Protocol: Activity Type Activity Date Activity User E-sign Co-sign Detail Recorded Client Recorded Date Recorded By Document 04/06/24 16:09 [facility] 04/06/24 16:12 Edit Result 04/06/24 16:09 (1) 04/06/24 16:13 Document 04/13/24 15:36 KW k 04/13/24 15:41 KW (1) #1 Right lateral lower leg - Date of Last Picture (Recall this => 04/06/24 field) - Photo Taken No => Yes 04/06/24 04/13/24 16:09 15:36 Wound Center Nurse 1 #1 Right lateral lower leg -Current Size (cm) - Length 1 1.5 -Current Size (cm) - Width 1 1.6 -Current Size (cm) - Depth 0.1 0 -Total Square Cm 1 2.40 -Date of Last Picture (Recall this 04/06/24 field) -Photo Taken Yes -Epithelialization Small 1-33% Small 1-33% -Exudate Amt Small Small -Exudate Type Yellow/Green Serosanguineous -Wound Margin Distinct, Distinct, Outline Outline Attached Attached -Granulation Amt Large (67-100%) Large (67-100%) -Granulation Quality Red Red -Slough/Fibrin No -Necrosis Amt Small (1-33%) -Necrotic Tissue Type Adherent Slough -Texture (Goldie-wound Skin Appearance) Assessed Assessed -Moisture (Goldie-wound Skin Appearance) Assessed Assessed -Color (Goldie-wound Skin Appearance) Assessed Assessed -Temperature (Goldie-wound Skin No Abnormality No Abnormality Appearance) (Pt Warm) (Pt Warm) -Tenderness on Palpation (Goldie-wound No Skin Appearance) -Ulcer Cleansing Soap and Water Soap and Water -Foul Odor after Cleansing No No -Anesthetic Used 5% Lidocaine 5% Lidocaine Gel Gel Right Calf (cm) 42.5 39.4 Right Ankle (cm) 23.0 23 - Nurse 2 - General Ulcer CM Notes Start: 04/06/24 16:03 Freq: Status: Active Protocol: Activity Type Activity Date Activity User E-sign Co-sign Detail Recorded Client Recorded Date Recorded By Document 04/06/24 16:25 [id number] 04/06/24 16:30 Document 04/13/24 16:00 [facility] 04/13/24 16:04 04/06/24 04/13/24 16:25 16:00 Wound Center Nurse 2 #1 Right lateral lower leg -Time 16:26 16:00 -Correct Patient Yes Yes -Correct Side, Site, Position Yes Yes -Correct Procedure Yes Yes -Procedure Performed Yes Yes -Type of Procedure Debridement Debridement -Clinical Debridement Subcutaneous Subcutaneous -Tissue Removed Subcutaneous Subcutaneous -Post Debridement (cm) - Length 1.2 1.4 -Post Debridement (cm) - Width 1.3 1.5 -Post Debridement (cm) - Depth 0.1 0.1 -Total Square (Post) (cm) 1.56 2.10 -Area of Debridement (cm) - Length 1.2 1.4 -Area of Debridement (cm) - Width 1.3 1.5 -Total Square (Area) (cm) 1.56 2.10 -Tunneling No No -Undermining/Tunneling No No -Circular Undermining No No -Wound/Ulcer Outcome Not Healed Not Healed -Ulcer Cleansing Rinsed/ Rinsed/ Irrigated with Irrigated with Saline Saline -Foul Odor after Cleansing No No -Bioengineered Tissue Yes No -Type of Bioengineered Tissue Epifix 18mm Epifix 18mm Disc Disc -Expiration Date 11/02/28 10/02/28 -Product Lot Number [id number] -Percent Used 100 100 -Lot number of Saline Used [id number] -Bleeding Controlled with Pressure Pressure -Treatment Response Procedure Procedure Tolerated Well Tolerated Well -Offloading No -Debridement - Subq, 1st 20sq cm No No -Apply Skin Sub - 1st 25 sq cm - Legs 1 1 -Epifix 18mm Disc 3 3 Pain Scale: 0-10 Numeric Is Patient Pain Free? Yes Yes - Nurse 3 - General Ulcer D/C NN Start: 04/06/24 16:03 Freq: Status: Active Protocol: Activity Type Activity Date Activity User E-sign Co-sign Detail Recorded Client Recorded Date Recorded By Document 04/06/24 16:37 DL [email or web address] 04/06/24 16:37 DL Document 04/13/24 16:00 GM 04/13/24 16:04 GM Edit Result 04/13/24 16:00 GM (1) 04/13/24 16:04 GM (1) Discharge Condition => Stable Ambulatory Status => Ambulatory Transportation => Private Auto Clinical Summary of Care Provided => Yes 04/06/24 04/13/24 16:37 16:00 Wound Care Center Nurse 3 #1 Right lateral lower leg -Ulcer Cleansing Not Cleansed -Foul Odor after Cleansing No No -Primary Dressing Applied Mepilex Border Mepilex Border -Other Dressing epifix/nugel -Mepilex Border 1 1 Right -Tubular Bandage Single Layer Double Layer -Size of Tubigrip Used Size D Size D -Size D ($) 1 2 Treatment Response Procedure Tolerated Well Pain Scale: 0-10 Numeric Is Patient Pain Free? Yes Yes WC - Visit Discharge Discharge Condition Stable Stable Ambulatory Status Ambulatory Ambulatory Transportation Private Auto Private Auto Clinical Summary of Care Provided Yes Assessment/Plan Assessment/Plan (1) Non-pressure chronic ulcer of other part of right lower leg with fat layer exposed: CODE(S): L97.812 - Non-pressure chronic ulcer of other part of right lower leg with fat layer exposed PLAN: Courtesy visit for Dr. Guillen. Patient was examined and evaluated. Wound care - Epifix 18 mm disc (#4) placed. 100% of product used. Covered with wound veil that was secured with steri strips. Topped with collagen hydrogel and covered with foam/Winner SAP dressing. Compression -Double layer Tubigrip. Encouraged leg elevation when sitting. Follow-up at the wound care center with Dr. Guillen in 1 week. (2) Other specified peripheral vascular diseases: CODE(S): I73.89 - Other specified peripheral vascular diseases
--- NOTE | 2024-04-14 11:32 | WC ---
04/13/2024 RIGHT LATERAL LE
[2024-04-20 16:00] VITALS: BP 137/72; PULSE 74; RESP 16; TEMP 36.4; BMI 42.3
--- NOTE | 2024-04-20 16:49 | PN.PCM_ITS ---
History of Present Illness Date of Service: 04/20/24 Chief Complaint: Right leg ulceration History of Wound: Chronic wound since August 2023 Progress of Wound: Courtesy visit for Dr. Guillen. Right lateral leg ulceration is stable, beefy pink. She is tolerating the Epifix. She denies any drainage. Subjective Subjective Mrs. Gant is a 64-year-old female presenting to the wound care center today for follow-up evaluation of full-thickness ulceration to the right leg. She has left her dressing clean dry and intact. She continues to wear her compression sleeve. She is working without any pain. Denies trauma. Denies constitutional symptoms. No other pedal complaints at this time Objective Data Objective Data Vital Signs: Vital Signs Temp Pulse Resp BP O2 Del Method 97.5 F L 74 16 137/72 H Room Air 04/20/24 16:00 04/20/24 16:00 04/20/24 16:00 04/20/24 16:00 04/20/24 16:00 Oxygen Delivery Method Room Air Weight: 122.47 kg Body Mass Index (BMI) 42.3 Physical Exam Narrative Vascular: DP and PT pulses are lightly palpable. CFT is brisk. Skin temperature great is warm to warm from proximal ankle to distal digits bilateral. No focal increase noted. Evidence of varicosities appreciated to the right lower extremity. Neurological: Light touch and epicritic sensation is intact. Dermatological: Full-thickness ulceration to the lateral aspect of the right lower extremity measuring 1.4 x 1.3 x 0.1 cm. Wound base is granular nature and improving. No evidence of erythema or proximal streaking. No drainage. No probe to bone. No sign of infection. Evidence of varicosities appreciated right lower extremity. Excisional debridement down to and including subcutaneous tissue with a number 3 mm dermal curette to the level of the right lower extremity full-thickness ulceration. Predebridement measurement was 1.2 x 1.2 x 0.1 cm. Postdebridement measurement is 1.4 x 1.3 x 0.1 cm. EpiFix 18 mm disc was applied to the right full-thickness ulceration with 100% use. Fifth application. The graft site was free and clear of any infection. The wound/skin graft substitute was dressed with nonadherent bandage secured in place with Steri-Strips followed by bolster dressing as well as a double layer Tubigrip. Musculoskeletal: Mild pain to palpation to the full-thickness ulceration to right leg. No pain with calf compression. Debridement Note Debridement Note Post-Debridement Measurements and Additional Note: Post-Debridement Measurements/Treatment - Nurse 1 - General Ulcer Assessment Start: 04/06/24 16:03 Freq: Status: Active Protocol: WC.LOWEXT Activity Type Activity Date Activity User E-sign Co-sign Detail Recorded Client Recorded Date Recorded By Document 04/06/24 16:09 GM 04/06/24 16:12 GM Document 04/13/24 15:36 KW k 04/13/24 15:41 KW Document 04/20/24 16:00 GM 04/20/24 16:02 GM 04/06/24 04/13/24 04/20/24 16:09 15:36 16:00 - Today's Visit Information Type of service Follow-up Visit Follow-up Visit Follow-up Visit (Physician/MANAGER MACHINE (Physician/MANAGER MACHINE (Physician/MANAGER MACHINE ) ) ) Arrival Mode Ambulatory Ambulatory Ambulatory Transfer Assistance None Patient Identification Verified (Name & Yes Yes Yes ) Height and Weight Body Mass Index (BMI) 42.3 42.3 42.3 BMI Classification Obese Obese Obese Vital Signs Temperature (97.8 F-99.1 F) 96.9 F L 97.5 F L Temperature Source Temporal Temporal Pulse Rate (60-100) 86 81 74 Pulse Location Monitor Monitor Monitor Respiratory Rate (12-18) 18 16 16 Respiratory rate source Observation Observation Observation Oxygen Delivery Method Room Air Room Air Room Air Blood Pressure (90/60-120/80) 153/91 H 127/65 H 137/72 H Blood Pressure Mean (mm Hg) 111 85 93 Source Monitor Monitor Monitor Position Sitting Semi-Fowlers Sitting Blood Pressure Location Left Forearm Left Forearm Left Forearm History Since Last Visit- (Skip if this is Patient's initial visit) Have you changed medications since your No No No last visit? Any new allergies or adverse reactions No No No Had a fall/change in ADL's that may No No No increase risk of falls Signs or symptoms of abuse and/or No No No neglect since last visit Have you been in the hospital since your No No No last visit? Has dressing in place as prescribed Yes Yes Yes Has compression in place as prescribed Yes Yes Yes Has offloadiing in place as prescribed N/A N/A N/A Experienced any changes in pain level or No No No management Left Footwear Regular Shoe Regular Shoe Right Footwear Regular Shoe Regular Shoe Pain Scale: 0-10 Numeric Is Patient Pain Free? Yes Yes Yes - Nurse 1 - General Ulcer Measurement Start: 04/06/24 16:03 Freq: Status: Active Protocol: Activity Type Activity Date Activity User E-sign Co-sign Detail Recorded Client Recorded Date Recorded By Document 04/06/24 16:09 GM 04/06/24 16:12 GM Edit Result 04/06/24 16:09 GM (1) 04/06/24 16:13 GM Document 04/13/24 15:36 KW k 04/13/24 15:41 KW Document 04/20/24 16:00 GM 04/20/24 16:02 GM (1) #1 Right lateral lower leg - Date of Last Picture (Recall this => 04/06/24 field) - Photo Taken No => Yes 04/06/24 04/13/24 04/20/24 16:09 15:36 16:00 Wound Center Nurse 1 #1 Right lateral lower leg -Current Size (cm) - Length 1 1.5 1.4 -Current Size (cm) - Width 1 1.6 1.7 -Current Size (cm) - Depth 0.1 0 0.1 -Total Square Cm 1 2.40 2.38 -Date of Last Picture (Recall this 04/06/24 field) -Photo Taken Yes No -Epithelialization Small 1-33% Small 1-33% Large 67-100% -Exudate Amt Small Small Small -Exudate Type Yellow/Green Serosanguineous Yellow/Green -Wound Margin Distinct, Distinct, Distinct, Outline Outline Outline Attached Attached Attached -Granulation Amt Large (67-100%) Large (67-100%) -Granulation Quality Red Red -Slough/Fibrin No -Necrosis Amt Small (1-33%) Medium (34-66%) -Necrotic Tissue Type Adherent Slough -Texture (Goldie-wound Skin Appearance) Assessed Assessed Assessed -Moisture (Goldie-wound Skin Appearance) Assessed Assessed Assessed -Color (Goldie-wound Skin Appearance) Assessed Assessed Assessed -Temperature (Goldie-wound Skin No Abnormality No Abnormality No Abnormality Appearance) (Pt Warm) (Pt Warm) (Pt Warm) -Tenderness on Palpation (Goldie-wound No Skin Appearance) -Ulcer Cleansing Soap and Water Soap and Water Soap and Water -Foul Odor after Cleansing No No No -Anesthetic Used 5% Lidocaine 5% Lidocaine 5% Lidocaine Gel Gel Gel Right Calf (cm) 42.5 39.4 43.1 Right Ankle (cm) 23.0 23 23.1 - Nurse 2 - General Ulcer CM Notes Start: 04/06/24 16:03 Freq: Status: Active Protocol: Activity Type Activity Date Activity User E-sign Co-sign Detail Recorded Client Recorded Date Recorded By Document 04/06/24 16:25 [id number] 04/06/24 16:30 Document 04/13/24 16:00 [facility] 04/13/24 16:04 Document 04/20/24 16:04 [id number] 04/20/24 16:10 04/06/24 04/13/24 04/20/24 16:25 16:00 16:04 Wound Center Nurse 2 #1 Right lateral lower leg -Time 16:26 16:00 16:09 -Correct Patient Yes Yes Yes -Correct Side, Site, Position Yes Yes Yes -Correct Procedure Yes Yes Yes -Procedure Performed Yes Yes Yes -Type of Procedure Debridement Debridement Debridement -Clinical Debridement Subcutaneous Subcutaneous Subcutaneous -Tissue Removed Subcutaneous Subcutaneous Subcutaneous -Post Debridement (cm) - Length 1.2 1.4 1.4 -Post Debridement (cm) - Width 1.3 1.5 1.3 -Post Debridement (cm) - Depth 0.1 0.1 0.1 -Total Square (Post) (cm) 1.56 2.10 1.82 -Area of Debridement (cm) - Length 1.2 1.4 1.4 -Area of Debridement (cm) - Width 1.3 1.5 1.3 -Total Square (Area) (cm) 1.56 2.10 1.82 -Tunneling No No No -Undermining/Tunneling No No No -Circular Undermining No No No -Wound/Ulcer Outcome Not Healed Not Healed Not Healed -Ulcer Cleansing Rinsed/ Rinsed/ Rinsed/ Irrigated with Irrigated with Irrigated with Saline Saline Saline -Foul Odor after Cleansing No No No -Bioengineered Tissue Yes No Yes -Type of Bioengineered Tissue Epifix 18mm Epifix 18mm Epifix Disc Disc -Expiration Date 11/02/28 10/02/28 12/03/28 -Product Lot Number [id number] -Percent Used 100 100 100 -Lot number of Saline Used [id number] -Bleeding Controlled with Pressure Pressure Pressure -Treatment Response Procedure Procedure Procedure Tolerated Well Tolerated Well Tolerated Well -Offloading No No -Debridement - Subq, 1st 20sq cm No No No -Apply Skin Sub - 1st 25 sq cm - Legs 1 1 1 -Epifix (per sq cm) 4 -Epifix 18mm Disc 3 3 Pain Scale: 0-10 Numeric Is Patient Pain Free? Yes Yes Yes - Nurse 3 - General Ulcer D/C NN Start: 04/06/24 16:03 Freq: Status: Active Protocol: Activity Type Activity Date Activity User E-sign Co-sign Detail Recorded Client Recorded Date Recorded By Document 04/06/24 16:37 DL [email or web address] 04/06/24 16:37 DL Document 04/13/24 16:00 GM 04/13/24 16:04 GM Edit Result 04/13/24 16:00 GM (1) 04/13/24 16:04 GM Document 04/20/24 16:11 [id number] 04/20/24 16:12 JF (1) Discharge Condition => Stable Ambulatory Status => Ambulatory Transportation => Private Auto Clinical Summary of Care Provided => Yes 04/06/24 04/13/24 04/20/24 16:37 16:00 16:11 Wound Care Center Nurse 3 #1 Right lateral lower leg -Ulcer Cleansing Not Cleansed Rinsed/ Irrigated with Saline -Foul Odor after Cleansing No No No -Primary Dressing Applied Mepilex Border Mepilex Border Mepilex Border -Other Dressing epifix/nugel -Mepilex Border 1 1 1 Right -Tubular Bandage Single Layer Double Layer Double Layer -Size of Tubigrip Used Size D Size D Size D -Size D ($) 1 2 2 Treatment Response Procedure Tolerated Well Pain Scale: 0-10 Numeric Is Patient Pain Free? Yes Yes Yes - Visit Discharge Discharge Condition Stable Stable Ambulatory Status Ambulatory Ambulatory Ambulatory Transportation Private Auto Private Auto Private Auto Medication Reconcilliation completed & Yes provided to patient/care provider Clinical Summary of Care Provided Yes Yes Assessment/Plan Assessment/Plan (1) Non-pressure chronic ulcer of other part of right lower leg with fat layer exposed: CODE(S): L97.812 - Non-pressure chronic ulcer of other part of right lower leg with fat layer exposed PLAN: Patient was examined and evaluated. All findings were discussed with the patient. All questions were answered to the patient's satisfaction. Excisional debridement down to and including subcutaneous tissue with a number 3 mm dermal curette to the level of the right lower extremity full-thickness ulceration. Predebridement measurement was 1.2 x 1.2 x 0.1 cm. Postdebridement measurement is 1.4 x 1.3 x 0.1 cm. EpiFix 18 mm disc was applied to the right full-thickness ulceration with 100% use. Fifth application. The graft site was free and clear of any infection. The wound/skin graft substitute was dressed with nonadherent bandage secured in place with Steri-Strips followed by bolster dressing as well as a double layer Tubigrip. Follow-up at the wound care center with Dr. Guillen in 1 week. (2) Other specified peripheral vascular diseases: CODE(S): I73.89 - Other specified peripheral vascular diseases
--- NOTE | 2024-04-22 11:16 | WC ---
04/13/2024 RIGHT LATERAL LE
--- NOTE | 2024-04-27 15:51 | PN.PCM_ITS ---
History of Present Illness Date of Service: 04/27/24 Chief Complaint: Right leg ulceration History of Wound: Chronic wound since August 2023 Progress of Wound: Courtesy visit for Dr. Guillen. Right lateral leg ulceration is stable, beefy pink. She is tolerating the Epifix. She denies any drainage. Subjective Subjective Ms. Gant is a 64-year-old female presenting the wound care center today for follow-up and evaluation of full-thickness ulceration secondary to venous stasis with application of great skin graft substitute. She is kept the graft clean dry and intact. Patient denies any pain to the right leg. She denies trauma. Denies constitutional symptoms. No other pedal complaints at this time. Objective Data Objective Data Vital Signs: Vital Signs Temp Pulse Resp BP O2 Del Method 97.5 F L 74 16 137/72 H Room Air 04/20/24 16:00 04/20/24 16:00 04/20/24 16:00 04/20/24 16:00 04/20/24 16:00 Oxygen Delivery Method Room Air Weight: 122.47 kg Body Mass Index (BMI) 42.3 Physical Exam Narrative Vascular: DP and PT pulses are lightly palpable. CFT is brisk. Skin temperature great is warm to warm from proximal ankle to distal digits bilateral. No focal increase noted. Evidence of varicosities appreciated to the right lower extremity. Neurological: Light touch and epicritic sensation is intact. Dermatological: Full-thickness ulceration to the lateral aspect of the right lower extremity measuring 1.3 x 1.0 x 0.1 cm. Wound base is granular nature and improving. No evidence of erythema or proximal streaking. No drainage. No probe to bone. No sign of infection. Evidence of varicosities appreciated right lower extremity. Excisional debridement down to and including subcutaneous tissue with a number 3 mm dermal curette to the level of the right lower extremity full-thickness ulceration. Predebridement measurement was 1.1 x 0.9 x 0.1 cm. Postdebridement measurement is 1.3 x 1.0 x 0.1 cm. EpiFix 18 mm disc was applied to the right full-thickness ulceration with 100% use. Sixth application. The graft site was free and clear of any infection. The wound/skin graft substitute was dressed with nonadherent bandage secured in place with Steri-Strips followed by bolster dressing as well as a double layer Tubigrip. Musculoskeletal: Mild pain to palpation to the full-thickness ulceration to right leg. No pain with calf compression. Debridement Note Debridement Note Post-Debridement Measurements and Additional Note: Post-Debridement Measurements/Treatment - Nurse 1 - General Ulcer Assessment Start: 04/06/24 16:03 Freq: Status: Active Protocol: [email or web address] Activity Type Activity Date Activity User E-sign Co-sign Detail Recorded Client Recorded Date Recorded By Document 04/06/24 16:09 GM 04/06/24 16:12 GM Document 04/13/24 15:36 KW k 04/13/24 15:41 KW Document 04/20/24 16:00 GM 04/20/24 16:02 GM 04/06/24 04/13/24 04/20/24 16:09 15:36 16:00 - Today's Visit Information Type of service Follow-up Visit Follow-up Visit Follow-up Visit (Physician/BRASS CHASER (Physician/BRASS CHASER (Physician/BRASS CHASER ) ) ) Arrival Mode Ambulatory Ambulatory Ambulatory Transfer Assistance None Patient Identification Verified (Name & Yes Yes Yes ) Height and Weight Body Mass Index (BMI) 42.3 42.3 42.3 BMI Classification Obese Obese Obese Vital Signs Temperature (97.8 F-99.1 F) 96.9 F L 97.5 F L Temperature Source Temporal Temporal Pulse Rate (60-100) 86 81 74 Pulse Location Monitor Monitor Monitor Respiratory Rate (12-18) 18 16 16 Respiratory rate source Observation Observation Observation Oxygen Delivery Method Room Air Room Air Room Air Blood Pressure (90/60-120/80) 153/91 H 127/65 H 137/72 H Blood Pressure Mean (mm Hg) 111 85 93 Source Monitor Monitor Monitor Position Sitting Semi-Fowlers Sitting Blood Pressure Location Left Forearm Left Forearm Left Forearm History Since Last Visit- (Skip if this is Patient's initial visit) Have you changed medications since your No No No last visit? Any new allergies or adverse reactions No No No Had a fall/change in ADL's that may No No No increase risk of falls Signs or symptoms of abuse and/or No No No neglect since last visit Have you been in the hospital since your No No No last visit? Has dressing in place as prescribed Yes Yes Yes Has compression in place as prescribed Yes Yes Yes Has offloadiing in place as prescribed N/A N/A N/A Experienced any changes in pain level or No No No management Left Footwear Regular Shoe Regular Shoe Right Footwear Regular Shoe Regular Shoe Pain Scale: 0-10 Numeric Is Patient Pain Free? Yes Yes Yes - Nurse 1 - General Ulcer Measurement Start: 04/06/24 16:03 Freq: Status: Active Protocol: Activity Type Activity Date Activity User E-sign Co-sign Detail Recorded Client Recorded Date Recorded By Document 04/06/24 16:09 GM 04/06/24 16:12 GM Edit Result 04/06/24 16:09 GM (1) 04/06/24 16:13 GM Document 04/13/24 15:36 KW k 04/13/24 15:41 KW Document 04/20/24 16:00 GM 04/20/24 16:02 GM (1) #1 Right lateral lower leg - Date of Last Picture (Recall this => 04/06/24 field) - Photo Taken No => Yes 04/06/24 04/13/24 04/20/24 16:09 15:36 16:00 Wound Center Nurse 1 #1 Right lateral lower leg -Current Size (cm) - Length 1 1.5 1.4 -Current Size (cm) - Width 1 1.6 1.7 -Current Size (cm) - Depth 0.1 0 0.1 -Total Square Cm 1 2.40 2.38 -Date of Last Picture (Recall this 04/06/24 field) -Photo Taken Yes No -Epithelialization Small 1-33% Small 1-33% Large 67-100% -Exudate Amt Small Small Small -Exudate Type Yellow/Green Serosanguineous Yellow/Green -Wound Margin Distinct, Distinct, Distinct, Outline Outline Outline Attached Attached Attached -Granulation Amt Large (67-100%) Large (67-100%) -Granulation Quality Red Red -Slough/Fibrin No -Necrosis Amt Small (1-33%) Medium (34-66%) -Necrotic Tissue Type Adherent Slough -Texture (Goldie-wound Skin Appearance) Assessed Assessed Assessed -Moisture (Goldie-wound Skin Appearance) Assessed Assessed Assessed -Color (Goldie-wound Skin Appearance) Assessed Assessed Assessed -Temperature (Goldie-wound Skin No Abnormality No Abnormality No Abnormality Appearance) (Pt Warm) (Pt Warm) (Pt Warm) -Tenderness on Palpation (Goldie-wound No Skin Appearance) -Ulcer Cleansing Soap and Water Soap and Water Soap and Water -Foul Odor after Cleansing No No No -Anesthetic Used 5% Lidocaine 5% Lidocaine 5% Lidocaine Gel Gel Gel Right Calf (cm) 42.5 39.4 43.1 Right Ankle (cm) 23.0 23 23.1 - Nurse 2 - General Ulcer CM Notes Start: 04/06/24 16:03 Freq: Status: Active Protocol: Activity Type Activity Date Activity User E-sign Co-sign Detail Recorded Client Recorded Date Recorded By Document 04/06/24 16:25 [id number] 04/06/24 16:30 Document 04/13/24 16:00 [facility] 04/13/24 16:04 Document 04/20/24 16:04 [id number] 04/20/24 16:10 04/06/24 04/13/24 04/20/24 16:25 16:00 16:04 Wound Center Nurse 2 #1 Right lateral lower leg -Time 16:26 16:00 16:09 -Correct Patient Yes Yes Yes -Correct Side, Site, Position Yes Yes Yes -Correct Procedure Yes Yes Yes -Procedure Performed Yes Yes Yes -Type of Procedure Debridement Debridement Debridement -Clinical Debridement Subcutaneous Subcutaneous Subcutaneous -Tissue Removed Subcutaneous Subcutaneous Subcutaneous -Post Debridement (cm) - Length 1.2 1.4 1.4 -Post Debridement (cm) - Width 1.3 1.5 1.3 -Post Debridement (cm) - Depth 0.1 0.1 0.1 -Total Square (Post) (cm) 1.56 2.10 1.82 -Area of Debridement (cm) - Length 1.2 1.4 1.4 -Area of Debridement (cm) - Width 1.3 1.5 1.3 -Total Square (Area) (cm) 1.56 2.10 1.82 -Tunneling No No No -Undermining/Tunneling No No No -Circular Undermining No No No -Wound/Ulcer Outcome Not Healed Not Healed Not Healed -Ulcer Cleansing Rinsed/ Rinsed/ Rinsed/ Irrigated with Irrigated with Irrigated with Saline Saline Saline -Foul Odor after Cleansing No No No -Bioengineered Tissue Yes No Yes -Type of Bioengineered Tissue Epifix 18mm Epifix 18mm Epifix Disc Disc -Expiration Date 11/02/28 10/02/28 12/03/28 -Product Lot Number [id number] -Percent Used 100 100 100 -Lot number of Saline Used [id number] -Bleeding Controlled with Pressure Pressure Pressure -Treatment Response Procedure Procedure Procedure Tolerated Well Tolerated Well Tolerated Well -Offloading No No -Debridement - Subq, 1st 20sq cm No No No -Apply Skin Sub - 1st 25 sq cm - Legs 1 1 1 -Epifix (per sq cm) 4 -Epifix 18mm Disc 3 3 Pain Scale: 0-10 Numeric Is Patient Pain Free? Yes Yes Yes - Nurse 3 - General Ulcer D/C NN Start: 04/06/24 16:03 Freq: Status: Active Protocol: Activity Type Activity Date Activity User E-sign Co-sign Detail Recorded Client Recorded Date Recorded By Document 04/06/24 16:37 DL [email or web address] 04/06/24 16:37 DL Document 04/13/24 16:00 GM 04/13/24 16:04 GM Edit Result 04/13/24 16:00 GM (1) 04/13/24 16:04 GM Document 04/20/24 16:11 [id number] 04/20/24 16:12 JF (1) Discharge Condition => Stable Ambulatory Status => Ambulatory Transportation => Private Auto Clinical Summary of Care Provided => Yes 04/06/24 04/13/24 04/20/24 16:37 16:00 16:11 Wound Care Center Nurse 3 #1 Right lateral lower leg -Ulcer Cleansing Not Cleansed Rinsed/ Irrigated with Saline -Foul Odor after Cleansing No No No -Primary Dressing Applied Mepilex Border Mepilex Border Mepilex Border -Other Dressing epifix/nugel -Mepilex Border 1 1 1 Right -Tubular Bandage Single Layer Double Layer Double Layer -Size of Tubigrip Used Size D Size D Size D -Size D ($) 1 2 2 Treatment Response Procedure Tolerated Well Pain Scale: 0-10 Numeric Is Patient Pain Free? Yes Yes Yes - Visit Discharge Discharge Condition Stable Stable Ambulatory Status Ambulatory Ambulatory Ambulatory Transportation Private Auto Private Auto Private Auto Medication Reconcilliation completed & Yes provided to patient/care provider Clinical Summary of Care Provided Yes Yes Assessment/Plan Assessment/Plan (1) Non-pressure chronic ulcer of other part of right lower leg with fat layer exposed: CODE(S): L97.812 - Non-pressure chronic ulcer of other part of right lower leg with fat layer exposed PLAN: Patient was examined and evaluated. All findings were discussed with the patient. All questions were answered to the patient's satisfaction. Excisional debridement down to and including subcutaneous tissue with a number 3 mm dermal curette to the level of the right lower extremity full-thickness ulceration. Predebridement measurement was 1.1 x 0.9 x 0.1 cm. Postdebridement measurement is 1.3 x 1.0 x 0.1 cm. EpiFix 18 mm disc was applied to the right full-thickness ulceration with 100% use. Sixth application. The graft site was free and clear of any infection. The wound/skin graft substitute was dressed with nonadherent bandage secured in place with Steri-Strips followed by bolster dressing as well as a double layer Tubigrip. Follow-up at the wound care center with Dr. Guillen in 1 week. (2) Other specified peripheral vascular diseases: CODE(S): I73.89 - Other specified peripheral vascular diseases
[2024-04-27 15:53] VITALS: BP 147/62; PULSE 72; RESP 16; TEMP 36.3; BMI 42.3
== END 2024-05-01 23:59 | disposition home or self-care (01) ==
LOC: WC 15:45
PROVIDERS: PCP Internal Medicine; Referring Provider Internal Medicine; Visit Provider Podiatrist Foot & Ankle Surgery
DX: I83.018 Varicose veins of right lower extremity with ulcer other part of lower leg (principal); L97.812 Non-pressure chronic ulcer of other part of right lower leg with fat layer exposed; I73.89 Other specified peripheral vascular diseases
CPT/HCPCS: 15271; Q4186

== ENCOUNTER → 2024-07-05 | Outpatient (CLI) | payer MEDICARE, SELFPAY | END | disposition home or self-care (01) | PROVIDERS: PCP Internal Medicine; Referring Provider Podiatrist; Visit Provider Internal Medicine | DX: L97.919 Non-pressure chronic ulcer of unspecified part of right lower leg with unspecified severity (principal) | CPT/HCPCS: 87101 ==

== ENCOUNTER → 2024-07-19 | Outpatient (CLI) | payer MEDICARE, SELFPAY | END | disposition home or self-care (01) | PROVIDERS: PCP Internal Medicine; Referring Provider Podiatrist Foot & Ankle Surgery; Visit Provider Podiatrist Foot & Ankle Surgery | DX: S81.801A Unspecified open wound, right lower leg, initial encounter (principal) | CPT/HCPCS: 87070; 87075; 87101; 87205 ==